=== PATIENT | male | born 1950 | race Caucasian/White ===

== ENCOUNTER 2017-08-02 07:03 | Inpatient (IN) | payer MEDICARE, MEDICAID ==
[2017-08-02 08:21] LABS: Hematocrit 35 % (42-52); Mean Corpuscular HGB Conc 32 g/dl (31-36); Mean Corpuscular Hemoglobin 25 pg (27-31); Mean Corpuscular Volume 78 fL (80-94); Mean Platelet Volume 7 um3 (7.4-10.4); Red Blood Count 4.44 10^6/ul (4.0-5.4); Red Cell Distribution Width 17 % (10.5-15); White Blood Count 4.9 10^3/ul (3.5-10.8)
[2017-08-02 08:22] LABS: Urine Bacteria Absent (Absent); Urine Bilirubin Negative (Negative); Urine Glucose Negative (Negative); Urine Nitrite Negative (Negative)
[2017-08-02 08:28] LABS: ALT 8 U/L (7-52); AST 15 U/L (13-39); Alkaline Phosphatase 83 U/L (34-104); Anion Gap 7 mmol/L (2-11); BUN/Creatinine Ratio 9.7 (8-20); Blood Urea Nitrogen 11 mg/dL (6-24); CO2 Carbon Dioxide 27 mmol/L (22-32); Calcium 9.8 mg/dL (8.6-10.3); Chloride 106 mmol/L (101-111); EGFR African American 83.8 (>60); EGFR Non-African American 65.1 (>60); Globulin 3.4 g/dL (2-4); Glucose 112 mg/dL (70-100); Potassium 3.8 mmol/L (3.5-5.0); Sodium 140 mmol/L (133-145); Total Protein 7.4 g/dL (6.4-8.9)
[2017-08-02 08:33] LABS: Benzodiazepine Urine Screen Presumptive Positive (None Detect)
[2017-08-02] MEDS ORDERED: Loperamide CAP* 2 MG AFTER EACH LOOSE STOOL MDD 16 MG PO PRN (09:00)
[2017-08-02] MEDS ORDERED: Loperamide CAP* 4 MG INITIAL PRN DOSE PO ONE (09:00)
[2017-08-02 09:43] LABS: Acetaminophen < 15 mcg/mL; Alcohol < 10 mg/dL (<10)
[2017-08-02 09:57] LABS: TSH (Thyroid Stimulating Horm) 1.09 mcIU/mL (0.34-5.60)
[2017-08-02] MEDS ORDERED: LORazepam TAB(*) 1 MG PO ONE (11:11)
[2017-08-02] MEDS ORDERED: Nicotine Inhaler* 10 MG AMP INH PRN (11:55)
[2017-08-02] MEDS ORDERED: Acetaminophen TAB* 325 MG PO PRN (11:55)
[2017-08-02] MEDS ORDERED: Nicotine GUM* 2 MG PO PRN (11:55)
[2017-08-02] MEDS: Albuterol HFA INHALER* 8 gm MDI INH PRN ×2 (15:18→21:33)
--- NOTE | 2017-08-02 16:41 | ED ---
Raymundo Jennings Gabriel, scribed for Alejandro Canas MD on 08/02/17 at 0737 . Psychiatric Complaint - HPI Summary HPI Summary: This patient is a 67 year old M presenting to [facility] with a chief complaint of SI since 2 hours prior. Pt states that he was sitting in his car with a tube hooked up to the exhaust that ran into the car. He says he sat inside with the car running until the smell was unbearable. Pt reports attempting to kill himself with IV drugs but when he could no longer afford this he attempted to do so with his car. Additionally he states he recently stopped taking his Suboxone in hopes that it would kill him. He does see a professor of counseling and takes medication but says it has not helped him. He states that he is constantly reminded of what has happened to him in the past and cant suppress it. - History Of Current Complaint Chief Complaint: EDMentalHealth Time Seen by Provider: 08/02/17 07:35 Hx Obtained From: Patient Onset/Duration: Still Present Timing: Constant Has Suicidal: Reports: Thoughts, With A Plan, Demonstrates Gesture - Allergies/Home Medications Allergies/Adverse Reactions: Allergies Allergy/AdvReac Type Severity Reaction Status Date / Time Prochlorperazine Allergy Anxiety Verified 08/17/16 14:03 [From Compazine] Home Medications: Home Medications DULoxetine DR CAP* [Cymbalta CAP*] 60 mg PO DAILY 08/02/17 [History Confirmed ] clonazePAM TAB(*) [KlonoPIN TAB(*)] 1 mg PO DAILY MDD 1mg 08/02/17 [History Confirmed 08/02/17] PMH/Surg Hx/FS Hx/Imm Hx Previously Healthy: No Endocrine/Hematology History: Reports: Hx Diabetes Denies: Hx Anticoagulant Therapy, Hx Blood Disorders, Hx Blood Transfusions, Hx Bone Marrow Disease, Hx Systemic Lupus Erythematosus, Hx Sickle Cell Disease , Hx Thyroid Disease, Hx Anemia, Hx Unexplained Bleeding, Other Endocrine/ Hematological Disorders Cardiovascular History: Denies: Hx Congestive Heart Failure, Hx Hypertension Respiratory History: Reports: Hx Asthma, Hx Pneumonia, Hx Seasonal Allergies Denies: Hx Chronic Bronchitis, Hx Chronic Obstructive Pulmonary Disease (COPD ), Hx Cystic Fibrosis, Hx Lung Cancer, Hx Pleural Effusion, Hx Pulmonary Edema, Hx Pulmonary Embolism, Hx Sleep Apnea, Other Respiratory Problems/Disorders GI History: Reports: Hx Diverticulosis, Other GI Disorders - constipation Denies: Hx Cirrhosis, Hx Crohn's Disease, Hx Gall Bladder Disease, Hx Gastroesophageal Reflux Disease, Hx Gastrointestinal Bleed, Hx Hiatal Hernia, Hx Irritable Bowel, Hx Jaundice, Hx Obstructive Bowel, Hx Ileostomy, Hx Pyloric Stenosis, Hx Ulcer History: Denies: Hx Renal Disease Neurological History: Reports: Hx Headaches, Hx Migraine, Other Neuro Impairments/Disorders - Asberger's syndrome Denies: Hx Dementia, Hx Developmental Delay, Hx Nerve Disease, Hx Seizures, Hx Spinal Cord Injury, Hx Transient Ischemic Attacks (TIA) Psychiatric History: Reports: Hx Anxiety, Hx Depression, Hx Substance Abuse Denies: Hx Attention Deficit Hyperactivity Disorder, Hx Eating Disorder, Hx Panic Disorder, Hx Post Traumatic Stress Disorder, Hx Community Mental Health Tx , Hx Schizophrenia, Hx Bipolar Disorder, Hx Suicide Attempt, Hx of Violent Episodes Against Others, Other Psychiatric Issues/Disorders - Surgical History Surgery Procedure, Year, and Place: MULTIPLE NOSE JOBS Hx Anesthesia Reactions: No - Immunization History Date of Tetanus Vaccine: UNKNOWN Infectious Disease History: No Infectious Disease History: Denies: Hx Clostridium Difficile, Hx Hepatitis, Hx Human Immunodeficiency Virus (HIV), Hx of Known/Suspected MRSA, Hx Shingles, Hx Tuberculosis, Hx Known/ Suspected VRE, Hx Known/Suspected VRSA, History Other Infectious Disease, Traveled Outside the [place] in Last 30 Days - Family History Known Family History: Positive: Other - Hx of family depression - Social History Alcohol Use: None Substance Use Type: Reports: Heroin Substance Use Comment - Amount & Last Used: has not used in over 1 year Smoking Status (MU): Former Smoker Review of Systems Negative: Fever Positive: Other - SI All Other Systems Reviewed And Are Negative: Yes Physical Exam - Summary Physical Exam Summary: The patient is well-nourished in no acute distress and in no acute pain. The skin is warm and dry and skin color reflects adequate perfusion. HEENT: ~The head is normocephalic and atraumatic. The pupils are equal and reactive. The conjunctivae are clear and without drainage. ~Nares are patent and without drainage. ~Mouth reveals moist mucous membranes and the throat is without erythema and exudate. ~The external ears are intact. The ear canals are patent and without drainage. The tympanic membranes are intact. Neck is supple with full range of motion and non-tender. There are no carotid bruits. ~There is no neck vein distension. Respiratory: Chest is non-tender. ~Lungs are clear to auscultation and breath sounds are symmetrical and equal. Cardiovascular: Heart is regular rate and rhythm. ~There is no murmur or rub auscultated. ~~There is no peripheral edema and pulses are symmetrical and equal. Abdomen: The abdomen is soft and non-tender. ~There are normal bowel sounds heard in all four quadrants and there is no organomegaly palpated. Musculoskeletal: There is no back pain noted. ~Extremities are non-tender with full range of motion. ~There is good capillary refill. ~There is no peripheral edema or calf tenderness elicited. Neurological: Patient is alert and oriented to person, place and time. ~The patient has symmetrical motor strength in all four extremities. ~Cranial nerves are grossly intact. Deep tendon reflexes are symmetrical and equal in all four extremities. Triage Information Reviewed: Yes Vital Signs On Initial Exam: Initial Vitals Temp Pulse Resp BP Pulse Ox 98.3 F 99 18 126/70 99 08/02/17 07:12 08/02/17 07:12 08/02/17 07:12 08/02/17 07:12 08/02/17 07:12 Vital Signs Reviewed: Yes Diagnostics - Vital Signs Vital Signs Temp Pulse Resp BP Pulse Ox 08/02/17 07:12 98.3 F 99 18 126/70 99 - Laboratory Lab Results: Lab Results 08/02/17 08/02/17 08/02/17 Range/Units 08:00 08:00 08:00 WBC 4.9 (3.5-10.8) 10^3/ul RBC 4.44 (4.0-5.4) 10^6/ul Hgb 11.0 L (14.0-18.0) g/dl Hct 35 L (42-52) % MCV 78 L (80-94) fL MCH 25 L (27-31) pg MCHC 32 (31-36) g/dl RDW 17 H (10.5-15) % Plt Count 177 (150-450) 10^3/ul MPV 7 L (7.4-10.4) um3 Neut % (Auto) 79.9 (38-83) % Lymph % (Auto) 12.2 L (25-47) % [place] % (Auto) 5.6 (1-9) % Eos % (Auto) 1.0 (0-6) % Baso % (Auto) 1.3 (0-2) % Absolute Neuts (auto) 3.9 (1.5-7.7) 10^3/ul Absolute Lymphs (auto) 0.6 L (1.0-4.8) 10^3/ul Absolute Monos (auto) 0.3 (0-0.8) 10^3/ul Absolute Eos (auto) 0.1 (0-0.6) 10^3/ul Absolute Basos (auto) 0.1 (0-0.2) 10^3/ul Absolute Nucleated RBC 0 10^3/ul Nucleated RBC % 0 Carbon Monoxide Screen < 4 (<4.0) % Sodium 140 (133-145) mmol/L Potassium 3.8 (3.5-5.0) mmol/L Chloride 106 (101-111) mmol/L Carbon Dioxide 27 (22-32) mmol/L Anion Gap 7 (2-11) mmol/L BUN 11 (6-24) mg/dL Creatinine 1.13 (0.67-1.17) mg/dL Est GFR ( Amer) 83.8 (>60) Est GFR (Non-Af Amer) 65.1 (>60) BUN/Creatinine Ratio 9.7 (8-20) Glucose 112 H (70-100) mg/dL Calcium 9.8 (8.6-10.3) mg/dL Total Bilirubin 1.00 (0.2-1.0) mg/dL AST 15 (13-39) U/L ALT 8 (7-52) U/L Alkaline Phosphatase 83 (34-104) U/L Total Protein 7.4 (6.4-8.9) g/dL Albumin 4.0 (3.2-5.2) g/dL Globulin 3.4 (2-4) g/dL Albumin/Globulin Ratio 1.2 (1-3) TSH 1.09 (0.34-5.60) mcIU/mL Urine Color Urine Appearance Urine pH (5-9) Ur Specific [place] (1.010-1.030) Urine Protein (Negative) Urine Ketones (Negative) Urine Blood (Negative) Urine Nitrate (Negative) Urine Bilirubin (Negative) Urine Urobilinogen (Negative) Ur Leukocyte Esterase (Negative) Urine WBC (Auto) (Absent) Urine RBC (Auto) (Absent) Ur Squamous Epith Cells (Absent) Urine Bacteria (Absent) Hyaline Casts (Absent) Urine Glucose (Negative) Salicylates 3.30 (<30) mg/dL Urine Opiates Screen (None Detect) Acetaminophen < 15 mcg/mL Ur Barbiturates Screen (None Detect) Ur Phencyclidine Scrn (None Detect) Ur Amphetamines Screen (None Detect) U Benzodiazepines Scrn (None Detect) Urine Cocaine Screen (None Detect) U Cannabinoids Screen (None Detect) Serum Alcohol < 10 (<10) mg/dL 08/02/17 08/02/17 Range/Units 08:00 08:00 WBC (3.5-10.8) 10^3/ul RBC (4.0-5.4) 10^6/ul Hgb (14.0-18.0) g/dl Hct (42-52) % MCV (80-94) fL MCH (27-31) pg MCHC (31-36) g/dl RDW (10.5-15) % Plt Count (150-450) 10^3/ul MPV (7.4-10.4) um3 Neut % (Auto) (38-83) % Lymph % (Auto) (25-47) % [place] % (Auto) (1-9) % Eos % (Auto) (0-6) % Baso % (Auto) (0-2) % Absolute Neuts (auto) (1.5-7.7) 10^3/ul Absolute Lymphs (auto) (1.0-4.8) 10^3/ul Absolute Monos (auto) (0-0.8) 10^3/ul Absolute Eos (auto) (0-0.6) 10^3/ul Absolute Basos (auto) (0-0.2) 10^3/ul Absolute Nucleated RBC 10^3/ul Nucleated RBC % Carbon Monoxide Screen (<4.0) % Sodium (133-145) mmol/L Potassium (3.5-5.0) mmol/L Chloride (101-111) mmol/L Carbon Dioxide (22-32) mmol/L Anion Gap (2-11) mmol/L BUN (6-24) mg/dL Creatinine (0.67-1.17) mg/dL Est GFR ( Amer) (>60) Est GFR (Non-Af Amer) (>60) BUN/Creatinine Ratio (8-20) Glucose (70-100) mg/dL Calcium (8.6-10.3) mg/dL Total Bilirubin (0.2-1.0) mg/dL AST (13-39) U/L ALT (7-52) U/L Alkaline Phosphatase (34-104) U/L Total Protein (6.4-8.9) g/dL Albumin (3.2-5.2) g/dL Globulin (2-4) g/dL Albumin/Globulin Ratio (1-3) TSH (0.34-5.60) mcIU/mL Urine Color Yellow Urine Appearance Clear Urine pH 5.0 (5-9) Ur Specific [place] 1.019 (1.010-1.030) Urine Protein Negative (Negative) Urine Ketones Negative (Negative) Urine Blood 1+ H (Negative) Urine Nitrate Negative (Negative) Urine Bilirubin Negative (Negative) Urine Urobilinogen Negative (Negative) Ur Leukocyte Esterase Negative (Negative) Urine WBC (Auto) Trace(0-5/hpf) (Absent) Urine RBC (Auto) Trace(0-2/hpf) (Absent) Ur Squamous Epith Cells Present H (Absent) Urine Bacteria Absent (Absent) Hyaline Casts Present H (Absent) Urine Glucose Negative (Negative) Salicylates (<30) mg/dL Urine Opiates Screen (None Detect) Acetaminophen mcg/mL Ur Barbiturates Screen None detected (None Detect) Ur Phencyclidine Scrn (None Detect) Ur Amphetamines Screen None detected (None Detect) U Benzodiazepines Scrn Presumptive positive H (None Detect) Urine Cocaine Screen (None Detect) U Cannabinoids Screen None detected (None Detect) Serum Alcohol (<10) mg/dL Result Diagrams: 08/02/17 08:00 08/02/17 08:00 Lab Statement: Any lab studies that have been ordered have been reviewed, and results considered in the medical decision making process. Course/Dx - Course Course Of Treatment: Mr. Macias was medically cleared and had a MHE. He is being admitted in stable condition with a diagnosis of depression with suicidal ideation. - Differential Dx/Clinical Impression Provider Diagnosis: Depression with suicidal ideation Discharge - Discharge Plan Condition: Stable [place] [place] The documentation as recorded by the scribe, Fonseca,Anthony accurately reflects the service I personally performed and the decisions made by me, Alejandro Canas MD.
[2017-08-02] MEDS: Al Hydrox/Mg Hydrox/Simet LIQ* 30 ML UDC PO PRN (19:25)
[2017-08-02] MEDS: Buprenorphine/Naloxone 8-2 MG SL TAB* 1 TAB SL SCH (20:01)
[2017-08-02] MEDS: cloNIDine TAB* 0.1 MG Q4H DAYS 1 TO 4 PO SCH ×2 (22:45→22:52)
[2017-08-02] MEDS: Multivitamins/Minerals TAB* DAILY PO SCH (22:45)
[2017-08-02] MEDS ORDERED: CLONIDINE PO ONE (23:00)
[2017-08-02] MEDS: Q4H PRN PO (23:10)
[2017-08-02] MEDS: ACETAMINOPHEN 650 MG PO (23:10)
[2017-08-02] MEDS: Ibuprofen TAB* 400 MG Q6H PRN PO (23:15)
[2017-08-03] MEDS: Carisoprodol TAB* 350 MG Q6H PRN PO ×2 (01:12→11:19)
[2017-08-03] MEDS: cloNIDine TAB* 0.1 MG Q4H DAYS 1 TO 4 PO SCH ×3 (02:45→10:09)
[2017-08-03] MEDS: Albuterol HFA INHALER* 8 gm MDI INH PRN (03:27)
[2017-08-03] MEDS: Ibuprofen TAB* 400 MG Q6H PRN PO ×2 (04:35→11:19)
[2017-08-03] MEDS: ACETAMINOPHEN 650 MG PO ×3 (04:35→13:23)
[2017-08-03] MEDS: Q4H PRN PO ×3 (04:35→13:23)
[2017-08-03] MEDS ORDERED: Vitamin THERAPEUTIC TAB PO SCH (09:00)
[2017-08-03] MEDS: Buprenorphine/Naloxone 8-2 MG SL TAB* 1 TAB SL SCH ×2 (09:00→20:31)
[2017-08-03] MEDS: DULoxetine DR CAP* 60 MG CAP.DR PO SCH (09:01)
[2017-08-03] MEDS: Multivitamins/Minerals TAB* DAILY PO SCH (09:01)
[2017-08-03] MEDS: clonazePAM TAB(*) 1 MG PO SCH (09:01)
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
[2017-08-03] MEDS: Acetaminophen TAB* 325 MG PO PRN (18:13)
[2017-08-03] MEDS: Mirtazapine TAB* 15 MG PO SCH (20:31)
[2017-08-04] MEDS: Acetaminophen TAB* 325 MG PO PRN ×2 (01:44→20:27)
[2017-08-04] MEDS: Ibuprofen TAB* 600 MG PO PRN ×2 (03:49→16:49)
[2017-08-04] MEDS: clonazePAM TAB(*) 1 MG PO SCH ×2 (10:12→20:29)
[2017-08-04] MEDS: DULoxetine DR CAP* 60 MG CAP.DR PO SCH (10:12)
[2017-08-04] MEDS: Buprenorphine/Naloxone 8-2 MG SL TAB* 1 TAB SL SCH ×2 (10:12→20:28)
--- NOTE | 2017-08-04 16:15 | PN ---
Subjective - Subjective Service Type: 75568 Hosp care 15 min low complexity Subjective: Patient is seen for Dr. Talavera, who is unavailable today. The patient complains of weakness and fatigue and is uncertain if these are related to heroin withdrawal. He c/o poor sleep and notes that he usually takes his clonazepam at night and not in the morning. He denies SI and is tolerating his medications well. Objective - Appearance Appearance: Thin Framed Dysmorphic Features: No Hygiene: Normal Grooming: Fairly Well Kept - Behavior Psychomotor Activities: Abnormal-Decreased Exhibits Abnormal Movement: No - Attitude and Relatedness Attitude and Relatedness: Cooperative Eye Contact: Fair - Speech Quality: Unpressured Latencies: Normal Quantity: Terse - Mood Patient's Decription of Mood: "Okay" - Affect Observed Affect: Constricted Affect Consistent with: Dysphoria - Thought Process Patient's Thought Process: Coherent Thought Content: No Passive Wish, No Suicidal Planning, No Homicidal Ideation, No Paranoid Ideation - Sensorium Experiencing Hallucinations: No, Sensorium is Clear Type of Hallucinations: Visual: No, Auditory: No, Command: No - Level of Consciousness Level of Consciousness: Alert Orientation: Yes Intact, Yes Orientated to Time, Yes Orientated to Place, Yes Orientated to Person - Impulse Control Impulse Control: Poor - Insight and Judgement Insight and Judgement: Impaired - Group Participation Particating in Group Activities: No - Medication Management Medication Management Adherence: Yes Assessment - Assessment Merits Inpatient Hospitalization: For Immediate Safety, For Stabilization Inpatient DSM-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 single white male with a history of depression and opioid dependence who arrived, seeking voluntary admission for SI shortly after relapsing on heroin following several years of sobriety. Plan - Plan Treatment Plan: Name: HERO FRIEDMAN Birthdate: 1950 [id number] Patient on outpatient suboxone, duloxetine, clonazepam therapies. Mirtazapine added for insomnia. Continue inpatient treatment. Continued Medication Management: Continue Outpt Medication Medications: Current Medications Acetaminophen (Tylenol Tab*) 650 mg PO Q4H PRN PRN Reason: HEADACHE/DISCOMFORT Last Admin: 08/04/17 01:44 Dose: 650 mg Al Hydrox/Mg Hydrox/Simethicone (Maalox Plus*) 30 ml PO Q4H PRN PRN Reason: INDIGESTION Last Admin: 08/02/17 19:25 Dose: 30 ml Albuterol (Ventolin Hfa Inhaler*) 2 puff INH Q4H PRN PRN Reason: SOB/WHEEZING Last Admin: 08/03/17 03:27 Dose: 2 puff Buprenorphine/Naloxone (Suboxone 8-2 Mg Sl Tab*) 1 tab.sl SL BID [facility] Last Admin: 08/04/17 10:12 Dose: 1 tab.sl Duloxetine HCl (Cymbalta Cap*) 60 mg PO DAILY [facility] Last Admin: 08/04/17 10:12 Dose: 60 mg Ibuprofen (Motrin Tab*) 600 mg PO Q8H PRN PRN Reason: PAIN Last Admin: 08/04/17 03:49 Dose: 600 mg Mirtazapine (Remeron Tab*) 7.5 mg PO BEDTIME [facility] Last Admin: 08/03/17 20:31 Dose: 7.5 mg Nicotine (Nicotine Inhaler*) 10 mg INH Q2H PRN PRN Reason: CRAVING Nicotine Polacrilex (Nicotine Gum*) 2 mg PO Q2H PRN PRN Reason: CRAVING - Discharge Plan Discharge Plan: Inpatient Hospitalization
[2017-08-04] MEDS: Al Hydrox/Mg Hydrox/Simet LIQ* 30 ML UDC PO PRN (20:27)
[2017-08-04] MEDS: Mirtazapine TAB* 15 MG PO SCH (20:28)
[2017-08-05] MEDS: Al Hydrox/Mg Hydrox/Simet LIQ* 30 ML UDC PO PRN ×3 (04:25→12:59)
[2017-08-05] MEDS: DULoxetine DR CAP* 60 MG CAP.DR PO SCH (08:39)
[2017-08-05] MEDS: Buprenorphine/Naloxone 8-2 MG SL TAB* 1 TAB SL SCH ×2 (08:39→20:34)
[2017-08-05] MEDS ORDERED: Famotidine TAB* 20 MG PO SCH (14:00)
[2017-08-05] MEDS ORDERED: Famotidine TAB* 20 MG PO PRN (15:00)
--- NOTE | 2017-08-05 18:31 | PN ---
Subjective - Subjective Service Type: 88171 Hosp care 15 min low complexity Subjective: Earlier during the day patient complained of chest tightness which improved with PRN inhaler. He also believes that he has C Def. Sleep continues to be poor but in bed most of the time due to lack of energy. Doesn't want anybody to look at his ostomy. Otherwise denies hallucinations, delusions SI or HI. Objective - Appearance Appearance: Healthy Appearing Dysmorphic Features: No Hygiene: Mal-odorous Grooming: Disheveled - Behavior Psychomotor Activities: Normal Exhibits Abnormal Movement: No - Attitude and Relatedness Attitude and Relatedness: Superficially Cooperative Eye Contact: Poor - Speech Quality: Unpressured Latencies: Normal Quantity: Appropriate - Mood Patient's Decription of Mood: "Fine" - Affect Observed Affect: Non-labile Affect Consistent with: Euthymia - Thought Process Patient's Thought Process: Coherent, Goal Directed Thought Content: No Passive Wish, No Suicidal Planning, No Homicidal Ideation, No Paranoid Ideation - Sensorium Experiencing Hallucinations: No, Sensorium is Clear Type of Hallucinations: Visual: No, Auditory: No, Command: No - Level of Consciousness Level of Consciousness: Alert Orientation: Yes Intact, Yes Orientated to Time, Yes Orientated to Place, Yes Orientated to Person - Impulse Control Impulse Control: Intact - Insight and Judgement Insight and Judgement: Poor - Group Participation Particating in Group Activities: No - Medication Management Medication Management Adherence: Yes Assessment - Assessment Merits Inpatient Hospitalization: For Stabilization, Consolidate Improvements, For Discharge Planning Inpatient DSM-IV Dx: 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sl SL BID [facility] Last Admin: 08/05/17 08:39 Dose: 1 tab.sl Clonazepam (Klonopin Tab(*)) 1 mg PO BEDTIME [facility] Last Admin: 08/04/17 20:29 Dose: 1 mg Duloxetine HCl (Cymbalta Cap*) 60 mg PO DAILY [facility] Last Admin: 08/05/17 08:39 Dose: 60 mg Famotidine (Pepcid Tab*) 10 mg PO DAILY PRN PRN Reason: INDIGESTION Last Admin: 08/05/17 14:37 Dose: 10 mg Ibuprofen (Motrin Tab*) 600 mg PO Q8H PRN PRN Reason: PAIN Last Admin: 08/04/17 16:49 Dose: 600 mg Mirtazapine (Remeron Tab*) 7.5 mg PO BEDTIME [facility] Last Admin: 08/04/17 20:28 Dose: 7.5 mg Nicotine (Nicotine Inhaler*) 10 mg INH Q2H PRN PRN Reason: CRAVING Nicotine Polacrilex (Nicotine Gum*) 2 mg PO Q2H PRN PRN Reason: CRAVING - Discharge Plan Discharge Plan: Outpatient Follow Up Outpatient Program: [facility]
[2017-08-05] MEDS: Ibuprofen TAB* 600 MG PO PRN (18:39)
[2017-08-05] MEDS: clonazePAM TAB(*) 1 MG PO SCH (20:35)
[2017-08-05] MEDS: Mirtazapine TAB* 15 MG PO SCH (20:36)
[2017-08-06] MEDS: Acetaminophen TAB* 325 MG PO PRN ×4 (03:55→20:24)
[2017-08-06] MEDS ORDERED: cloNIDine TAB* DOSING for DAY 5 PO SCH (06:00)
[2017-08-06] MEDS: DULoxetine DR CAP* 60 MG CAP.DR PO SCH (08:22)
[2017-08-06] MEDS: Buprenorphine/Naloxone 8-2 MG SL TAB* 1 TAB SL SCH ×2 (08:22→20:26)
[2017-08-06] MEDS: Al Hydrox/Mg Hydrox/Simet LIQ* 30 ML UDC PO PRN (15:54)
[2017-08-06] MEDS: Mirtazapine TAB* 15 MG PO SCH (20:25)
[2017-08-06] MEDS: clonazePAM TAB(*) 1 MG PO SCH (20:25)
[2017-08-07] MEDS ORDERED: cloNIDine TAB* DOSING for DAY 6 PO SCH (06:00)
[2017-08-07] MEDS: Acetaminophen TAB* 325 MG PO PRN (07:50)
[2017-08-07] MEDS: DULoxetine DR CAP* 60 MG CAP.DR PO SCH (07:51)
[2017-08-07] MEDS: Buprenorphine/Naloxone 8-2 MG SL TAB* 1 TAB SL SCH ×2 (07:51→21:15)
[2017-08-07] MEDS: Ibuprofen TAB* 600 MG PO PRN (10:18)
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
[2017-08-07] MEDS: Mirtazapine TAB* 15 MG PO SCH (21:16)
[2017-08-07] MEDS: clonazePAM TAB(*) 1 MG PO SCH (21:17)
[2017-08-08] MEDS: Buprenorphine/Naloxone 8-2 MG SL TAB* 1 TAB SL SCH (07:24)
[2017-08-08] MEDS: Acetaminophen TAB* 325 MG PO PRN (07:24)
[2017-08-08] MEDS: DULoxetine DR CAP* 60 MG CAP.DR PO SCH (07:24)
[2017-08-08 08:22] VITALS: BP 108/63
[2017-08-08] MEDS ORDERED: cloNIDine TAB* DOSING FOR DAY 7 PO SCH (09:00)
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
== END 2017-08-08 14:30 | disposition home or self-care (01) | DRG 882 ==
LOC: ED 07:03 → BSU 14:48
PROVIDERS: ADMIT Psychiatry & Neurology Psychiatry; ATTEND Psychiatry & Neurology Psychiatry
DX: F43.10 Post-traumatic stress disorder, unspecified (principal); F33.2 Major depressive disorder, recurrent severe without psychotic features; R45.851 Suicidal ideations; E11.9 Type 2 diabetes mellitus without complications; F84.5 Asperger's syndrome; J45.909 Unspecified asthma, uncomplicated; K57.90 Diverticulosis of intestine, part unspecified, without perforation or abscess without bleeding; G43.909 Migraine, unspecified, not intractable, without status migrainosus; F41.9 Anxiety disorder, unspecified; Z62.810 Personal history of physical and sexual abuse in childhood; F60.9 Personality disorder, unspecified; K21.9 Gastro-esophageal reflux disease without esophagitis; F11.29 Opioid dependence with unspecified opioid-induced disorder; Z88.8 Allergy status to other drugs, medicaments and biological substances; Z81.8 Family history of other mental and behavioral disorders; Z87.891 Personal history of nicotine dependence; Z93.3 Colostomy status
CPT/HCPCS: 36415; 80053; 80307; 80320; 80329; 81003; 81015; 82375; 84443; 85025; 99222; 99231; A9270-GY; G0480

== ENCOUNTER 2017-10-07 19:27 | Observation (INO) | payer MEDICARE, MEDICAID ==
[2017-10-07 21:20] LABS: ABS Basophils 0.1 10^3/ul (0-0.2); ABS Eosinophils 0.3 10^3/ul (0-0.6); ABS Lymphocytes 1.8 10^3/ul (1.0-4.8); ABS Monocytes 0.7 10^3/ul (0-0.8); ABS Neutrophils 4.4 10^3/ul (1.5-7.7); ABS Nucleated RBC 0 10^3/ul; Eosinophil % 4.2 % (0-6); Hematocrit 34 % (42-52); Hemoglobin 11.2 g/dl (14.0-18.0); Lymphocyte % 24.4 % (25-47); Mean Corpuscular HGB Conc 33 g/dl (31-36); Mean Corpuscular Hemoglobin 27 pg (27-31); Mean Corpuscular Volume 82 fL (80-94); Mean Platelet Volume 7 um3 (7.4-10.4); Nucleated Red Blood Cells % 0; Platelet Count 223 10^3/ul (150-450); Red Blood Count 4.16 10^6/ul (4.0-5.4); Red Cell Distribution Width 17 % (10.5-15); White Blood Count 7.3 10^3/ul (3.5-10.8)
[2017-10-07 21:32] LABS: EGFR Non-African American 67.9 (>60)
--- NOTE | 2017-10-07 21:42 | RAD ---
HISTORY: Fall, syncope COMPARISONS: None TECHNIQUE: Multiple contiguous axial CT scans were obtained of the head without intravenous contrast. FINDINGS: HEMORRHAGE/INFARCT: There is no hemorrhage or acute infarct. MASSES/SHIFT: There is no mass or shift. EXTRA-AXIAL SPACES: There are no extra-axial fluid collections. SULCI AND VENTRICLES: The sulci and ventricles are normal in size and position for the patient's stated age. CEREBRUM: There are no focal parenchymal abnormalities. BRAINSTEM: There are no focal parenchymal abnormalities. CEREBELLUM: There are no focal parenchymal abnormalities. VESSELS: The vessels are grossly normal. PARANASAL SINUSES: There is mucosal thickening of ethmoid air cells. There are small air-fluid levels within the maxillary sinuses bilaterally. There is a small left mastoid effusion. ORBITS: The orbits are unremarkable. BONES AND SOFT TISSUE: No bone or soft tissue abnormalities are noted. OTHER: None IMPRESSION: 1. NO ACUTE INTRACRANIAL PATHOLOGY. 2. MILD SINUS MUCOSAL INFLAMMATORY DISEASE, WITH AIR-FLUID LEVELS IN THE MAXILLARY SINUSES BILATERALLY. IN THE CORRECT CLINICAL SETTING, THIS MAY REPRESENT ACUTE SINUSITIS. THERE IS A SMALL LEFT MASTOID EFFUSION.
--- NOTE | 2017-10-08 00:18 | ED ---
Liv Jennings Emily, scribed for Guerrero Min MD on 10/07/17 at 2121 . Complex/Multi-Sys Presentation - HPI Summary HPI Summary: This patient is a 67 year old [facility] that began 3 days ago. Pt reports falling multiple times during the day and night. Pt reports that he walks in his sleep and he is unsure exactly how many times he has fallen. The patient rates the pain 2/10 in severity. Symptoms aggravated by nothing. Symptoms alleviated by nothing. Patient reports TABARES and bruising. Patient denies HI, SI, and dizziness. Pt reports having similar symptoms 1 year ago. - History Of Current Complaint Chief Complaint: EDGeneral Time Seen by Provider: 10/07/17 20:36 Hx Obtained From: Patient Onset/Duration: Sudden Onset, Lasting Days, Still Present Timing: Constant Severity Currently: Mild Severity Initially: Mild Aggravating Factor(s): Nothing Alleviating Factor(s): Nothing Associated Signs And Symptoms: Positive: Other - Positive TABARES and bruising. Patient denies dizziness - Allergies/Home Medications Allergies/Adverse Reactions: Allergies Allergy/AdvReac Type Severity Reaction Status Date / Time Prochlorperazine AdvReac Anxiety Verified 08/02/17 18:43 [From Compazine] PMH/Surg Hx/FS Hx/Imm Hx Previously Healthy: No Endocrine/Hematology History: Denies: Hx Anticoagulant Therapy, Hx Blood Disorders, Hx Blood Transfusions, Hx Bone Marrow Disease, Hx Diabetes, Hx Systemic Lupus Erythematosus, Hx Sickle Cell Disease, Hx Thyroid Disease, Hx Anemia, Hx Unexplained Bleeding, Other Endocrine/Hematological Disorders Cardiovascular History: Denies: Hx Congestive Heart Failure, Hx Hypertension Respiratory History: Reports: Hx Asthma, Hx Pneumonia, Hx Seasonal Allergies Denies: Hx Chronic Bronchitis, Hx Chronic Obstructive Pulmonary Disease (COPD ), Hx Cystic Fibrosis, Hx Lung Cancer, Hx Pleural Effusion, Hx Pulmonary Edema, Hx Pulmonary Embolism, Hx Sleep Apnea, Other Respiratory Problems/Disorders GI History: Reports: Hx Diverticulosis, Other GI Disorders - constipation, colostomy Denies: Hx Cirrhosis, Hx Crohn's Disease, Hx Gall Bladder Disease, Hx Gastroesophageal Reflux Disease, Hx Gastrointestinal Bleed, Hx Hiatal Hernia, Hx Irritable Bowel, Hx Jaundice, Hx Obstructive Bowel, Hx Ileostomy, Hx Pyloric Stenosis, Hx Ulcer History: Reports: Hx Kidney Infection - Acute kidney infection Denies: Hx Renal Disease Sensory History: Reports: Hx Contacts or Glasses Denies: Hx Hearing Aid Opthamlomology History: Reports: Hx Contacts or Glasses Neurological History: Reports: Hx Headaches, Hx Migraine, Other Neuro Impairments/Disorders - Asberger's syndrome Denies: Hx Dementia, Hx Developmental Delay, Hx Nerve Disease, Hx Seizures, Hx Spinal Cord Injury, Hx Transient Ischemic Attacks (TIA) Psychiatric History: Reports: Hx Anxiety, Hx Depression, Hx Substance Abuse Denies: Hx Attention Deficit Hyperactivity Disorder, Hx Eating Disorder, Hx Panic Disorder, Hx Post Traumatic Stress Disorder, Hx Community Mental Health Tx , Hx Schizophrenia, Hx Bipolar Disorder, Hx Suicide Attempt, Hx of Violent Episodes Against Others, Other Psychiatric Issues/Disorders - Surgical History Surgery Procedure, Year, and Place: MULTIPLE NOSE JOBS, sigmond colostomy 2015, cytoplasty Hx Anesthesia Reactions: No - Immunization History Date of Tetanus Vaccine: UNKNOWN Date of Influenza Vaccine: 05/2017 Immunizations Up to Date: Yes Infectious Disease History: No Infectious Disease History: Reports: Hx Clostridium Difficile, History Other Infectious Disease - chicken pox Denies: Hx Hepatitis, Hx Human Immunodeficiency Virus (HIV), Hx of Known/ Suspected MRSA, Hx Shingles, Hx Tuberculosis, Hx Known/Suspected VRE, Hx Known/ Suspected VRSA, Traveled Outside the [place] in Last 30 Days - Family History Known Family History: Positive: Other - Hx of family depression - Social History Occupation: Employed Full-time Lives: With Family Alcohol Use: None Substance Use Type: Reports: Heroin Substance Use Comment - Amount & Last Used: has not used in over 1 year Smoking Status (MU): Former Smoker Amount Used/How Often: pt has not used tobacco products in the last 30 days Review of Systems Negative: Fever, Chills Negative: Erythema Negative: Sore Throat Negative: Chest Pain Negative: Shortness Of Breath, Cough Negative: Abdominal Pain, Vomiting, Nausea Negative: dysuria, hematuria Negative: Myalgia, Edema Positive: Bruising. Negative: Rash Neurological: Other - Negative dizziness Positive: Headache Positive: Other - Negative SI and HI All Other Systems Reviewed And Are Negative: Yes Physical Exam - Summary Physical Exam Summary: Constitutional: Well-developed, Well-nourished, Alert. (-) Distressed Skin: Warm, Dry HENT: Normocephalic; Atraumatic Eyes: Conjunctiva normal Neck: Musculoskeletal ROM normal neck. (-) JVD, (-) Stridor, (-) Tracheal deviation Cardio: Rhythm regular, rate normal, Heart sounds normal; Intact distal pulses; The pedal pulses are 2+ and symmetric. Radial pulses are 2+ and symmetric. (-) Murmur Pulmonary/Chest wall: Effort normal. (-) Respiratory distress, (-) Wheezes, (-) Rales Abd: Soft, (-) Tenderness, (-) Distension, (-) Guarding, (-) Rebound Musculoskeletal: (-) Edema, (+) Tenderness about L2 Lymph: (-) Cervical adenopathy Neuro: Alert, Oriented x3 Psych: Mood and affect Normal Triage Information Reviewed: Yes Vital Signs On Initial Exam: Initial Vitals Temp Pulse Resp BP Pulse Ox 97.4 F 96 18 113/79 98 10/07/17 19:34 10/07/17 19:34 10/07/17 19:34 10/07/17 19:34 10/07/17 19:34 Vital Signs Reviewed: Yes - [place] Coma Scale Coma Scale Total: 15 Diagnostics - Vital Signs Vital Signs Temp Pulse Resp BP Pulse Ox 10/07/17 19:34 97.4 F 96 18 113/79 98 - Laboratory Lab Results: Lab Results 10/07/17 10/07/17 10/07/17 Range/Units 21:08 21:08 21:08 WBC 7.3 (3.5-10.8) 10^3/ul RBC 4.16 (4.0-5.4) 10^6/ul Hgb 11.2 L (14.0-18.0) g/dl Hct 34 L (42-52) % MCV 82 (80-94) fL MCH 27 (27-31) pg MCHC 33 (31-36) g/dl RDW 17 H (10.5-15) % Plt Count 223 (150-450) 10^3/ul MPV 7 L (7.4-10.4) um3 Neut % (Auto) 60.7 (38-83) % Lymph % (Auto) 24.4 L (25-47) % O[place]Brien % (Auto) 9.6 H (1-9) % Eos % (Auto) 4.2 (0-6) % Baso % (Auto) 1.1 (0-2) % Absolute Neuts (auto) 4.4 (1.5-7.7) 10^3/ul Absolute Lymphs (auto) 1.8 (1.0-4.8) 10^3/ul Absolute Monos (auto) 0.7 (0-0.8) 10^3/ul Absolute Eos (auto) 0.3 (0-0.6) 10^3/ul Absolute Basos (auto) 0.1 (0-0.2) 10^3/ul Absolute Nucleated RBC 0 10^3/ul Nucleated RBC % 0 Sodium 140 (133-145) mmol/L Potassium 3.3 L (3.5-5.0) mmol/L Chloride 103 (101-111) mmol/L Carbon Dioxide 31 (22-32) mmol/L Anion Gap 6 (2-11) mmol/L BUN 23 (6-24) mg/dL Creatinine 1.09 (0.67-1.17) mg/dL Est GFR ( Amer) 87.3 (>60) Est GFR (Non-Af Amer) 67.9 (>60) BUN/Creatinine Ratio 21.1 H (8-20) Glucose 88 (70-100) mg/dL Lactic Acid (0.5-2.0) mmol/L Calcium 9.6 (8.6-10.3) mg/dL Total Bilirubin 1.40 H (0.2-1.0) mg/dL AST 43 H (13-39) U/L ALT 21 (7-52) U/L Alkaline Phosphatase 73 (34-104) U/L Ammonia 32 (16-53) mol/L Troponin I 0.00 (<0.04) ng/mL Total Protein 7.6 (6.4-8.9) g/dL Albumin 4.2 (3.2-5.2) g/dL Globulin 3.4 (2-4) g/dL Albumin/Globulin Ratio 1.2 (1-3) Serum Alcohol < 10 (<10) mg/dL 10/07/17 Range/Units 21:08 WBC (3.5-10.8) 10^3/ul RBC (4.0-5.4) 10^6/ul Hgb (14.0-18.0) g/dl Hct (42-52) % MCV (80-94) fL MCH (27-31) pg MCHC (31-36) g/dl RDW (10.5-15) % Plt Count (150-450) 10^3/ul MPV (7.4-10.4) um3 Neut % (Auto) (38-83) % Lymph % (Auto) (25-47) % O[place]Brien % (Auto) (1-9) % Eos % (Auto) (0-6) % Baso % (Auto) (0-2) % Absolute Neuts (auto) (1.5-7.7) 10^3/ul Absolute Lymphs (auto) (1.0-4.8) 10^3/ul Absolute Monos (auto) (0-0.8) 10^3/ul Absolute Eos (auto) (0-0.6) 10^3/ul Absolute Basos (auto) (0-0.2) 10^3/ul Absolute Nucleated RBC 10^3/ul Nucleated RBC % Sodium (133-145) mmol/L Potassium (3.5-5.0) mmol/L Chloride (101-111) mmol/L Carbon Dioxide (22-32) mmol/L Anion Gap (2-11) mmol/L BUN (6-24) mg/dL Creatinine (0.67-1.17) mg/dL Est GFR ( Amer) (>60) Est GFR (Non-Af Amer) (>60) BUN/Creatinine Ratio (8-20) Glucose (70-100) mg/dL Lactic Acid 1.0 (0.5-2.0) mmol/L Calcium (8.6-10.3) mg/dL Total Bilirubin (0.2-1.0) mg/dL AST (13-39) U/L ALT (7-52) U/L Alkaline Phosphatase (34-104) U/L Ammonia (16-53) mol/L Troponin I (<0.04) ng/mL Total Protein (6.4-8.9) g/dL Albumin (3.2-5.2) g/dL Globulin (2-4) g/dL Albumin/Globulin Ratio (1-3) Serum Alcohol (<10) mg/dL Result Diagrams: 10/07/17 21:08 10/07/17 21:08 Lab Statement: Any lab studies that have been ordered have been reviewed, and results considered in the medical decision making process. - Radiology Lumbar Spine XR Radiology Interpretation Completed By: ED Physician - Lumbar spine XR reveals, per ED physician, no acute disease. Rib XR Radiology Interpretation Completed By: ED Physician - Rib XR reveals, per ED physician, no acute disease. - CT Brain CT CT Interpretation Completed By: Radiologist - Brain CT reveals, per radiologist , 1. No acute intracranial pathology. 2. Mild sinus mucosal inflammatory disease , with air-fluid levels in the maxillary sinuses bilaterally. In the correct clinical setting, this may represent acute sinusitis. There is a small left mastoid effusion. ED physician has reviewed this radiology report. - EKG 2054 Cardiac Rate: NL EKG Rhythm: Sinus Rhythm - [address] Segment: Normal Complex Multi-Symp Course/Dx Assessment/Plan: S/O TO DR. BAZAN PENDING EVAL BY DR. NAVA FOR ADMISSION FOR REPEAT FALL S AND LOSS OF CONSCIOUSNESS - Diagnoses Provider Diagnoses: Frequent falls, Transient loss of consciousness Discharge - Discharge Plan Condition: Stable Disposition: OTHER Discharge Disposition Comment: sign off to Dr. Bazan pending evaluation by Dr. Nava Referrals: Adrian Thomason MD [Primary Care Provider] - The documentation as recorded by the Liv rodrigez Emily accurately reflects the service I personally performed and the decisions made by , Guerrero Min MD.
[2017-10-08 00:19] LABS: Urine Appearance Cloudy; Urine Blood Negative (Negative); Urine Color Amber; Urine Ketones Trace (Negative); Urine Protein 1+(30 mg/dL) (Negative); Urine Specific Gravity 1.036 (1.010-1.030); Urine Urobilinogen Positive (Negative)
[2017-10-08] MEDS ORDERED: Albuterol 2.5 MG/3 ML NEB.SOL* (0.083%) INH PRN (03:25)
[2017-10-08] MEDS ORDERED: CMCS: Melatonin (NF) 3 MG TAB PO PRN (03:25)
[2017-10-08] MEDS ORDERED: Ondansetron INJ* 2 MG/ML VIAL IV PRN (03:25)
[2017-10-08] MEDS ORDERED: traMADol TAB* 50 MG PO PRN (03:25)
[2017-10-08] MEDS ORDERED: Acetaminophen TAB* 325 MG PO PRN (03:25)
[2017-10-08] MEDS ORDERED: NS 0.9% 1000 ML* 1,000 ML IV SCH (03:30)
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
[2017-10-08 05:45] LABS: ABS Basophils 0.1 10^3/ul (0-0.2); ABS Eosinophils 0.3 10^3/ul (0-0.6); ABS Lymphocytes 1.3 10^3/ul (1.0-4.8); ABS Monocytes 0.6 10^3/ul (0-0.8); ABS Neutrophils 2.8 10^3/ul (1.5-7.7); ABS Nucleated RBC 0 10^3/ul; Eosinophil % 6.2 % (0-6); Hematocrit 30 % (42-52); Hemoglobin 9.9 g/dl (14.0-18.0); Lymphocyte % 24.7 % (25-47); Mean Corpuscular HGB Conc 33 g/dl (31-36); Mean Corpuscular Hemoglobin 27 pg (27-31); Mean Corpuscular Volume 81 fL (80-94); Mean Platelet Volume 7 um3 (7.4-10.4); Nucleated Red Blood Cells % 0.1; Platelet Count 192 10^3/ul (150-450); Red Blood Count 3.71 10^6/ul (4.0-5.4); Red Cell Distribution Width 17 % (10.5-15); White Blood Count 5.1 10^3/ul (3.5-10.8)
[2017-10-08 05:59] LABS: EGFR Non-African American 99.9 (>60)
[2017-10-08] MEDS ORDERED: Omeprazole CAP* 20 MG PO SCH (06:00)
[2017-10-08 06:24] LABS: INR 0.99 (0.77-1.02)
--- NOTE | 2017-10-08 07:43 | RAD ---
HISTORY: Right rib pain, fall COMPARISONS: None VIEWS: 4, Frontal and oblique views of the right hemithorax. FINDINGS: There is no displaced rib fracture or pneumothorax. The visualized lungs are clear. IMPRESSION: THERE IS NO DISPLACED RIB FRACTURE OR PNEUMOTHORAX
--- NOTE | 2017-10-08 07:45 | RAD ---
HISTORY: Fall, back pain COMPARISONS: CT dated August 21, 2016 VIEWS: 5 , Frontal, lateral, coned-down lateral sacral, and bilateral oblique views of the lumbar spine. FINDINGS: ALIGNMENT: The alignment is normal. VERTEBRAL BODIES: There is stable mild anterior wedging of T12.. The interpedicular distances are normal. There is mild anterolateral marginal ossified formation. JOINTS: There is diffuse facet osteoarthritis. This is most pronounced along the lower lumbar spine. INTERVERTEBRAL DISCS: There is diffuse loss of intervertebral disc height. SOFT TISSUE: A colostomy is noted OTHER: The pelvis is unremarkable. The lung bases are clear. IMPRESSION: DEGENERATIVE DISC DISEASE AND OSTEOARTHRITIS.
--- NOTE | 2017-10-08 08:32 | RAD ---
HISTORY: Left distal lower extremity pain, trauma COMPARISONS: None VIEWS: 2, Frontal and lateral views of the left foreleg FINDINGS: BONE DENSITY: Normal. BONES: There is no displaced fracture. JOINTS: There is no arthropathy. ALIGNMENT: There is no dislocation. SOFT TISSUES: Unremarkable. OTHER FINDINGS: None. IMPRESSION: NO ACUTE OSSEOUS INJURY. IF SYMPTOMS PERSIST, RECOMMEND REPEAT IMAGING.
[2017-10-08] MEDS ORDERED: Docusate CAP* 100 MG PO SCH (09:00)
[2017-10-08] MEDS ORDERED: Buprenorphine/Naloxone 8-2 MG SL TAB* 1 TAB SL SCH (09:00)
[2017-10-08 11:02] VITALS: BP 126/59
--- NOTE | 2017-10-08 11:47 | DCNOTE ---
Subjective Date of Service: 10/08/17 Interval History: C/O "all over', does not want to specify any particular area. He states he sleep walks and did so a few nights ago. He usually ties himself to the bed before he goes to sleep to prevent sleep walking. He feels safe going home now. Objective Active Medications: Acetaminophen (Tylenol Tab*) 650 mg PO Q6H PRN PRN Reason: FEVER/PAIN Last Admin: 10/08/17 11:10 Dose: 650 mg Albuterol (Ventolin 2.5 Mg/3 Ml Neb.Ivy*) 2.5 mg INH Q2H PRN PRN Reason: SOB/WHEEZING Buprenorphine/Naloxone (Suboxone 8-2 Mg Sl Tab*) 1 tab.sl SL BID [facility] Last Admin: 10/08/17 08:53 Dose: 1 tab.sl Docusate Sodium (Colace Cap*) 200 mg PO BID [facility] Last Admin: 10/08/17 08:53 Dose: 200 mg Heparin Sodium (Porcine) (Heparin Vial(*)) 5,000 units SUBCUT Q8HR [facility] Ondansetron HCl (Zofran Inj*) 4 mg IV Q6H PRN PRN Reason: NAUSEA Tramadol HCl (Ultram*) 50 mg PO Q6H PRN PRN Reason: PAIN Last Admin: 10/08/17 06:20 Dose: 50 mg Vital Signs - 8 hr 10/08/17 10/08/17 10/08/17 04:00 04:30 05:02 Temperature 99.2 F Pulse Rate 75 77 83 Respiratory 16 Rate Blood Pressure 119/68 123/67 118/71 (mmHg) O2 Sat by Pulse 98 95 97 Oximetry 10/08/17 10/08/17 10/08/17 05:55 06:20 07:26 Temperature 98.4 F 98.0 F Pulse Rate 79 76 Respiratory 16 20 16 Rate Blood Pressure 133/58 126/59 (mmHg) O2 Sat by Pulse 98 97 Oximetry 10/08/17 10/08/17 10/08/17 07:32 08:00 08:46 Temperature Pulse Rate 79 Respiratory 18 16 16 Rate Blood Pressure (mmHg) O2 Sat by Pulse 98 Oximetry 10/08/17 10/08/17 08:53 11:21 Temperature Pulse Rate Respiratory 16 16 Rate Blood Pressure (mmHg) O2 Sat by Pulse Oximetry Oxygen Devices in Use Now: None Appearance: Alert, partly up in bed. In good spirits. Looks comfortable. Eyes: No Scleral Icterus Respiratory: Symmetrical Chest Expansion and Respiratory Effort, Clear to Percussion - upper airway high-pitched wheezing Extremities: No Clubbing, Cyanosis, - - L medial leg just above ankle swollen and tender, recent ecchymosis Skin: No Nodules or Sclerosis, - - L medial leg just above ankle swollen and tender, recent ecchymosis Neurological: Alert and Oriented x 3, NL Sensation Result Diagrams: 10/08/17 05:30 10/08/17 05:30 Additional Lab and Data: Lab Results 10/07/17 10/07/17 10/07/17 Range/Units 21:08 21:08 21:08 WBC 7.3 (3.5-10.8) 10^3/ul RBC 4.16 (4.0-5.4) 10^6/ul Hgb 11.2 L (14.0-18.0) g/dl Hct 34 L (42-52) % MCV 82 (80-94) fL MCH 27 (27-31) pg MCHC 33 (31-36) g/dl RDW 17 H (10.5-15) % Plt Count 223 (150-450) 10^3/ul MPV 7 L (7.4-10.4) um3 Neut % (Auto) 60.7 (38-83) % Lymph % (Auto) 24.4 L (25-47) % [place] % (Auto) 9.6 H (1-9) % Eos % (Auto) 4.2 (0-6) % Baso % (Auto) 1.1 (0-2) % Absolute Neuts (auto) 4.4 (1.5-7.7) 10^3/ul Absolute Lymphs (auto) 1.8 (1.0-4.8) 10^3/ul Absolute Monos (auto) 0.7 (0-0.8) 10^3/ul Absolute Eos (auto) 0.3 (0-0.6) 10^3/ul Absolute Basos (auto) 0.1 (0-0.2) 10^3/ul Absolute Nucleated RBC 0 10^3/ul Nucleated RBC % 0 Sodium 140 (133-145) mmol/L Potassium 3.3 L (3.5-5.0) mmol/L Chloride 103 (101-111) mmol/L Carbon Dioxide 31 (22-32) mmol/L Anion Gap 6 (2-11) mmol/L BUN 23 (6-24) mg/dL Creatinine 1.09 (0.67-1.17) mg/dL Est GFR ( Amer) 87.3 (>60) Est GFR (Non-Af Amer) 67.9 (>60) BUN/Creatinine Ratio 21.1 H (8-20) Glucose 88 (70-100) mg/dL Lactic Acid (0.5-2.0) mmol/L Calcium 9.6 (8.6-10.3) mg/dL Total Bilirubin 1.40 H (0.2-1.0) mg/dL AST 43 H (13-39) U/L ALT 21 (7-52) U/L Alkaline Phosphatase 73 (34-104) U/L Ammonia 32 (16-53) mol/L Troponin I 0.00 (<0.04) ng/mL Total Protein 7.6 (6.4-8.9) g/dL Albumin 4.2 (3.2-5.2) g/dL Globulin 3.4 (2-4) g/dL Albumin/Globulin Ratio 1.2 (1-3) Serum Alcohol < 10 (<10) mg/dL 10/07/17 Range/Units 21:08 WBC (3.5-10.8) 10^3/ul RBC (4.0-5.4) 10^6/ul Hgb (14.0-18.0) g/dl Hct (42-52) % MCV (80-94) fL MCH (27-31) pg MCHC (31-36) g/dl RDW (10.5-15) % Plt Count (150-450) 10^3/ul MPV (7.4-10.4) um3 Neut % (Auto) (38-83) % Lymph % (Auto) (25-47) % [place] % (Auto) (1-9) % Eos % (Auto) (0-6) % Baso % (Auto) (0-2) % Absolute Neuts (auto) (1.5-7.7) 10^3/ul Absolute Lymphs (auto) (1.0-4.8) 10^3/ul Absolute Monos (auto) (0-0.8) 10^3/ul Absolute Eos (auto) (0-0.6) 10^3/ul Absolute Basos (auto) (0-0.2) 10^3/ul Absolute Nucleated RBC 10^3/ul Nucleated RBC % Sodium (133-145) mmol/L Potassium (3.5-5.0) mmol/L Chloride (101-111) mmol/L Carbon Dioxide (22-32) mmol/L Anion Gap (2-11) mmol/L BUN (6-24) mg/dL Creatinine (0.67-1.17) mg/dL Est GFR ( Amer) (>60) Est GFR (Non-Af Amer) (>60) BUN/Creatinine Ratio (8-20) Glucose (70-100) mg/dL Lactic Acid 1.0 (0.5-2.0) mmol/L Calcium (8.6-10.3) mg/dL Total Bilirubin (0.2-1.0) mg/dL AST (13-39) U/L ALT (7-52) U/L Alkaline Phosphatase (34-104) U/L Ammonia (16-53) mol/L Troponin I (<0.04) ng/mL Total Protein (6.4-8.9) g/dL Albumin (3.2-5.2) g/dL Globulin (2-4) g/dL Albumin/Globulin Ratio (1-3) Serum Alcohol (<10) mg/dL Assess/Plan/Problems-Billing Assessment: - Patient Problems (1) Frequent falls Current Visit: Yes Status: Acute Code(s): R29.6 - REPEATED FALLS SNOMED Code(s): 404761226 Comment: PT could not detect any gait disorder or instability or balance difficulty. He did well with a walker. His L medial leg bruise is unlikely to be due to a fall. R arm ecchymosis is due to impact with a small area. Patient given walker to take home. (2) Opiate addiction Current Visit: Yes Status: Acute Code(s): F11.20 - OPIOID DEPENDENCE, UNCOMPLICATED SNOMED Code(s): 51175572 Comment: Continue suboxone. Fup Dr. Hou. (3) Asthma Current Visit: Yes Status: Acute Code(s): J45.909 - UNSPECIFIED ASTHMA, UNCOMPLICATED SNOMED Code(s): 086059019 Comment: Patient states he is at his baseline. No tx prescribed. (4) PTSD (post-traumatic stress disorder) Current Visit: No Status: Acute Code(s): F43.10 - POST-TRAUMATIC STRESS DISORDER, UNSPECIFIED SNOMED Code(s): 64514438 Comment: Continue home psychotropic meds. Status and Disposition: Discharge now. Pt will drive himself home. Fup Dr. Hewitt.
--- NOTE | 2017-10-08 12:50 | ECHO ---
Patient: HERO FRIEDMAN [facility] Rec#: [id number] : 1950 Date: 10/08/2017 Age: 67y Height: 167.64 cm / 66.0 in Weight: 64.41 kg / 142.0 lbs Sex: M BSA: 1.73 Room#: 402 Admit Date#: 10/08/2017 Type: Inpatient Referring: Joseph Nava MD Reading: Cindy Rivera MD [employer] Consultant: Georgia DodsonNEW [facility]EX[facility] Transthoracic Echocardiogram Indication: Syncope BP: 133/58 HR: 84 Rhythm: NSR Findings History: IV drug use, asthma Technical Comments: The study is technically limited due to poor acoustic windows. Left Ventricle: The left ventricular chamber size is normal. Mild concentric left ventricular hypertrophy is observed. The estimated ejection fraction is 50-55%. The assessment of diastolic function is non-diagnostic. Left Atrium: The left atrial chamber size is normal. Right Ventricle: The right ventricle wall thickness is mildly increased. The right ventricular cavity size is normal. The right ventricular global systolic function is hyperdynamic. Right Atrium: The right atrial cavity size is normal. There is evidence of an atrial septal aneurysm. Aortic Valve: The aortic valve structure is not well visualized. The aortic valve leaflets are mildly thickened. There is a trace of aortic regurgitation. There is no evidence of aortic stenosis. Mitral Valve: The mitral valve leaflets are mildly thickened. There is a trace of mitral regurgitation. There is no evidence of mitral stenosis. Tricuspid Valve: The tricuspid valve leaflets are normal. There is trace tricuspid regurgitation. Pulmonic Valve: The pulmonic valve structure is not well visualized. Pericardium: There is no significant pericardial effusion. Aorta: The aortic root appears normal. There is mild dilatation of the aortic arch. Pulmonary Artery: The main pulmonary artery is not well visualized. Venous: The inferior vena cava appears normal in size. There is a greater than 50% respiratory change in the inferior vena cava dimension. Summary: There was not any prior study for comparison. Conclusions The left ventricular chamber size is normal. Mild concentric left ventricular hypertrophy is observed. The estimated ejection fraction is 50-55%. The assessment of diastolic function is non-diagnostic. There is a trace of aortic regurgitation. There is a trace of mitral regurgitation. There is trace tricuspid regurgitation. There is mild dilatation of the aortic arch. Measurements Name Value Normal Range RVIDd (AP) 2D 3 cm (0.9 - 2.6) RVDdMajor (2D) 4.2 cm (2.2 - 4.4) RAd ISD 4CH 4.5 cm (3.4 - 4.9) RA (A4C)W 3.8 cm (2.9 - 4.6) IVSd (2D) 1.3 cm (0.6 - 1) LVPWd (2D) 1.1 cm (0.6 - 1) LVIDd (2D) 4.2 cm (3.6 - 5.4) LVIDs (2D) 2.8 cm - LV FS (2D) 32 % (25 - 45) Aortic Annulus 2.3 cm (1.4 - 2.6) Ao root diameter (2D) 3.5 cm (2.1 - 3.5) Ascending Ao 3 cm (2.1 - 3.4) Aortic arch 3.5 cm (1.8 - 3.4) LA dimension (AP) 2D 3.3 cm (2.3 - 3.8) LAd ISD 4CH 4.6 cm (2.9 - 5.3) LA ISD 4CH W 3.6 cm (2.5 - 4.5) Name Value Normal Range MV E-wave Vmax 0.4 m/sec - MV deceleration time 238 msec - MV A-wave Vmax 0.5 m/sec - MV E:A ratio 0.9 ratio - LV septal e' Vmax 0.04 m/sec - LV E:e' septal ratio 11 ratio - Name Value Normal Range LVOT Vmax 0.9 m/sec - LVOT peak gradient 3.2 mmHg - Name Value Normal Range RAP 8 mmHg - IVC diameter 1.3 cm -
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
[2017-10-09] MEDS ORDERED: Heparin VIAL(*) 5000 UNITS/ML VIAL (FIVE THOUSAND) SUBCUT SCH (06:00)
== END 2017-10-08 13:45 | disposition home or self-care (01) ==
LOC: ED 19:27 → MED 10-08 02:25
PROVIDERS: ADMIT Hospitalist; ATTEND Internal Medicine
DX: R26.9 Unspecified abnormalities of gait and mobility (principal); F11.21 Opioid dependence, in remission; G43.909 Migraine, unspecified, not intractable, without status migrainosus; F32.9 Major depressive disorder, single episode, unspecified; J45.909 Unspecified asthma, uncomplicated; I51.7 Cardiomegaly; F43.10 Post-traumatic stress disorder, unspecified; Z88.8 Allergy status to other drugs, medicaments and biological substances; Z79.899 Other long term (current) drug therapy; M79.605 Pain in left leg; M79.89 Other specified soft tissue disorders
CPT/HCPCS: 36415; 70450; 72110; 80053; 80307; 80320; 81003; 81015; 82140; 82565; 83605; 84484; 84520; 85025; 85610; 85730; 93005; 93306; 99285; A9270-GY; G0378; G0480; G8978-GP-CI; G8979-GP-CI

== ENCOUNTER → 2019-01-18 15:21 | Emergency (ER) | payer MEDICARE, MEDICAID ==
[~2019-01-18 15:21] MED LIST: DOXYcycline CAP(*) 100 MG PO ONE
--- NOTE | 2019-01-18 16:55 | ED ---
Skin Complaint - HPI Summary HPI Summary: 68 year old male presents with right arm abscess. He states that couple weeks ago he injected heroin into his right arm. He states that he does not believe it was heroin. States the 2 days later that he developed redness in the area. He states the redness spread initially and then it came to the head and he squeezed it and it popped. He states that he got a lot of pus out of the wound. He states been washing the area with soap and water and apply Neosporin and covering it. He states he came in today because his friend told him that he needs antibiotics. He has no pain. He denies any spreading redness. No fevers or chills. Is not diabetic. Doesn't currently have a primary. Has a history of a colostomy. - History of Current Complaint Chief Complaint: EDRashSkinAbscess Time Seen by Provider: 01/18/19 16:36 Stated Complaint: INFECTION ON RT ARM PER PT Pain Intensity: 1 - Additional Pertinent History Primary Care Physician: [id number] - Allergy/Home Medications Allergies/Adverse Reactions: Allergies Allergy/AdvReac Type Severity Reaction Status Date / Time prochlorperazine Allergy Anxiety Verified 01/18/19 15:27 [From Compazine] PMH/Surg Hx/FS Hx/Imm Hx Endocrine/Hematology History: Denies: Hx Anticoagulant Therapy, Hx Blood Disorders, Hx Blood Transfusions, Hx Bone Marrow Disease, Hx Diabetes, Hx Systemic Lupus Erythematosus, Hx Sickle Cell Disease, Hx Thyroid Disease, Hx Anemia, Hx Unexplained Bleeding, Other Endocrine/Hematological Disorders Cardiovascular History: Denies: Hx Congestive Heart Failure, Hx Hypertension Respiratory History: Reports: Hx Asthma, Hx Pneumonia, Hx Seasonal Allergies Denies: Hx Chronic Bronchitis, Hx Chronic Obstructive Pulmonary Disease (COPD ), Hx Cystic Fibrosis, Hx Lung Cancer, Hx Pleural Effusion, Hx Pulmonary Edema, Hx Pulmonary Embolism, Hx Sleep Apnea, Other Respiratory Problems/Disorders GI History: Reports: Hx Diverticulosis, Other GI Disorders - constipation, colostomy Denies: Hx Cirrhosis, Hx Crohn's Disease, Hx Gall Bladder Disease, Hx Gastroesophageal Reflux Disease, Hx Gastrointestinal Bleed, Hx Hiatal Hernia, Hx Irritable Bowel, Hx Jaundice, Hx Obstructive Bowel, Hx Ileostomy, Hx Pyloric Stenosis, Hx Ulcer History: Reports: Hx Kidney Infection - Acute kidney infection Denies: Hx Renal Disease Sensory History: Reports: Hx Contacts or Glasses Denies: Hx Hearing Aid Opthamlomology History: Reports: Hx Contacts or Glasses Neurological History: Reports: Hx Headaches, Hx Migraine, Other Neuro Impairments/Disorders - Asberger's syndrome Denies: Hx Dementia, Hx Developmental Delay, Hx Nerve Disease, Hx Seizures, Hx Spinal Cord Injury, Hx Transient Ischemic Attacks (TIA) Psychiatric History: Reports: Hx Anxiety, Hx Depression, Hx Substance Abuse Denies: Hx Attention Deficit Hyperactivity Disorder, Hx Eating Disorder, Hx Panic Disorder, Hx Post Traumatic Stress Disorder, Hx Community Mental Health Tx , Hx Schizophrenia, Hx Bipolar Disorder, Hx Suicide Attempt, Hx of Violent Episodes Against Others, Other Psychiatric Issues/Disorders - Surgical History Surgery Procedure, Year, and Place: MULTIPLE NOSE JOBS, [place] colostomy 2015, cytoplasty Hx Anesthesia Reactions: No - Immunization History Date of Tetanus Vaccine: UNKNOWN Date of Influenza Vaccine: 05/2017 Infectious Disease History: No Infectious Disease History: Reports: Hx Clostridium Difficile, History Other Infectious Disease - chicken pox Denies: Hx Hepatitis, Hx Human Immunodeficiency Virus (HIV), Hx of Known/ Suspected MRSA, Hx Shingles, Hx Tuberculosis, Hx Known/Suspected VRE, Hx Known/ Suspected VRSA, Traveled Outside the [place] in Last 30 Days - Family History Known Family History: Positive: Other - Hx of family depression - Social History Alcohol Use: None Substance Use Type: Reports: Heroin Substance Use Comment - Amount & Last Used: has not used in over 1 year Smoking Status (MU): Former Smoker Amount Used/How Often: pt has not used tobacco products in the last 30 days Review of Systems Negative: Fever Negative: Chest Pain Negative: Shortness Of Breath Positive: Other - left arm infection All Other Systems Reviewed And Are Negative: Yes Physical Exam Triage Information Reviewed: Yes Vital Signs On Initial Exam: Initial Vitals Temp Pulse Resp BP Pulse Ox 96.9 F 117 20 157/108 96 01/18/19 15:24 01/18/19 15:24 01/18/19 15:24 01/18/19 15:24 01/18/19 15:24 Vital Signs Reviewed: Yes Appearance: Positive: Well-Appearing Skin: Positive: Warm, Dry, Other - 2cm by 3cm by 1cm ulcer to right arm with minimial surrounding erythema Head/Face: Positive: Normal Head/Face Inspection Eyes: Positive: Normal, Conjunctiva Clear ENT: Positive: Pharynx normal Respiratory/Lung Sounds: Positive: Clear to Auscultation, Breath Sounds Present Cardiovascular: Positive: Normal, RRR Musculoskeletal: Positive: Normal, Strength/ROM Intact - right arm, Other - good pulses Neurological: Positive: Normal Psychiatric: Positive: Normal Diagnostics - Vital Signs Vital Signs Temp Pulse Resp BP Pulse Ox 01/18/19 15:24 96.9 F 117 20 157/108 96 - Laboratory Lab Statement: Any lab studies that have been ordered have been reviewed, and results considered in the medical decision making process. Course/Dx - Course Course Of Treatment: 68 year old male presents with right arm abscess. He states that couple weeks ago he injected heroin into his right arm. He states that he does not believe it was heroin. States the 2 days later that he developed redness in the area. He states the redness spread initially and then it came to the head and he squeezed it and it popped. He states that he got a lot of pus out of the wound. He states been washing the area with soap and water and apply Neosporin and covering it. He states he came in today because his friend told him that he needs antibiotics. He has no pain. He denies any spreading redness. No fevers or chills. Is not diabetic. Doesn't currently have a primary. Has a history of a colostomy. On exam has 3 cm ulcerative type lesion with minimal surrounding erythema. Obtained a wound culture of the wound. Has full range of motion of hand. Will place patient on doxycycline. Gave referral to wound clinic to follow-up. Told to return if develop spreading redness or fever. Patient understands agrees with plan. - Differential Diagnoses - Skin Complaint Differential Diagnoses: Abscess, Cellulitis, Contact Dermatitis - Diagnoses Provider Diagnoses: Abscess of right arm Discharge - Sign-Out/Discharge Documenting (check all that apply): Patient Departure Patient Received Moderate/Deep Sedation with Procedure: No - Discharge Plan Condition: Good Disposition: HOME Prescriptions: DOXYcycline CAP(*) [DOXYcycline 100MG CAP(*)] 100 mg PO BID #19 cap Patient Education Materials: Abscess (ED) Referrals: Chon Smith MD [Medical Doctor] - Additional Instructions: Take antibiotic twice a day for 10 days, first dose given in ED Apply warm compresses to area Take Tylenol for pain every 6 hours Follow up with wound clinic Return to ED if develop fever, area of redness spreads, or any new or worsening symptoms - Billing Disposition and Condition Condition: GOOD Disposition: Home
[2019-01-18 18:04] VITALS: BP 155/102
== END | disposition home or self-care (01) ==
LOC: ED 15:21
DX: L02.413 Cutaneous abscess of right upper limb (principal); J45.909 Unspecified asthma, uncomplicated; K57.90 Diverticulosis of intestine, part unspecified, without perforation or abscess without bleeding; F41.9 Anxiety disorder, unspecified; F32.9 Major depressive disorder, single episode, unspecified; F11.90 Opioid use, unspecified, uncomplicated; Z87.891 Personal history of nicotine dependence; Z88.8 Allergy status to other drugs, medicaments and biological substances
CPT/HCPCS: 87070; 87205; 99282; A9270-GY

== ENCOUNTER → 2019-02-27 17:18 | Emergency (ER) | payer MEDICARE, MEDICAID ==
[~2019-02-27 17:18] MED LIST changes: -DOXYcycline CAP(*) 100 MG PO ONE; +Sulfamethox/Trimethoprim DS 800/160* TAB PO ONE
--- NOTE | 2019-02-27 19:00 | ED ---
Skin Complaint - HPI Summary HPI Summary: Patient complains of redness, swelling, tenderness and skin change at site of IV heroin injection on dorsal surface of mid left forearm x 1 week. Denies purulent drainage, fever, N/V, loss of sensation or function distally, CP, SOB, back pain, cough, sore throat, abdominal pain, change in urine, change in BM.. History of IV drug abuse. - History of Current Complaint Chief Complaint: EDExtremityUpper Time Seen by Provider: 02/27/19 18:02 Stated Complaint: ABSCESS ON LEFT ARM PER PT Hx Obtained From: Patient Onset/Duration: Started Days Ago Skin Exposure Onset/Duration: Days Ago Timing: Constant Onset Severity: Mild Current Severity: Mild Pain Intensity: 3 Pain Scale Used: 0-10 Numeric Skin Location: Discrete Aggravating Symptom(s): Nothing Alleviating Symptom(s): Nothing Associated Signs & Symptoms: Negative - Additional Pertinent History Primary Care Physician: [id number] - Allergy/Home Medications Allergies/Adverse Reactions: Allergies Allergy/AdvReac Type Severity Reaction Status Date / Time prochlorperazine Allergy Anxiety Verified 02/27/19 17:28 [From Compazine] PMH/Surg Hx/FS Hx/Imm Hx Endocrine/Hematology History: Denies: Hx Anticoagulant Therapy, Hx Blood Disorders, Hx Blood Transfusions, Hx Bone Marrow Disease, Hx Diabetes, Hx Systemic Lupus Erythematosus, Hx Sickle Cell Disease, Hx Thyroid Disease, Hx Anemia, Hx Unexplained Bleeding, Other Endocrine/Hematological Disorders Cardiovascular History: Denies: Hx Congestive Heart Failure, Hx Hypertension Respiratory History: Reports: Hx Asthma, Hx Pneumonia, Hx Seasonal Allergies Denies: Hx Chronic Bronchitis, Hx Chronic Obstructive Pulmonary Disease (COPD ), Hx Cystic Fibrosis, Hx Lung Cancer, Hx Pleural Effusion, Hx Pulmonary Edema, Hx Pulmonary Embolism, Hx Sleep Apnea, Other Respiratory Problems/Disorders GI History: Reports: Hx Diverticulosis, Other GI Disorders - constipation, colostomy Denies: Hx Cirrhosis, Hx Crohn's Disease, Hx Gall Bladder Disease, Hx Gastroesophageal Reflux Disease, Hx Gastrointestinal Bleed, Hx Hiatal Hernia, Hx Irritable Bowel, Hx Jaundice, Hx Obstructive Bowel, Hx Ileostomy, Hx Pyloric Stenosis, Hx Ulcer History: Reports: Hx Kidney Infection - Acute kidney infection Denies: Hx Renal Disease Sensory History: Reports: Hx Contacts or Glasses Denies: Hx Hearing Aid Opthamlomology History: Reports: Hx Contacts or Glasses Neurological History: Reports: Hx Headaches, Hx Migraine, Other Neuro Impairments/Disorders - Asberger's syndrome Denies: Hx Dementia, Hx Developmental Delay, Hx Nerve Disease, Hx Seizures, Hx Spinal Cord Injury, Hx Transient Ischemic Attacks (TIA) Psychiatric History: Reports: Hx Anxiety, Hx Depression, Hx Substance Abuse Denies: Hx Attention Deficit Hyperactivity Disorder, Hx Eating Disorder, Hx Panic Disorder, Hx Post Traumatic Stress Disorder, Hx Community Mental Health Tx , Hx Schizophrenia, Hx Bipolar Disorder, Hx Suicide Attempt, Hx of Violent Episodes Against Others, Other Psychiatric Issues/Disorders - Surgical History Surgery Procedure, Year, and Place: MULTIPLE NOSE JOBS, sigmond colostomy 2015, cytoplasty Hx Anesthesia Reactions: No - Immunization History Date of Tetanus Vaccine: UNKNOWN Date of Influenza Vaccine: 05/2017 Immunizations Up to Date: Yes Infectious Disease History: No Infectious Disease History: Reports: Hx Clostridium Difficile, History Other Infectious Disease - chicken pox Denies: Hx Hepatitis, Hx Human Immunodeficiency Virus (HIV), Hx of Known/ Suspected MRSA, Hx Shingles, Hx Tuberculosis, Hx Known/Suspected VRE, Hx Known/ Suspected VRSA, Traveled Outside the [place] in Last 30 Days - Family History Known Family History: Positive: Other - Hx of family depression - Social History Alcohol Use: None Substance Use Type: Reports: Heroin Substance Use Comment - Amount & Last Used: has not used in over 1 year Smoking Status (MU): Former Smoker Amount Used/How Often: pt has not used tobacco products in the last 30 days Review of Systems Constitutional: Negative Eyes: Negative ENT: Negative Cardiovascular: Negative Respiratory: Negative Gastrointestinal: Negative Genitourinary: Negative Musculoskeletal: Negative Skin: Other Neurological: Negative Psychological: Normal All Other Systems Reviewed And Are Negative: Yes Physical Exam - Summary Physical Exam Summary: 5 cm x 5 cm abscess on dorsal surface of mid left forearm. Localized erythema, swelling. PMS intact distally. No evidence of purulent drainage. Triage Information Reviewed: Yes Vital Signs On Initial Exam: Initial Vitals Temp Pulse Resp BP Pulse Ox 97.5 F 109 17 127/77 92 02/27/19 17:25 02/27/19 17:25 02/27/19 17:25 02/27/19 17:25 02/27/19 17:25 Vital Signs Reviewed: Yes Appearance: Positive: Well-Appearing Skin: Positive: Warm Head/Face: Positive: Normal Head/Face Inspection Eyes: Positive: Normal Neck: Positive: Supple Respiratory/Lung Sounds: Positive: Clear to Auscultation Cardiovascular: Positive: Normal Abdomen Description: Positive: Nontender Musculoskeletal: Positive: Normal Neurological: Positive: Normal Psychiatric: Positive: Normal AVPU Assessment: Alert - Jenny Coma Scale Best Eye Response: 4 - Spontaneous Best Motor Response: 6 - Obeys Commands Best Verbal Response: 5 - Oriented Coma Scale Total: 15 Diagnostics - Vital Signs Vital Signs Temp Pulse Resp BP Pulse Ox 02/27/19 17:25 97.5 F 109 17 127/77 92 - Laboratory Lab Statement: Any lab studies that have been ordered have been reviewed, and results considered in the medical decision making process. Course/Dx - Course Course Of Treatment: Patient complains of redness, swelling, tenderness and skin change at site of IV heroin injection on dorsal surface of mid left forearm x 1 week. Denies purulent drainage, fever, N/V, loss of sensation or function distally, CP, SOB, back pain, cough, sore throat, abdominal pain, change in urine, change in BM.. History of IV drug abuse. Physical exam:5 cm x 5 cm abscess on dorsal surface of mid left forearm. Localized erythema, swelling. PMS intact distally. No evidence of purulent drainage. Vital signs within normal limits. I&D performed with no purulent drainage. Likely phlegmon. Patient started on Bactrim here in ED. Rx for same. Wound cultures pending. - Diagnoses Provider Diagnoses: Abscess, IV drug abuse Discharge - Sign-Out/Discharge Documenting (check all that apply): Patient Departure Patient Received Moderate/Deep Sedation with Procedure: No - Discharge Plan Condition: Stable Disposition: HOME Prescriptions: Sulfamethox/Trimethoprim DS* [Bactrim DS 800/160 TAB*] 1 tab PO BID 10 Days #20 tab Patient Education Materials: Abscess (ED), Narcotic Use Disorder (ED) Referrals: No Primary Care Phys,NOPCP [Primary Care Provider] - Additional Instructions: Take antibiotics as directed. Keep wound clean and dry and protected. Return to the ED for any new or worsening symptoms. - Billing Disposition and Condition Condition: STABLE Disposition: Home
[2019-02-27 19:18] VITALS: BP 124/78
--- NOTE | 2019-02-28 00:46 | PN ---
Progress Note - Progress Note Date of Service: 02/28/19 Note: Microbiology called this evening to say wound culture positive for MRSA and staph aureus. Patient was discharged with Rx for Bactrim. No further treatment needed.
--- NOTE | 2019-03-02 09:17 | ED ---
Progress - Progress Note Progress Note: Wound cx sensitivities confirm bactrim DS is effective - no change in tx Course/Dx - Course Course Of Treatment: Patient complains of redness, swelling, tenderness and skin change at site of IV heroin injection on dorsal surface of mid left forearm x 1 week. Denies purulent drainage, fever, N/V, loss of sensation or function distally, CP, SOB, back pain, cough, sore throat, abdominal pain, change in urine, change in BM.. History of IV drug abuse. Physical exam:5 cm x 5 cm abscess on dorsal surface of mid left forearm. Localized erythema, swelling. PMS intact distally. No evidence of purulent drainage. Vital signs within normal limits. I&D performed with no purulent drainage. Likely phlegmon. Patient started on Bactrim here in ED. Rx for same. Wound cultures pending. - Diagnoses Provider Diagnoses: Abscess, IV drug abuse Discharge - Sign-Out/Discharge Documenting (check all that apply): Post-Discharge Follow Up Patient Received Moderate/Deep Sedation with Procedure: No - Discharge Plan Condition: Stable Disposition: HOME Patient Education Materials: Abscess (ED), Narcotic Use Disorder (ED) Referrals: No Primary Care Phys,NOPCP [Primary Care Provider] - Additional Instructions: Take antibiotics as directed. Keep wound clean and dry and protected. Return to the ED for any new or worsening symptoms. - Billing Disposition and Condition Condition: STABLE Disposition: Home
== END | disposition home or self-care (01) ==
LOC: ED 17:18
DX: L02.414 Cutaneous abscess of left upper limb (principal); F11.10 Opioid abuse, uncomplicated; Z87.891 Personal history of nicotine dependence
CPT/HCPCS: 87070; 87077; 87184; 87186; 87205; 87640; 87641; 99283; A9270-GY

== ENCOUNTER 2019-03-01 14:20 | Emergency (ER) | payer MEDICARE, MEDICAID ==
--- NOTE | 2019-03-01 15:10 | ED ---
Skin Complaint - HPI Summary HPI Summary: Patient was seen here yesterday for I&D of abscess, states he's been taking his doxycycline but is causing nausea. Wants different antibiotic. Denies any other new symptoms - History of Current Complaint Chief Complaint: EDPrescriptionNeeded Time Seen by Provider: 03/01/19 14:56 Stated Complaint: NEEDS NEW ANTIBIOTIC PER PT Hx Obtained From: Patient Onset/Duration: Started Hours Ago Skin Exposure Onset/Duration: Hours Ago Timing: Constant Current Severity: None Pain Intensity: 0 Pain Scale Used: 0-10 Numeric Aggravating Symptom(s): Nothing Alleviating Symptom(s): Nothing Associated Signs & Symptoms: Negative - Additional Pertinent History Primary Care Physician: [id number] - Allergy/Home Medications Allergies/Adverse Reactions: Allergies Allergy/AdvReac Type Severity Reaction Status Date / Time prochlorperazine Allergy Anxiety Verified 03/01/19 14:29 [From Compazine] PMH/Surg Hx/FS Hx/Imm Hx Endocrine/Hematology History: Denies: Hx Anticoagulant Therapy, Hx Blood Disorders, Hx Blood Transfusions, Hx Bone Marrow Disease, Hx Diabetes, Hx Systemic Lupus Erythematosus, Hx Sickle Cell Disease, Hx Thyroid Disease, Hx Anemia, Hx Unexplained Bleeding, Other Endocrine/Hematological Disorders Cardiovascular History: Denies: Hx Congestive Heart Failure, Hx Hypertension Respiratory History: Reports: Hx Asthma, Hx Pneumonia, Hx Seasonal Allergies Denies: Hx Chronic Bronchitis, Hx Chronic Obstructive Pulmonary Disease (COPD ), Hx Cystic Fibrosis, Hx Lung Cancer, Hx Pleural Effusion, Hx Pulmonary Edema, Hx Pulmonary Embolism, Hx Sleep Apnea, Other Respiratory Problems/Disorders GI History: Reports: Hx Diverticulosis, Other GI Disorders - constipation, colostomy Denies: Hx Cirrhosis, Hx Crohn's Disease, Hx Gall Bladder Disease, Hx Gastroesophageal Reflux Disease, Hx Gastrointestinal Bleed, Hx Hiatal Hernia, Hx Irritable Bowel, Hx Jaundice, Hx Obstructive Bowel, Hx Ileostomy, Hx Pyloric Stenosis, Hx Ulcer History: Reports: Hx Kidney Infection - Acute kidney infection Denies: Hx Renal Disease Sensory History: Reports: Hx Contacts or Glasses Denies: Hx Hearing Aid Opthamlomology History: Reports: Hx Contacts or Glasses Neurological History: Reports: Hx Headaches, Hx Migraine, Other Neuro Impairments/Disorders - Asberger's syndrome Denies: Hx Dementia, Hx Developmental Delay, Hx Nerve Disease, Hx Seizures, Hx Spinal Cord Injury, Hx Transient Ischemic Attacks (TIA) Psychiatric History: Reports: Hx Anxiety, Hx Depression, Hx Substance Abuse Denies: Hx Attention Deficit Hyperactivity Disorder, Hx Eating Disorder, Hx Panic Disorder, Hx Post Traumatic Stress Disorder, Hx Community Mental Health Tx , Hx Schizophrenia, Hx Bipolar Disorder, Hx Suicide Attempt, Hx of Violent Episodes Against Others, Other Psychiatric Issues/Disorders - Surgical History Surgery Procedure, Year, and Place: MULTIPLE NOSE JOBS, sigmond colostomy 2015, cytoplasty Hx Anesthesia Reactions: No - Immunization History Date of Tetanus Vaccine: UNKNOWN Date of Influenza Vaccine: 05/2017 Infectious Disease History: No Infectious Disease History: Reports: Hx Clostridium Difficile, History Other Infectious Disease - chicken pox Denies: Hx Hepatitis, Hx Human Immunodeficiency Virus (HIV), Hx of Known/ Suspected MRSA, Hx Shingles, Hx Tuberculosis, Hx Known/Suspected VRE, Hx Known/ Suspected VRSA, Traveled Outside the [place] in Last 30 Days - Family History Known Family History: Positive: Other - Hx of family depression - Social History Alcohol Use: None Substance Use Type: Reports: Heroin Substance Use Comment - Amount & Last Used: has not used in over 1 year Smoking Status (MU): Former Smoker Amount Used/How Often: pt has not used tobacco products in the last 30 days Review of Systems Constitutional: Negative Eyes: Negative ENT: Negative Cardiovascular: Negative Respiratory: Negative Gastrointestinal: Negative Genitourinary: Negative Musculoskeletal: Negative Skin: Negative Neurological: Negative Psychological: Normal All Other Systems Reviewed And Are Negative: Yes Physical Exam - Summary Physical Exam Summary: Abscess that was I&D yesterday looks clean and dry today. Non-erythematous. Triage Information Reviewed: Yes Vital Signs On Initial Exam: Initial Vitals Temp Pulse Resp BP Pulse Ox 98.3 F 102 18 137/82 93 03/01/19 14:27 03/01/19 14:27 03/01/19 14:27 03/01/19 14:27 03/01/19 14:27 Vital Signs Reviewed: Yes Appearance: Positive: Well-Appearing Skin: Positive: Warm Head/Face: Positive: Normal Head/Face Inspection Eyes: Positive: Normal Neck: Positive: Supple Respiratory/Lung Sounds: Positive: Clear to Auscultation Cardiovascular: Positive: Normal Abdomen Description: Positive: Nontender Musculoskeletal: Positive: Normal Neurological: Positive: Normal Psychiatric: Positive: Normal AVPU Assessment: Alert - Jenny Coma Scale Best Eye Response: 4 - Spontaneous Best Motor Response: 6 - Obeys Commands Best Verbal Response: 5 - Oriented Coma Scale Total: 15 Diagnostics - Vital Signs Vital Signs Temp Pulse Resp BP Pulse Ox 03/01/19 14:27 98.3 F 102 18 137/82 93 - Laboratory Lab Statement: Any lab studies that have been ordered have been reviewed, and results considered in the medical decision making process. Course/Dx - Course Course Of Treatment: Patient was seen here yesterday for I&D of abscess, states he's been taking Bactrim but is causing nausea. Wants different antibiotic. Denies any other new symptoms. Physical exam:Abscess that was I&D yesterday looks clean and dry today. Non-erythematous. Vital signs within normal limits. Stopped Bactrim. New Rx for doxycycline. - Diagnoses Provider Diagnoses: Medication therapy changed Discharge - Sign-Out/Discharge Documenting (check all that apply): Patient Departure Patient Received Moderate/Deep Sedation with Procedure: No - Discharge Plan Condition: Stable Disposition: HOME Prescriptions: DOXYcycline CAP(*) [DOXYcycline 100MG CAP(*)] 100 mg PO BID 10 Days #20 cap Patient Education Materials: Abscess (ED) Referrals: No Primary Care Phys,NOPCP [Primary Care Provider] - Additional Instructions: Discontinue taking Bactrim. Take doxycycline instead. Follow-up with primary care. Return to the ED for any new or worsening symptoms. - Billing Disposition and Condition Condition: STABLE Disposition: Home
[2019-03-01 15:58] VITALS: BP 132/80
== END 2019-03-01 15:57 | disposition home or self-care (01) ==
LOC: ED 14:20
DX: R11.0 Nausea (principal); T36.95XA Adverse effect of unspecified systemic antibiotic, initial encounter; Z87.891 Personal history of nicotine dependence
CPT/HCPCS: 99282

== ENCOUNTER 2019-03-08 02:23 | Emergency (ER) | payer MEDICARE, MEDICAID ==
--- NOTE | 2019-03-08 02:52 | ED ---
Psychiatric Complaint - HPI Summary HPI Summary: This pt is a 69 y/o male [place] [facility] [place]/o SI and intentional overdose Klonopin today. Pt states he has SI thoughts and plan to go [place] and [place] himself. He notes he took a total of 8 mg of Klonopin between 20:00 yesterday and 02:00 today (1 hour [employer]). Pt states he vomited after taking them and he saw pills in his vomit. Pt reports he drove to the ED today. His medications include Excedrin, Klonopin. Pt has been admitted [place] [facility] [place] the past for mental health, last admission was on 2016. He does see a psychiatrist "from time to time." - History Of Current Complaint Chief Complaint: EDSuicidal Time Seen by Provider: 03/08/19 02:35 Hx Obtained From: Patient Onset/Duration: Lasting Hours Timing: Hours Severity Currently: Moderate Character: Depressed Aggravating Factor(s): Nothing Alleviating Factor(s): Nothing Related History: Positive For: Prior Psychiatric Issues Has Suicidal: Reports: Thoughts, With A Plan, Demonstrates Gesture Ingestion History: Type/Name Of Drug - Klonopin, Amount Ingested - 8 mg, Approximate Time Of Ingestion - between 20:00 yesterday and 0200 today (1 hour [employer]) - Allergies/Home Medications Allergies/Adverse Reactions: Allergies Allergy/AdvReac Type Severity Reaction Status Date / Time prochlorperazine Allergy Anxiety Verified 03/08/19 02:28 [From Compazine] PMH/Surg Hx/FS Hx/Imm Hx Endocrine/Hematology History: Denies: Hx Anticoagulant Therapy, Hx Blood Disorders, Hx Blood Transfusions, Hx Bone Marrow Disease, Hx Diabetes, Hx Systemic Lupus Erythematosus, Hx Sickle Cell Disease, Hx Thyroid Disease, Hx Anemia, Hx Unexplained Bleeding, Other Endocrine/Hematological Disorders Cardiovascular History: Denies: Hx Congestive Heart Failure, Hx Hypertension Respiratory History: Reports: Hx Asthma, Hx Pneumonia, Hx Seasonal Allergies Denies: Hx Chronic Bronchitis, Hx Chronic Obstructive Pulmonary Disease (COPD ), Hx Cystic Fibrosis, Hx Lung Cancer, Hx Pleural Effusion, Hx Pulmonary Edema, Hx Pulmonary Embolism, Hx Sleep Apnea, Other Respiratory Problems/Disorders GI History: Reports: Hx Diverticulosis, Other GI Disorders - constipation, colostomy Denies: Hx Cirrhosis, Hx Crohn's Disease, Hx Gall Bladder Disease, Hx Gastroesophageal Reflux Disease, Hx Gastrointestinal Bleed, Hx Hiatal Hernia, Hx Irritable Bowel, Hx Jaundice, Hx Obstructive Bowel, Hx Ileostomy, Hx Pyloric Stenosis, Hx Ulcer History: Reports: Hx Kidney Infection - Acute kidney infection Denies: Hx Renal Disease Sensory History: Reports: Hx Contacts or Glasses Denies: Hx Hearing Aid Opthamlomology History: Reports: Hx Contacts or Glasses Neurological History: Reports: Hx Headaches, Hx Migraine, Other Neuro Impairments/Disorders - Asberger's syndrome Denies: Hx Dementia, Hx Developmental Delay, Hx Nerve Disease, Hx Seizures, Hx Spinal Cord Injury, Hx Transient Ischemic Attacks (TIA) Psychiatric History: Reports: Hx Anxiety, Hx Depression, Hx Substance Abuse Denies: Hx Attention Deficit Hyperactivity Disorder, Hx Eating Disorder, Hx Panic Disorder, Hx Post Traumatic Stress Disorder, Hx Community Mental Health Tx , Hx Schizophrenia, Hx Bipolar Disorder, Hx Suicide Attempt, Hx of Violent Episodes Against Others, Other Psychiatric Issues/Disorders - Surgical History Surgery Procedure, Year, and Place: MULTIPLE NOSE JOBS, sigmond colostomy 2015, cytoplasty Hx Anesthesia Reactions: No - Immunization History Date of Tetanus Vaccine: UNKNOWN Date of Influenza Vaccine: 05/2017 Infectious Disease History: No Infectious Disease History: Reports: Hx Clostridium Difficile, History Other Infectious Disease - chicken pox Denies: Hx Hepatitis, Hx Human Immunodeficiency Virus (HIV), Hx of Known/ Suspected MRSA, Hx Shingles, Hx Tuberculosis, Hx Known/Suspected VRE, Hx Known/ Suspected VRSA, Traveled Outside the [place] in Last 30 Days - Family History Known Family History: Positive: Other - Hx of family depression - Social History Alcohol Use: None Substance Use Type: Reports: Heroin Substance Use Comment - Amount & Last Used: has not used in over 1 year Smoking Status (MU): Former Smoker Amount Used/How Often: pt has not used tobacco products in the last 30 days Review of Systems Negative: Fever, Chills Cardiovascular: Negative Respiratory: Negative Positive: Vomiting Psychological: Other - POS: SI thoughts and plan Positive: Depressed All Other Systems Reviewed And Are Negative: Yes Physical Exam - Summary Physical Exam Summary: VITAL SIGNS: Reviewed. GENERAL: Patient is a well-developed and nourished male who is lying comfortable in the stretcher. Patient is not in any acute respiratory distress. HEAD AND FACE: No signs of trauma. No ecchymosis, hematomas or skull depressions. No sinus tenderness. EYES: PERRLA, EOMI x 2, No injected conjunctiva, no nystagmus. EARS: Hearing grossly intact. Ear canals and tympanic membranes are within normal limits. MOUTH: Oropharynx within normal limits. NECK: Supple, trachea is midline, no adenopathy, no JVD, no carotid bruit, no c- spine tenderness, neck with full ROM. CHEST: Symmetric, no tenderness at palpation LUNGS: Clear to auscultation bilaterally. No wheezing or crackles. CVS: Regular rate and rhythm, S1 and S2 present, no murmurs or gallops appreciated. ABDOMEN: Soft, non-tender. No signs of distention. No rebound no guarding, and no masses palpated. Bowel sounds are normal. EXTREMITIES: FROM in all major joints, no edema, no cyanosis or clubbing. NEURO: Alert and oriented x 3. No acute neurological deficits. Speech is normal and follows commands. SKIN: Dry and warm. Left arm dressing for what looks like an abscess that was I& D a few days ago. Triage Information Reviewed: Yes Vital Signs On Initial Exam: Initial Vitals Temp Pulse Resp BP Pulse Ox 98.1 F 86 10 124/82 94 03/08/19 02:26 03/08/19 02:26 03/08/19 02:26 03/08/19 02:26 03/08/19 02:26 Vital Signs Reviewed: Yes Diagnostics - Vital Signs Vital Signs Temp Pulse Resp BP Pulse Ox 03/08/19 02:26 98.1 F 86 10 124/82 94 - Laboratory Result Diagrams: 03/08/19 02:56 03/08/19 02:56 Lab Statement: Any lab studies that have been ordered have been reviewed, and results considered in the medical decision making process. - EKG 03:13 Cardiac Rate: NL - at 75 bpm EKG Rhythm: Sinus Rhythm Summary of EKG Findings: Low voltage. Normal axis. Normal interval. No ischemic changes. Course/Dx - Course Assessment/Plan: Pt is a 69 y/o male who presents to the ED for SI and intentional overdose of Klonopin today. Pt states he has SI thoughts and plan to go [place] and [place] himself. He notes he took a total of 8 mg of Klonopin between 20:00 yesterday and 02:00 today (1 hour [employer]). Pt states he vomited after taking them and he saw pills in his vomit. Pt reports he drove to the ED. Toxicology positive for opiates and benzodiazepines. Poison control was contacted by the nurse. They recommend observing the patient for 6 hours after evaluation. Patient will need a mental health evaluation when medically cleared. Pt will be sober around 0830- 0900. Pt will be signed out to Dr. Rea, pending disposition, awaiting medical clearance and subsequent MHE. - Differential Dx/Clinical Impression Provider Diagnosis: Depression Discharge - Sign-Out/Discharge Documenting (check all that apply): Sign-Out Patient Signing out patient TO: Khang Rea - pending dispo, awaiting medical clearance and subsequent MHE Patient Received Moderate/Deep Sedation with Procedure: No - Discharge Plan Condition: Stable Referrals: No Primary Care Phys,NOPCP [Primary Care Provider] - - Attestation Statements Document Initiated by Scribe: Yes Documenting Scribe: Madison Levine Provider For Whom Scribe is Documenting (Include Credential): Maximino Bazan MD Scribe Attestation: IMadison, scribed for Maximino Bazan MD on 03/08/19 at 0627. Status of Scribe Document: Ready
[2019-03-08 03:04] LABS: ABS Basophils 0.1 10^3/ul (0-0.2); ABS Eosinophils 0.1 10^3/ul (0-0.6); ABS Lymphocytes 1.1 10^3/ul (1.0-4.8); ABS Monocytes 0.5 10^3/ul (0-0.8); ABS Neutrophils 4.5 10^3/ul (1.5-7.7); Eosinophil % 1.5 %; Hematocrit 36 % (42-52); Hemoglobin 11.9 g/dL (14.0-18.0); Lymphocyte % 17.2 %; Mean Corpuscular HGB Conc 33 g/dL (31-36); Mean Corpuscular Hemoglobin 28 pg (27-31); Mean Corpuscular Volume 85 fL (80-94); Mean Platelet Volume 6.6 fL (7.4-10.4); Platelet Count 252 10^3/uL (150-450); Red Cell Distribution Width 14 % (10-15); White Blood Count 6.3 10^3/uL (3.5-10.8)
[2019-03-08 03:26] LABS: ALT 14 U/L (7-52); AST 19 U/L (13-39); Albumin 3.7 g/dL (3.2-5.2); Albumin/Globulin Ratio 1.1 (1-3); Alkaline Phosphatase 75 U/L (34-104); Anion Gap 8 mmol/L (2-11); Blood Urea Nitrogen 21 mg/dL (6-24); CO2 Carbon Dioxide 26 mmol/L (22-32); Calcium 9.5 mg/dL (8.6-10.3); Chloride 103 mmol/L (101-111); EGFR African American 61.2 (>60); EGFR Non-African American 50.5 (>60); Globulin 3.3 g/dL (2-4); Glucose 111 mg/dL (70-100); Potassium 4.3 mmol/L (3.5-5.0); Sodium 137 mmol/L (135-145)
[2019-03-08 03:42] LABS: Acetaminophen < 15 mcg/mL; Alcohol < 10 mg/dL (<10); Salicylate < 2.50 mg/dL (<30)
[2019-03-08 03:58] LABS: TSH (Thyroid Stimulating Horm) 0.72 mcIU/mL (0.34-5.60)
[2019-03-08 04:21] LABS: Urine Appearance Clear; Urine Bilirubin Negative (Negative); Urine Blood Negative (Negative); Urine Color Yellow; Urine Glucose Negative (Negative); Urine Ketones Negative (Negative); Urine Nitrite Negative (Negative); Urine Protein Negative (Negative); Urine Specific Gravity 1.012 (1.010-1.030); Urine Urobilinogen Negative (Negative)
[2019-03-08 05:01] LABS: Urine Benzodiazepine Screen Presumptive Positive (None Detect); Urine Opiates Screen Presumptive Positive (None Detect)
--- NOTE | 2019-03-08 07:30 | ED ---
Progress - Progress Note Progress Note: The patient was a sign-out from Dr. Maximino Bazan MD, to Dr. Khang Rea MD, at change of shift at 0700 on 03/08/2019, pending medical clearance, MHE, and disposition. The patient is medically clear at 0804. At 0918, Anthony Ortega from [facility] services reports that Dr. Cannon, psychiatry, clears the patient for discharge with dx of mood disorder NOS and follow up with [facility] Medical staff. Patient is agreeable with this plan. Re-Evaluation - Re-Evaluation First Eval Re-Evaluation Time: 08:04 Comment: Patient is medically clear. Course/Dx - Course Course Of Treatment: The patient was a sign-out from Dr. Maximino Bazan MD, to Dr. Khang Rea MD, at change of shift at 0700 on 03/08/2019, pending medical clearance, MHE, and disposition. The patient is medically clear at 0804. At 0918 , Anthony Ortega from mental health services reports that Dr. Cannon, psychiatry, clears the patient for discharge with dx of mood disorder NOS and follow up with [facility] Medical staff. Patient is agreeable with this plan. - Diagnoses Provider Diagnoses: Unspecified episodic mood disorder - Provider Notifications Discussed Care Of Patient With: Anthony Oretga - mental health motor generator set operator Time Discussed With Above Provider: 09:18 Instructed by Provider To: Other - Anthony Ortega reports that Dr. Cannon, psychiatry, clears the patient for discharge with dx of mood disorder, NOS and follow up with [facility] Medical staff. Discharge - Sign-Out/Discharge Documenting (check all that apply): Patient Departure - Patient will be discharged home., Receiving Sign-Out Receiving patient FROM: Maximino Bazan - Patient is a sign-out at change of shift from Dr. Bazan pending medical clearance, MHE, and disposition. Patient Received Moderate/Deep Sedation with Procedure: No - Discharge Plan Condition: Stable Disposition: HOME Patient Education Materials: Mood Disorders (ED) Referrals: [facility],. [Z.BUSINESS, APPLICATION, OTHER] - 3 Days Additional Instructions: Follow up with [facility] Medical services in 2-3 days. RETURN TO THE EMERGENCY DEPARTMENT FOR ANY NEW OR WORSENING SYMPTOMS. - Billing Disposition and Condition Condition: STABLE Disposition: Home - Attestation Statements Document Initiated by Scribe: Yes Documenting Scribe: Hillary Bergman Provider For Whom Proibe is Documenting (Include Credential): Dr. Khang Rea MD Scribe Attestation: I, Hillary Bergman, scribed for Dr. Khang Rea MD on 03/09/19 at 0748. Scribe Documentation Reviewed: Yes Provider Attestation: The documentation as recorded by the Hillary rodrigez accurately reflects the service I personally performed and the decisions made by me, Dr. Khang Rea MD Status of Scribe Document: Viewed
[2019-03-08] MEDS ORDERED: DULoxetine DR CAP* 60 MG CAP.DR PO ONE (07:59)
[2019-03-08] MEDS ORDERED: Albuterol HFA INHALER* 8 gm MDI INH ONE (07:59)
[2019-03-08] MEDS ORDERED: DOXYcycline CAP(*) 100 MG PO ONE (07:59)
[2019-03-08] MEDS ORDERED: Buprenorp/Nalox 8-2 MG SL TAB PO ONE (07:59)
--- NOTE | 2019-03-08 08:04 | PN ---
ED Flex Patient Progress Note Date of Service: 03/08/19 Subjective: This is a 69 year-old M who is pending admission to [facility] / transfer to another psychiatric facility / discharge to home / or being observed secondary to suicidal ideation. Pt. examined in room 15 at 0800. He is resting comfortably. Offers no complaints. Inquires when he will see MH. Scabbed wound to left forearm. Objective: Vitals: Most recent vital signs documented below. General NAD, Alert and oriented x3. Laboratory: Current laboratory results documented below. Assessment: Depression. Plan: Pending MHE. Morning medication ordered. Vital Signs Temp Pulse Resp BP Pulse Ox 98.1 F 68 14 118/68 90 03/08/19 02:26 03/08/19 07:09 03/08/19 07:09 03/08/19 07:09 03/08/19 07:09 Lab Results - Entire Visit 03/08/19 03/08/19 03/08/19 04:13 04:13 02:56 WBC RBC Hgb Hct MCV MCH MCHC RDW Plt Count MPV Neut % (Auto) Lymph % (Auto) [place] % (Auto) Eos % (Auto) Baso % (Auto) Absolute Neuts (auto) Absolute Lymphs (auto) Absolute Monos (auto) Absolute Eos (auto) Absolute Basos (auto) Absolute Nucleated RBC Nucleated RBC % Sodium 137 Potassium 4.3 Chloride 103 Carbon Dioxide 26 Anion Gap 8 BUN 21 Creatinine 1.40 H Est GFR ( Amer) 61.2 Est GFR (Non-Af Amer) 50.5 BUN/Creatinine Ratio 15.0 Glucose 111 H Calcium 9.5 Total Bilirubin 0.50 AST 19 ALT 14 Alkaline Phosphatase 75 Total Protein 7.0 Albumin 3.7 Globulin 3.3 Albumin/Globulin Ratio 1.1 TSH 0.72 Urine Color Yellow Urine Appearance Clear Urine pH 6.0 Ur Specific [place] 1.012 Urine Protein Negative Urine Ketones Negative Urine Blood Negative Urine Nitrate Negative Urine Bilirubin Negative Urine Urobilinogen Negative Ur Leukocyte Esterase Negative Urine Glucose Negative Urine Ascorbic Acid * A Salicylates < 2.50 Urine Opiates Screen Presumptive positive A Acetaminophen < 15 Ur Barbiturates Screen None detected Ur Phencyclidine Scrn None detected Ur Amphetamines Screen None detected U Benzodiazepines Scrn Presumptive positive A Urine Cocaine Screen None detected U Cannabinoids Screen None detected Serum Alcohol < 10 03/08/19 02:56 WBC 6.3 RBC 4.20 Hgb 11.9 L Hct 36 L MCV 85 MCH 28 MCHC 33 RDW 14 Plt Count 252 MPV 6.6 L Neut % (Auto) 71.7 Lymph % (Auto) 17.2 [place] % (Auto) 8.3 Eos % (Auto) 1.5 Baso % (Auto) 1.3 Absolute Neuts (auto) 4.5 Absolute Lymphs (auto) 1.1 Absolute Monos (auto) 0.5 Absolute Eos (auto) 0.1 Absolute Basos (auto) 0.1 Absolute Nucleated RBC 0.0 Nucleated RBC % 0.0 Sodium Potassium Chloride Carbon Dioxide Anion Gap BUN Creatinine Est GFR ( Amer) Est GFR (Non-Af Amer) BUN/Creatinine Ratio Glucose Calcium Total Bilirubin AST ALT Alkaline Phosphatase Total Protein Albumin Globulin Albumin/Globulin Ratio TSH Urine Color Urine Appearance Urine pH Ur Specific [place] Urine Protein Urine Ketones Urine Blood Urine Nitrate Urine Bilirubin Urine Urobilinogen Ur Leukocyte Esterase Urine Glucose Urine Ascorbic Acid Salicylates Urine Opiates Screen Acetaminophen Ur Barbiturates Screen Ur Phencyclidine Scrn Ur Amphetamines Screen U Benzodiazepines Scrn Urine Cocaine Screen U Cannabinoids Screen Serum Alcohol
[2019-03-08 09:25] VITALS: BP 107/66
== END 2019-03-08 09:25 | disposition home or self-care (01) ==
LOC: ED 02:23
DX: F32.9 Major depressive disorder, single episode, unspecified (principal); F39 Unspecified mood [affective] disorder; Z87.891 Personal history of nicotine dependence
CPT/HCPCS: 36415; 80053; 80307; 80320; 80329; 81003; 84443; 85025; 93005; 99285; A9270-GY; G0480

== ENCOUNTER 2019-04-27 02:26 | Emergency (ER) | payer MEDICARE, MEDICAID ==
[2019-04-27] MEDS ORDERED: diPHENhydraMINE IV* 50 MG/ML 1 ml VIAL (BENADRYL) SLOW PUSH ONE (02:56)
[2019-04-27] MEDS ORDERED: Metoclopramide IV* 5 MG/ML 2 ML VIAL IV SLOW PU ONE (02:56)
[2019-04-27] MEDS ORDERED: NS 0.9% 1000 ML** 1,000 ML IV ONE (02:56)
[2019-04-27] MEDS ORDERED: Ketorolac INJ* 30 MG/ML 1 ML VIAL IV PUSH ONE (02:57)
--- NOTE | 2019-04-27 02:57 | ED ---
Headache - HPI Summary HPI Summary: This patient is a 69 year old male presenting to [facility] with a chief complaint of migraines. The patient reports light sensitivity. He states he had migraines since he was 20 years old. The patient states he took excedrin, 1 mg Klonopin, his regular dose of Cymbalta, and 8 mg of Suboxone. The patient has an ostomy bag. - History Of Current Complaint Stated Complaint: HEADACHE PER EMS Hx Obtained From: Patient Onset/Duration: Started days ago Associated Signs And Symptoms: Visual Changes - Allergies/Home Medications Allergies/Adverse Reactions: Allergies Allergy/AdvReac Type Severity Reaction Status Date / Time prochlorperazine Allergy Anxiety Verified 03/08/19 02:28 [From Compazine] PMH/Surg Hx/FS Hx/Imm Hx Endocrine/Hematology History: Denies: Hx Anticoagulant Therapy, Hx Blood Disorders, Hx Blood Transfusions, Hx Bone Marrow Disease, Hx Diabetes, Hx Systemic Lupus Erythematosus, Hx Sickle Cell Disease, Hx Thyroid Disease, Hx Anemia, Hx Unexplained Bleeding, Other Endocrine/Hematological Disorders Cardiovascular History: Denies: Hx Congestive Heart Failure, Hx Hypertension Respiratory History: Reports: Hx Asthma, Hx Pneumonia, Hx Seasonal Allergies Denies: Hx Chronic Bronchitis, Hx Chronic Obstructive Pulmonary Disease (COPD ), Hx Cystic Fibrosis, Hx Lung Cancer, Hx Pleural Effusion, Hx Pulmonary Edema, Hx Pulmonary Embolism, Hx Sleep Apnea, Other Respiratory Problems/Disorders GI History: Reports: Hx Diverticulosis, Other GI Disorders - constipation, colostomy Denies: Hx Cirrhosis, Hx Crohn's Disease, Hx Gall Bladder Disease, Hx Gastroesophageal Reflux Disease, Hx Gastrointestinal Bleed, Hx Hiatal Hernia, Hx Irritable Bowel, Hx Jaundice, Hx Obstructive Bowel, Hx Ileostomy, Hx Pyloric Stenosis, Hx Ulcer History: Reports: Hx Kidney Infection - Acute kidney infection Denies: Hx Renal Disease Sensory History: Reports: Hx Contacts or Glasses Denies: Hx Hearing Aid Opthamlomology History: Reports: Hx Contacts or Glasses Neurological History: Reports: Hx Headaches, Hx Migraine, Other Neuro Impairments/Disorders - Asberger's syndrome Denies: Hx Dementia, Hx Developmental Delay, Hx Nerve Disease, Hx Seizures, Hx Spinal Cord Injury, Hx Transient Ischemic Attacks (TIA) Psychiatric History: Reports: Hx Anxiety, Hx Depression, Hx Substance Abuse Denies: Hx Attention Deficit Hyperactivity Disorder, Hx Eating Disorder, Hx Panic Disorder, Hx Post Traumatic Stress Disorder, Hx Community Mental Health Tx , Hx Schizophrenia, Hx Bipolar Disorder, Hx Suicide Attempt, Hx of Violent Episodes Against Others, Other Psychiatric Issues/Disorders - Surgical History Surgery Procedure, Year, and Place: MULTIPLE NOSE JOBS, sigmond colostomy 2016, cytoplasty Hx Anesthesia Reactions: No - Immunization History Date of Tetanus Vaccine: UNKNOWN Date of Influenza Vaccine: 05/2017 Immunizations Up to Date: Yes Infectious Disease History: No Infectious Disease History: Reports: Hx Clostridium Difficile, History Other Infectious Disease - chicken pox Denies: Hx Hepatitis, Hx Human Immunodeficiency Virus (HIV), Hx of Known/ Suspected MRSA, Hx Shingles, Hx Tuberculosis, Hx Known/Suspected VRE, Hx Known/ Suspected VRSA, Traveled Outside the [place] in Last 30 Days - Family History Known Family History: Positive: Other - Hx of family depression - Social History Alcohol Use: None Substance Use Type: Reports: Heroin Substance Use Comment - Amount & Last Used: has not used in over 1 year Smoking Status (MU): Former Smoker Amount Used/How Often: pt has not used tobacco products in the last 30 days Review of Systems Positive: Photophobia Positive: Headache All Other Systems Reviewed And Are Negative: Yes Physical Exam - Summary Physical Exam Summary: VITAL SIGNS: Reviewed. GENERAL: Patient is a well-developed and nourished MALE who is lying comfortable in the stretcher. Patient is not in any acute respiratory distress. HEAD AND FACE: No signs of trauma. No ecchymosis, hematomas or skull depressions. No sinus tenderness. EYES: PERRLA, EOMI x 2, No injected conjunctiva, no nystagmus. EARS: Hearing grossly intact. Ear canals and tympanic membranes are within normal limits. MOUTH: Oropharynx within normal limits. NECK: Supple, trachea is midline, no adenopathy, no JVD, no carotid bruit, no c- spine tenderness, neck with full ROM. CHEST: Symmetric, no tenderness at palpation LUNGS: Clear to auscultation bilaterally. No wheezing or crackles. CVS: Regular rate and rhythm, S1 and S2 present, no murmurs or gallops appreciated. ABDOMEN: Soft, non-tender. No signs of distention. No rebound no guarding, and no masses palpated. Bowel sounds are normal. EXTREMITIES: FROM in all major joints, no edema, no cyanosis or clubbing. NEURO: Alert and oriented x 3. No acute neurological deficits. Speech is normal and follows commands. SKIN: Dry and warm Triage Information Reviewed: Yes Vital Signs On Initial Exam: Initial Vitals Temp Pulse Resp BP Pulse Ox 98.9 F 84 20 164/87 98 04/27/19 02:35 04/27/19 02:35 04/27/19 02:35 04/27/19 02:35 04/27/19 02:35 Vital Signs Reviewed: Yes Diagnostics - Vital Signs Vital Signs Temp Pulse Resp BP Pulse Ox 04/27/19 02:35 98.9 F 84 20 164/87 98 - Laboratory Lab Statement: Any lab studies that have been ordered have been reviewed, and results considered in the medical decision making process. Headache Course/Dx - Course Course Of Treatment: This patient is a 69 year old male presenting to [facility] with a chief complaint of migraines. The patient reports light sensitivity. The patient was administered medication to treat his migraine. The patient is feeling better. A plan for discharge was discussed with the patient and he was agreeable with this plan. - Diagnoses Provider Diagnoses: Migraines Discharge - Sign-Out/Discharge Documenting (check all that apply): Patient Departure - Discharge Patient Received Moderate/Deep Sedation with Procedure: No - Discharge Plan Condition: Stable Disposition: HOME Patient Education Materials: Migraine Headache (ED) Referrals: No Primary Care Phys,NOPCP [Primary Care Provider] - Additional Instructions: Return to ED with any new or worsening symptoms. - Attestation Statements Document Initiated by Scribe: Yes Documenting Scribe: Stanislav Godoy Provider For Whom Scribe is Documenting (Include Credential): Maximino Bazan MD Scribe Attestation: Stanislav Jennings scribed for Maximino Bazan MD on 04/27/19 at 0621. Status of Scribe Document: Ready
[2019-04-27] MEDS ORDERED: Pramipexole TAB* 0.125 MG PO ONE (05:00)
[2019-04-27 06:34] VITALS: BP 148/87
== END 2019-04-27 06:33 | disposition home or self-care (01) ==
LOC: ED 02:26
DX: G43.909 Migraine, unspecified, not intractable, without status migrainosus (principal); J45.909 Unspecified asthma, uncomplicated; F41.9 Anxiety disorder, unspecified; F32.9 Major depressive disorder, single episode, unspecified; Z87.891 Personal history of nicotine dependence; Z79.899 Other long term (current) drug therapy; Z88.8 Allergy status to other drugs, medicaments and biological substances
CPT/HCPCS: 96361; 96374; 96375; 99282; 99283; A9270-GY; J1200; J1885; J2765

== ENCOUNTER 2019-04-27 21:44 | Emergency (ER) | payer MEDICARE, MEDICAID ==
--- NOTE | 2019-04-27 22:07 | ED ---
Headache - HPI Summary HPI Summary: This patient is a 69 year old male presenting to [facility] with a chief complaint of migraines. The patient was here yesterday with the same complaint. He states it almost resolved completely upon discharge in the morning, and then he slept for one hour and his migraine was back when he woke up. He states n/v X 1 and light sensitivity. Location of migraine is across the forehead, same as last night. - History Of Current Complaint Chief Complaint: EDHeadache Stated Complaint: HEADACHE PER EMS Time Seen by Provider: 04/27/19 21:52 Hx Obtained From: Patient Onset/Duration: Started hours ago Character: Migraine Location of Headache: Frontal - Allergies/Home Medications Allergies/Adverse Reactions: Allergies Allergy/AdvReac Type Severity Reaction Status Date / Time prochlorperazine Allergy Anxiety Verified 04/28/19 07:55 [From Compazine] Home Medications: Home Medications ZOLMitriptan [Zomig] 2.5 mg PO TID PRN 04/27/19 [History Confirmed 04/27/19] PMH/Surg Hx/FS Hx/Imm Hx Endocrine/Hematology History: Denies: Hx Anticoagulant Therapy, Hx Blood Disorders, Hx Blood Transfusions, Hx Bone Marrow Disease, Hx Diabetes, Hx Systemic Lupus Erythematosus, Hx Sickle Cell Disease, Hx Thyroid Disease, Hx Anemia, Hx Unexplained Bleeding, Other Endocrine/Hematological Disorders Cardiovascular History: Denies: Hx Congestive Heart Failure, Hx Hypertension Respiratory History: Reports: Hx Asthma, Hx Pneumonia, Hx Seasonal Allergies Denies: Hx Chronic Bronchitis, Hx Chronic Obstructive Pulmonary Disease (COPD ), Hx Cystic Fibrosis, Hx Lung Cancer, Hx Pleural Effusion, Hx Pulmonary Edema, Hx Pulmonary Embolism, Hx Sleep Apnea, Other Respiratory Problems/Disorders GI History: Reports: Hx Diverticulosis, Other GI Disorders - constipation, colostomy Denies: Hx Cirrhosis, Hx Crohn's Disease, Hx Gall Bladder Disease, Hx Gastroesophageal Reflux Disease, Hx Gastrointestinal Bleed, Hx Hiatal Hernia, Hx Irritable Bowel, Hx Jaundice, Hx Obstructive Bowel, Hx Ileostomy, Hx Pyloric Stenosis, Hx Ulcer History: Reports: Hx Kidney Infection - Acute kidney infection Denies: Hx Renal Disease Sensory History: Reports: Hx Contacts or Glasses Denies: Hx Hearing Aid Opthamlomology History: Reports: Hx Contacts or Glasses Neurological History: Reports: Hx Headaches, Hx Migraine, Other Neuro Impairments/Disorders - Asberger's syndrome Denies: Hx Dementia, Hx Developmental Delay, Hx Nerve Disease, Hx Seizures, Hx Spinal Cord Injury, Hx Transient Ischemic Attacks (TIA) Psychiatric History: Reports: Hx Anxiety, Hx Depression, Hx Substance Abuse Denies: Hx Attention Deficit Hyperactivity Disorder, Hx Eating Disorder, Hx Panic Disorder, Hx Post Traumatic Stress Disorder, Hx Community Mental Health Tx , Hx Schizophrenia, Hx Bipolar Disorder, Hx Suicide Attempt, Hx of Violent Episodes Against Others, Other Psychiatric Issues/Disorders - Surgical History Surgery Procedure, Year, and Place: MULTIPLE NOSE JOBS, sigmond colostomy 2016, cytoplasty Hx Anesthesia Reactions: No - Immunization History Date of Tetanus Vaccine: UNKNOWN Date of Influenza Vaccine: 05/2017 Infectious Disease History: No Infectious Disease History: Reports: Hx Clostridium Difficile, History Other Infectious Disease - chicken pox Denies: Hx Hepatitis, Hx Human Immunodeficiency Virus (HIV), Hx of Known/ Suspected MRSA, Hx Shingles, Hx Tuberculosis, Hx Known/Suspected VRE, Hx Known/ Suspected VRSA, Traveled Outside the [place] in Last 30 Days - Family History Known Family History: Positive: Other - Hx of family depression - Social History Alcohol Use: None Substance Use Type: Reports: Other Substance Use Comment - 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 GENERAL: Patient is a well-developed and nourished MALE who is lying comfortable in the stretcher. Patient is not in any acute respiratory distress. HEAD AND FACE: No signs of trauma. No ecchymosis, hematomas or skull depressions. No sinus tenderness. EYES: PERRLA, EOMI x 2, No injected conjunctiva, no nystagmus. EARS: Hearing grossly intact. Ear canals and tympanic membranes are within normal limits. MOUTH: Oropharynx within normal limits. NECK: Supple, trachea is midline, no adenopathy, no JVD, no carotid bruit, no c- spine tenderness, neck with full ROM CHEST: Symmetric, no tenderness at palpation LUNGS: Clear to auscultation bilaterally. No wheezing or crackles. CVS: Regular rate and rhythm, S1 and S2 present, no murmurs or gallops appreciated. ABDOMEN: Soft, non-tender. No signs of distention. No rebound no guarding, and no masses palpated. Bowel sounds are normal. EXTREMITIES: FROM in all major joints, no edema, no cyanosis or clubbing. NEURO: Alert and oriented x 3. No acute neurological deficits. Speech is normal and follows commands. SKIN: Dry and warm Triage Information Reviewed: Yes Vital Signs On Initial Exam: Initial Vitals Temp Pulse Resp BP Pulse Ox 98.8 F 79 18 152/90 96 04/27/19 21:48 04/27/19 21:48 04/27/19 21:48 04/27/19 21:48 04/27/19 21:48 Vital Signs Reviewed: Yes Diagnostics - Vital Signs Vital Signs Temp Pulse Resp BP Pulse Ox 04/27/19 21:48 98.8 F 79 18 152/90 96 - Laboratory Lab Statement: Any lab studies that have been ordered have been reviewed, and results considered in the medical decision making process. Headache Course/Dx - Course Course Of Treatment: This patient is a 69 year old male presenting to [facility] with a chief complaint of migraines. The patient was given medications to treat the symptoms and for restless legs and the patient states he feels better. A plan for discharge was discussed with the patietn and he was agreeable with this plan. - Diagnoses Provider Diagnoses: Migraine, Restless legs Discharge - Sign-Out/Discharge Documenting (check all that apply): Patient Departure - Discharge Patient Received Moderate/Deep Sedation with Procedure: No - Discharge Plan Condition: Stable Disposition: HOME Prescriptions: Pramipexole TAB* [Mirapex TAB*] 0.125 mg PO BEDTIME #30 tab Patient Education Materials: Migraine Headache (ED), Restless Legs Syndrome (ED ) Referrals: No Primary Care Phys,NOPCP [Primary Care Provider] - Additional Instructions: Return to ED with any new or worsening symptoms. - Billing Disposition and Condition Condition: STABLE Disposition: Home - Attestation Statements Document Initiated by Scribe: Yes Documenting Scribe: Stanislav Godoy Provider For Whom Scribe is Documenting (Include Credential): Maximino Bazan MD Scribe Attestation: Stanislav Jennings, marizolibed for Maximino Bazan MD on 04/29/19 at 0356. Scribe Documentation Reviewed: Yes Provider Attestation: The documentation as recorded by the marizolibe, Stanislav Godoy accurately reflects the service I personally performed and the decisions made by me, Maximino Bazan MD Status of Van Document: Viewed
[2019-04-27] MEDS ORDERED: Metoclopramide IV* 5 MG/ML 2 ML VIAL IV SLOW PU ONE (22:10)
[2019-04-27] MEDS ORDERED: NS 0.9% 1000 ML** 1,000 ML IV ONE (22:10)
[2019-04-27] MEDS ORDERED: Ketorolac INJ* 30 MG/ML 1 ML VIAL IV PUSH ONE (22:10)
[2019-04-27] MEDS ORDERED: diPHENhydraMINE IV* 50 MG/ML 1 ml VIAL (BENADRYL) SLOW PUSH ONE (22:10)
[2019-04-27] MEDS ORDERED: Pramipexole TAB* 0.125 MG PO ONE (23:24)
[2019-04-28 00:36] VITALS: BP 155/90
== END 2019-04-28 00:35 | disposition home or self-care (01) ==
LOC: ED 21:44
DX: G43.909 Migraine, unspecified, not intractable, without status migrainosus (principal); G25.81 Restless legs syndrome; R11.2 Nausea with vomiting, unspecified; F84.5 Asperger's syndrome; Z93.3 Colostomy status; Z88.8 Allergy status to other drugs, medicaments and biological substances; Z87.891 Personal history of nicotine dependence
CPT/HCPCS: 96361; 96374; 96375; 99282; A9270-GY; J1200; J1885; J2765

== ENCOUNTER 2019-04-28 07:50 | Emergency (ER) | payer MEDICARE, MEDICAID ==
[2019-04-28] MEDS ORDERED: Ondansetron INJ* 2 MG/ML VIAL IV ONE (08:31)
[2019-04-28] MEDS ORDERED: NS 0.9% 1000 ML** 1,000 ML IV ONE (08:31)
--- NOTE | 2019-04-28 08:32 | ED ---
Headache - HPI Summary HPI Summary: Patient is a 69-year-old male who presents emergency department for ongoing headache times several days. Patient states is a history of migraines but headache today is worse than usual. Patient states headache is usually confined to one area but today is diffuse mostly located to the top of his head. Pt. notes photophobia without vision change. Assoiciated sx of N/V. Pt. states his emesis looks like bile and sometimes red. Pt. denies fever, chills, neck pain, CP, SOB. Pt. seen in the ER twice yesterday for h/a. Pt. states he was feeling better but h/a returned and is worse. No current modifying factors. - History Of Current Complaint Chief Complaint: EDGIBleed Stated Complaint: BLOOD IN VOMIT AND HEADACHE PER PT Time Seen by Provider: 04/28/19 08:09 Hx Obtained From: Patient - Allergies/Home Medications Allergies/Adverse Reactions: Allergies Allergy/AdvReac Type Severity Reaction Status Date / Time prochlorperazine Allergy Anxiety Verified 04/28/19 07:55 [From Compazine] PMH/Surg Hx/FS Hx/Imm Hx Previously Healthy: Yes Endocrine/Hematology History: Denies: Hx Anticoagulant Therapy, Hx Blood Disorders, Hx Blood Transfusions, Hx Bone Marrow Disease, Hx Diabetes, Hx Systemic Lupus Erythematosus, Hx Sickle Cell Disease, Hx Thyroid Disease, Hx Anemia, Hx Unexplained Bleeding, Other Endocrine/Hematological Disorders Cardiovascular History: Denies: Hx Congestive Heart Failure, Hx Hypertension Respiratory History: Reports: Hx Asthma, Hx Pneumonia, Hx Seasonal Allergies Denies: Hx Chronic Bronchitis, Hx Chronic Obstructive Pulmonary Disease (COPD ), Hx Cystic Fibrosis, Hx Lung Cancer, Hx Pleural Effusion, Hx Pulmonary Edema, Hx Pulmonary Embolism, Hx Sleep Apnea, Other Respiratory Problems/Disorders GI History: Reports: Hx Diverticulosis, Other GI Disorders - constipation, colostomy Denies: Hx Cirrhosis, Hx Crohn's Disease, Hx Gall Bladder Disease, Hx Gastroesophageal Reflux Disease, Hx Gastrointestinal Bleed, Hx Hiatal Hernia, Hx Irritable Bowel, Hx Jaundice, Hx Obstructive Bowel, Hx Ileostomy, Hx Pyloric Stenosis, Hx Ulcer History: Reports: Hx Kidney Infection - Acute kidney infection Denies: Hx Renal Disease Sensory History: Reports: Hx Contacts or Glasses Denies: Hx Hearing Aid Opthamlomology History: Reports: Hx Contacts or Glasses Neurological History: Reports: Hx Headaches, Hx Migraine, Other Neuro Impairments/Disorders - Asberger's syndrome Denies: Hx Dementia, Hx Developmental Delay, Hx Nerve Disease, Hx Seizures, Hx Spinal Cord Injury, Hx Transient Ischemic Attacks (TIA) Psychiatric History: Reports: Hx Anxiety, Hx Depression, Hx Substance Abuse Denies: Hx Attention Deficit Hyperactivity Disorder, Hx Eating Disorder, Hx Panic Disorder, Hx Post Traumatic Stress Disorder, Hx Community Mental Health Tx , Hx Schizophrenia, Hx Bipolar Disorder, Hx Suicide Attempt, Hx of Violent Episodes Against Others, Other Psychiatric Issues/Disorders - Surgical History Surgery Procedure, Year, and Place: MULTIPLE NOSE JOBS, sigmond colostomy 2016, cytoplasty Hx Anesthesia Reactions: No - Immunization History Date of Tetanus Vaccine: UNKNOWN Date of Influenza Vaccine: 05/2017 Infectious Disease History: No Infectious Disease History: Reports: Hx Clostridium Difficile, History Other Infectious Disease - chicken pox Denies: Hx Hepatitis, Hx Human Immunodeficiency Virus (HIV), Hx of Known/ Suspected MRSA, Hx Shingles, Hx Tuberculosis, Hx Known/Suspected VRE, Hx Known/ Suspected VRSA, Traveled Outside the [place] in Last 30 Days - Family History Known Family History: Positive: Other - Hx of family depression, Non- Contributory - Social History Occupation: Unemployed Lives: With Family Alcohol Use: None Substance Use Type: Reports: None Substance Use Comment - 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 Negative: Blurred Vision, Diplopia, Drainage, Erythema ENT: Negative Cardiovascular: Negative Respiratory: Negative Positive: Vomiting, Nausea. Negative: Abdominal Pain, Diarrhea Genitourinary: Negative Musculoskeletal: Negative Skin: Negative Positive: Headache. Negative: Weakness, Paresthesia, Numbness, Syncope, Slurred Speech All Other Systems Reviewed And Are Negative: Yes Physical Exam Triage Information Reviewed: Yes Vital Signs On Initial Exam: Initial Vitals Temp Pulse Resp BP Pulse Ox 98.6 F 77 16 160/102 98 04/28/19 07:52 04/28/19 07:52 04/28/19 07:52 04/28/19 07:52 04/28/19 07:52 Vital Signs Reviewed: Yes Appearance: Positive: Well-Appearing - Patient lying in a dark room with eyes closed. Skin: Positive: Warm, Dry Head/Face: Positive: Normal Head/Face Inspection Eyes: Positive: Normal, EOMI, DOMINIQUE Neck: Positive: Supple, Nontender. Negative: Nuchal Rigidity Respiratory/Lung Sounds: Positive: Clear to Auscultation, Breath Sounds Present Cardiovascular: Positive: Normal, RRR Musculoskeletal: Positive: Normal, Strength/ROM Intact Neurological: Positive: Normal, Alert, Oriented to Person Place, Time, CN Intact II-III, Normal Gait, Speech Normal. Negative: Slurred Speech Psychiatric: Positive: Affect/Mood Appropriate Diagnostics - Vital Signs Vital Signs Temp Pulse Resp BP Pulse Ox 04/28/19 07:52 98.6 F 77 16 160/102 98 - Laboratory Result Diagrams: 04/28/19 09:21 04/28/19 09:20 Lab Statement: Any lab studies that have been ordered have been reviewed, and results considered in the medical decision making process. Headache Course/Dx - Course Course Of Treatment: Patient presenting with change or worsening headache. He has no neurological deficits. Vital signs stable. Afebrile. Given worsening change in headache we'll obtain CT brain to rule out bleed. Basic labs ordered. Patient started IV fluids and Zofran. CT scan brain is negative for acute findings, reading per radiology. Patient was given GI cocktail of Benadryl, Toradol and Decadron. Labs show mild chronic anemia. Normal CRP. Normal white blood cell count. Sedimentation rate is mildly elevated at 32. Patient states pain is located top of his head and has no temporal artery tenderness or hardening. Patient denies any visual disturbances. Do not suspect giant cell arteritis. On reexamination patient is feeling much better. We'll discharge him home to follow up with his family doctor and neurology. We' ll return the ER if symptoms change or worsen. Patient understands and agrees with plan. - Diagnoses Differential Diagnosis/HQI/PQRI: Meningitis, Migraine, Subarachnoid Hemorrhage, Temporal Arteritis, Tension Headache, Viral Syndrome Provider Diagnoses: Cephalgia Discharge - Sign-Out/Discharge Documenting (check all that apply): Patient Departure Patient Received Moderate/Deep Sedation with Procedure: No - Discharge Plan Condition: Improved Disposition: HOME Patient Education Materials: Acute Headache (ED) Referrals: [facility] [Outside] Additional Instructions: Call the [facility] Monday to schedule an appointment as soon as possible Continue home medications as directed Increase fluids and rest Return to ER if symptoms change or worsen - Billing Disposition and Condition Condition: IMPROVED Disposition: Home
[2019-04-28 09:25] LABS: ABS Lymphocytes 0.7 10^3/ul (1.0-4.8); ABS Monocytes 0.4 10^3/ul (0-0.8); ABS Neutrophils 6.4 10^3/ul (1.5-7.7); Eosinophil % 0.1 %; Hematocrit 39 % (42-52); Hemoglobin 12.9 g/dL (14.0-18.0); Lymphocyte % 8.8 %; Mean Corpuscular HGB Conc 33 g/dL (31-36); Mean Corpuscular Hemoglobin 28 pg (27-31); Mean Corpuscular Volume 86 fL (80-94); Mean Platelet Volume 7.1 fL (7.4-10.4); Platelet Count 233 10^3/uL (150-450); Red Blood Count 4.56 10^6 /uL (4.18-5.48); Red Cell Distribution Width 15 % (10-15); White Blood Count 7.5 10^3/uL (3.5-10.8)
[2019-04-28 09:42] LABS: Albumin/Globulin Ratio 1.2 (1-3); BUN/Creatinine Ratio 17.2 (8-20); C Reactive Protein 3.33 mg/L (<8.01); Calcium 9.3 mg/dL (8.6-10.3); EGFR African American 98.1 (>60); Globulin 3.3 g/dL (2-4); Potassium 3.8 mmol/L (3.5-5.0); Total Bilirubin 1.1 mg/dL (0.2-1.0); Total Protein 7.3 g/dL (6.4-8.9)
[2019-04-28] MEDS ORDERED: Ketorolac INJ* 30 MG/ML 1 ML VIAL IV PUSH ONE (10:24)
[2019-04-28] MEDS ORDERED: diPHENhydraMINE PO* 50 MG PO ONE (10:24)
[2019-04-28] MEDS ORDERED: Dexamethasone IV* 4 MG/ML 5 ML VIAL (20 MG) IVPB ONE (10:25)
[2019-04-28 10:31] LABS: Urine Appearance Clear; Urine Bilirubin Negative (Negative); Urine Blood Negative (Negative); Urine Color Yellow; Urine Glucose Negative (Negative); Urine Ketones Trace (Negative); Urine Nitrite Negative (Negative); Urine Protein Negative (Negative); Urine Specific Gravity 1.011 (1.010-1.030); Urine Urobilinogen Negative (Negative)
[2019-04-28 10:34] LABS: Erythrocyte Sed Rate 32 mm/Hr (0-19)
[2019-04-28 10:43] VITALS: BP 161/74
== END 2019-04-28 11:45 | disposition home or self-care (01) ==
LOC: ED 07:50
DX: R51 Headache (principal); H53.149 Visual discomfort, unspecified; R11.2 Nausea with vomiting, unspecified; J45.909 Unspecified asthma, uncomplicated; Z88.8 Allergy status to other drugs, medicaments and biological substances; Z93.3 Colostomy status; Z87.891 Personal history of nicotine dependence
CPT/HCPCS: 36415; 70450; 80053; 81003; 85025; 85652; 86140; 96361; 96374; 96375; 99284; A9270-GY; J1100; J1885; J2405

== ENCOUNTER 2019-08-11 19:46 | Emergency (ER) | payer MEDICARE, MEDICAID ==
--- NOTE | 2019-08-11 19:54 | ED ---
Headache - HPI Summary HPI Summary: The patient is a 69 y/o M presenting to [facility] with a chief complaint of a migraine headache onset three days ago with gradual worsening. He reports that he initially woke up with the headache that continues to worsen, but he has been unable to alleviate it. He endorses photophobia, nausea and vomiting with inability to keep fluids and solids down for the last two days, as well as fatigue secondary to the symptoms. Currently, the aching pain is rated 6/10 in severity. He was previously been here for similar episodes with noted relief of the pain with fluids, Zofran, Toradol, Decadron, and Benadryl in his last visit on 05/12/19. He is unable to recall if Prednisone has helped in the past. PMHx: migraines, asthma, anxiety, depression, colostomy, opioid dependence. Former smoker, no EtOH, no current substance use but on Methadone. Medications reviewed. Allergies noted. - History Of Current Complaint Chief Complaint: EDHeadache Stated Complaint: HEADACHE, VOMITING Time Seen by Provider: 08/11/19 19:52 Hx Obtained From: Patient Onset/Duration: Sudden Onset, Started days ago - three, Still Present Initially Headache Was: Mild Currently Pain Is: Current Pain Scale(0-10)= - 6 Timing: Days Character: Migraine Location of Headache: Diffuse Aggravating Factor: Nothing Allevating Factors: Nothing Associated Signs And Symptoms: Nausea, Vomiting, Other (Noted In Comments) - photophobia, fatigue - Allergies/Home Medications Allergies/Adverse Reactions: Allergies Allergy/AdvReac Type Severity Reaction Status Date / Time prochlorperazine Allergy Anxiety Verified 08/11/19 19:48 [From Compazine] PMH/Surg Hx/FS Hx/Imm Hx Endocrine/Hematology History: Denies: Hx Anticoagulant Therapy, Hx Blood Disorders, Hx Blood Transfusions, Hx Bone Marrow Disease, Hx Diabetes, Hx Systemic Lupus Erythematosus, Hx Sickle Cell Disease, Hx Thyroid Disease, Hx Anemia, Hx Unexplained Bleeding, Other Endocrine/Hematological Disorders Cardiovascular History: Denies: Hx Congestive Heart Failure, Hx Hypertension Respiratory History: Reports: Hx Asthma, Hx Pneumonia, Hx Seasonal Allergies Denies: Hx Chronic Bronchitis, Hx Chronic Obstructive Pulmonary Disease (COPD ), Hx Cystic Fibrosis, Hx Lung Cancer, Hx Pleural Effusion, Hx Pulmonary Edema, Hx Pulmonary Embolism, Hx Sleep Apnea, Other Respiratory Problems/Disorders GI History: Reports: Hx Diverticulosis, Other GI Disorders - constipation, colostomy Denies: Hx Cirrhosis, Hx Crohn's Disease, Hx Gall Bladder Disease, Hx Gastroesophageal Reflux Disease, Hx Gastrointestinal Bleed, Hx Hiatal Hernia, Hx Irritable Bowel, Hx Jaundice, Hx Obstructive Bowel, Hx Ileostomy, Hx Pyloric Stenosis, Hx Ulcer History: Reports: Hx Kidney Infection - Acute kidney infection Denies: Hx Renal Disease Sensory History: Reports: Hx Contacts or Glasses Denies: Hx Hearing Aid Opthamlomology History: Reports: Hx Contacts or Glasses Neurological History: Reports: Hx Headaches, Hx Migraine, Other Neuro Impairments/Disorders - Asberger's syndrome Denies: Hx Dementia, Hx Developmental Delay, Hx Nerve Disease, Hx Seizures, Hx Spinal Cord Injury, Hx Transient Ischemic Attacks (TIA) Psychiatric History: Reports: Hx Anxiety, Hx Depression, Hx Substance Abuse Denies: Hx Attention Deficit Hyperactivity Disorder, Hx Eating Disorder, Hx Panic Disorder, Hx Post Traumatic Stress Disorder, Hx Community Mental Health Tx , Hx Schizophrenia, Hx Bipolar Disorder, Hx Suicide Attempt, Hx of Violent Episodes Against Others, Other Psychiatric Issues/Disorders - Surgical History Surgical History: Yes Surgery Procedure, Year, and Place: MULTIPLE NOSE JOBS, sigmond colostomy 2016, cytoplasty Hx Anesthesia Reactions: No - Immunization History Date of Tetanus Vaccine: UNKNOWN Date of Influenza Vaccine: 05/2017 Infectious Disease History: No Infectious Disease History: Reports: Hx Clostridium Difficile, History Other Infectious Disease - chicken pox Denies: Hx Hepatitis, Hx Human Immunodeficiency Virus (HIV), Hx of Known/ Suspected MRSA, Hx Shingles, Hx Tuberculosis, Hx Known/Suspected VRE, Hx Known/ Suspected VRSA, Traveled Outside the [place] in Last 30 Days - Family History Known Family History: Positive: Other - Hx of family depression - Social History Alcohol Use: None Hx Substance Use: Yes Substance Use Type: Reports: None Substance Use Comment - Amount & Last Used: on methadone Hx Tobacco Use: Yes Smoking Status (MU): Former Smoker Amount Used/How Often: pt has not used tobacco products in the last 30 days Review of Systems Positive: Fatigue Positive: Photophobia Positive: Vomiting, Nausea Positive: Headache All Other Systems Reviewed And Are Negative: Yes Physical Exam - Summary Physical Exam Summary: Appearance: Well-appearing, Well-nourished, lying in bed comfortable Skin: Warm, dry, no obvious rash Eyes: sclera anicteric, no conjunctival pallor ENT: mucous membranes moist Neck: deferred Respiratory: No signs of respiratory distress Cardiovascular: Appears well perfused, pulses are nml Abdomen: deferred Musculoskeletal: Moving all 4 extremities without obvious discomfort Neurological: Awake and alert, mentation is normal, speech is fluent and appropriate Psychiatric: affect is normal, does not appear anxious or depressed Triage Information Reviewed: Yes Vital Signs On Initial Exam: Initial Vitals Temp Pulse Resp BP Pulse Ox 99.6 F 102 16 186/97 99 08/11/19 19:46 08/11/19 19:46 08/11/19 19:46 08/11/19 19:46 08/11/19 19:46 Vital Signs Reviewed: Yes Procedures - Sedation Patient Received Moderate/Deep Sedation with Procedure: No Diagnostics - Vital Signs Vital Signs Temp Pulse Resp BP Pulse Ox 08/11/19 19:46 99.6 F 102 16 186/97 99 - Laboratory Lab Statement: Any lab studies that have been ordered have been reviewed, and results considered in the medical decision making process. Re-Evaluation - Re-Evaluation First Eval Re-Evaluation Time: 22:05 Change: Unchanged Comment: Patient is still experiencing a headache now after medications. Second Eval Re-Evaluation Time: 23:40 Change: Improved Comment: Patient's headache has resolved, but he is now shaky and anxious following Third Eval Re-Evaluation Time: 00:40 Change: Improved Comment: His headache is resolved and nausea is mild, but he states he is still anxious. We will try Ativan. Fourth Eval Re-Evaluation Time: 01:55 Change: Improved Comment: Patient is feeling symptom free and is ready to be discharged home. Headache Course/Dx - Course Course Of Treatment: Patient is a 69 y/o M who has a history of migraine headaches with chief complaint of another episode onset three days ago that has continued to worsen with associated symptoms of nausea, vomiting, fatigue, and photophobia. Physical exam is negative for acute abnormalities. In the ED course , the patient was administered fluids, Reglan, Toradol, and Benadryl for the pain. The pain is still present, so we will order Decadron and D.H.E 45. The headache has resolved, but he states that he is now shaky and anxious, so we will order Hydroxyzine. He is still anxious so we will order Ativan. His symptoms have improved, and he feels comfortable being discharged home. We discussed plan for discharge with rx for Decadron. He understands and agrees with this plan. Dx of migraine headache. - Diagnoses Provider Diagnoses: Migraine headache Discharge ED - Sign-Out/Discharge Documenting (check all that apply): Patient Departure - Patient will be discharged home. - Discharge Plan Condition: Good Disposition: HOME Prescriptions: Dexamethasone TAB* [Decadron TAB*] 6 mg PO DAILY #5 tab Patient Education Materials: Migraine Headache (ED) Referrals: [facility] [Outside] Additional Instructions: I would recommend talking to your regular provider about medication to prevent migraines. - Billing Disposition and Condition Condition: GOOD Disposition: Home - Attestation Statements Document Initiated by Van: Yes Documenting Scribe: Hillary Bergman Provider For Whom Van is Documenting (Include Credential): Dr. Alejandro Betancourt MD Scribe Attestation: Hillary Jennings scribed for Dr. Alejandro Betancourt MD on 08/12/19 at 0555. Scribe Documentation Reviewed: Yes Provider Attestation: The documentation as recorded by the Hillary rodrigez accurately reflects the service I personally performed and the decisions made by me, Dr. Alejandro Betancourt MD Status of Scribjered Document: Viewed
[2019-08-11] MEDS ORDERED: diPHENhydraMINE IV* 50 MG/ML 1 ml VIAL (BENADRYL) IV ONE (19:56)
[2019-08-11] MEDS ORDERED: Ketorolac INJ* 30 MG/ML 1 ML VIAL IV PUSH ONE (19:56)
[2019-08-11] MEDS ORDERED: Metoclopramide IV* 5 MG/ML 2 ML VIAL IV SLOW PU ONE (19:57)
[2019-08-11] MEDS: NS 0.9% 1000 ML** 2,000 ML IV ONE (20:08)
[2019-08-11] MEDS ORDERED: Dihydroergotamine (D.H.E.)* 1 MG/ML 1 ML AMP IV SLOW PU ONE (22:08)
[2019-08-11] MEDS ORDERED: Dexamethasone IV* 4 MG/ML 1 ML (4 MG) IV SLOW PU ONE (22:08)
[2019-08-11] MEDS ORDERED: Ondansetron INJ* 2 MG/ML VIAL IV ONE (22:23)
[2019-08-11] MEDS ORDERED: hydrOXYzine HCL TAB* 50 MG PO ONE (23:38)
[2019-08-12] MEDS ORDERED: LORazepam TAB(*) 1 MG PO ONE ×2 (00:41→01:31)
[2019-08-12 02:05] VITALS: BP 178/94
== END 2019-08-12 02:59 | disposition home or self-care (01) ==
LOC: ED 19:46
DX: G43.909 Migraine, unspecified, not intractable, without status migrainosus (principal); J45.909 Unspecified asthma, uncomplicated; F41.9 Anxiety disorder, unspecified; F32.9 Major depressive disorder, single episode, unspecified; F11.20 Opioid dependence, uncomplicated; Z87.891 Personal history of nicotine dependence; Z88.8 Allergy status to other drugs, medicaments and biological substances
CPT/HCPCS: 96361; 96374; 96375; 99283; A9270-GY; J1100; J1110; J1200; J1885; J2405; J2765

== ENCOUNTER 2019-11-09 09:34 | Inpatient (IN) | payer MEDICARE, MEDICAID ==
--- NOTE | 2019-11-09 09:57 | ED ---
HPI Cardiac - HPI Summary HPI Summary: This patient is a 69-year-old male who presents to the ED with the chief complaint of feelings of palpitations and shortness of breath over the past several days. States sxs started Monday (6 days ago). He states he was here one month ago and diagnosed with pneumonia. Pt does feel lightheaded at times when he becomes SOB. SOB only present with exertion, none at rest. States he has difficulty just ambulating around the house. Denies any worsening symptoms during a specific time of day or if lying flat or sitting upright. He does have a history of asthma, however states he typically does not use his albuterol inhalers and typically does not get this fatigued. He has been using his albuterol at home with some relief. Denies syncope, visual changes, TABARES, neuro changes. Troponin was noted to be at 0.05 on previous visit, no other changes. EF 60-65% with mild mitral regurg. Denies any obvious bruising, bleeding, but endorses some darkened stool in colostomy over the past few days. States while here 1mo ago, EKG, ECHO, Stress test and CTA was performed. CTA resulted as nodular infiltrate which could not r/o neoplastic process. Recommended 1mo f/u CT. Hx of opioid use, diverticulitis with colostomy, depression, anxiety, asthma and migraines. Former smoker, no alcohol use. Methodone recently decreased from 90mg daily to 70mg daily. (patient feels he can decrease further and maintain minimal cravings) PCP is Dr. Domingo Has not seen cardiology/pulmonology as an outpatient. Per Dr. Olivia, patient is being assessed for a possible reversal. - History of Current Complaint Chief Complaint: EDShortnessOfBreath Stated Complaint: SHORT OF BREATH,PALPATIONS Time Seen by Provider: 11/09/19 09:46 Hx Obtained From: Patient Onset/Duration: Started Days Ago Timing: Constant Initial Severity: Moderate Current Severity: Moderate Pain Intensity: 3 Pain Scale Used: 0-10 Numeric Aggravating Factor(s): Exertion Associated Signs and Symptoms: Positive: Shortness of Breath. Negative: Vision Changes, Anxiety, Recent Stress, Tingling, Weakness, Cough, Productive Cough, Nonproductive Cough - Additional Pertinent History Primary Care Physician: [id number] - Allergy/Home Medications Allergies/Adverse Reactions: Allergies Allergy/AdvReac Type Severity Reaction Status Date / Time metoclopramide [From Reglan] Allergy Anxiety Verified 11/09/19 09:43 prochlorperazine Allergy Anxiety Verified 11/09/19 09:43 [From Compazine] Home Medications: Home Medications DULoxetine DR BRIGGS* [Cymbalta CAP*] 60 mg PO BEDTIME 08/02/17 [History Confirmed 11/09/19] Albuterol HFA INHALER* [Ventolin HFA Inhaler*] 2 puff INH Q4H PRN mdi 08/08/17 [Rx Confirmed 11/09/19] [id number]-Towcjclh Es (Nf) [Excedrin Extra Strength 250-250-65 mg (NF)] 1 - 2 tab PO SEE INSTRUCTIONS PRN 10/09/19 [History Confirmed 11/09/19] Fluticasone-Salmeterol 250-50* [Advair Diskus 250-50*] 1 puff INH DAILY [History Confirmed 11/09/19] Acetaminophen TAB* [Tylenol TAB*] 650 mg PO Q4H PRN tab 10/10/19 [Rx Confirmed 11/09/19] Methadone TAB* [Dolophine TAB*] 70 mg PO DAILY 11/09/19 [History Confirmed 11/09] PMH/Surg Hx/FS Hx/Imm Hx Previously Healthy: Yes Endocrine/Hematology History: Denies: Hx Anticoagulant Therapy, Hx Blood Disorders, Hx Blood Transfusions, Hx Bone Marrow Disease, Hx Diabetes, Hx Systemic Lupus Erythematosus, Hx Sickle Cell Disease, Hx Thyroid Disease, Hx Anemia, Hx Unexplained Bleeding, Other Endocrine/Hematological Disorders Cardiovascular History: Reports: Other Cardiovascular Problems/Disorders - PVCs Denies: Hx Angina, Hx Congestive Heart Failure, Hx Hypercholesterolemia, Hx Hypertension, Hx Myocardial Infarction Respiratory History: Reports: Hx Asthma, Hx Pneumonia, Hx Seasonal Allergies Denies: Hx Chronic Bronchitis, Hx Chronic Obstructive Pulmonary Disease (COPD ), Hx Cystic Fibrosis, Hx Lung Cancer, Hx Pleural Effusion, Hx Pulmonary Edema, Hx Pulmonary Embolism, Hx Sleep Apnea, Other Respiratory Problems/Disorders GI History: Reports: Hx Diverticulosis, Other GI Disorders - constipation, colostomy Denies: Hx Cirrhosis, Hx Crohn's Disease, Hx Gall Bladder Disease, Hx Gastroesophageal Reflux Disease, Hx Gastrointestinal Bleed, Hx Hiatal Hernia, Hx Irritable Bowel, Hx Jaundice, Hx Obstructive Bowel, Hx Ileostomy, Hx Pyloric Stenosis, Hx Ulcer History: Reports: Hx Kidney Infection - Acute kidney infection Denies: Hx Chronic Renal Failure, Hx Renal Disease Sensory History: Reports: Hx Contacts or Glasses Denies: Hx Hearing Aid Opthamlomology History: Reports: Hx Contacts or Glasses Neurological History: Reports: Hx Headaches, Hx Migraine, Other Neuro Impairments/Disorders - Asberger's syndrome Denies: Hx Dementia, Hx Developmental Delay, Hx Nerve Disease, Hx Seizures, Hx Spinal Cord Injury, Hx Transient Ischemic Attacks (TIA) Psychiatric History: Reports: Hx Anxiety, Hx Depression, Hx Substance Abuse Denies: Hx Attention Deficit Hyperactivity Disorder, Hx Eating Disorder, Hx Panic Disorder, Hx Post Traumatic Stress Disorder, Hx Community Mental Health Tx , Hx Schizophrenia, Hx Bipolar Disorder, Hx Suicide Attempt, Hx of Violent Episodes Against Others, Other Psychiatric Issues/Disorders - Surgical History Surgery Procedure, Year, and Place: MULTIPLE NOSE JOBS, sigmond colostomy 2015, cytoplasty Hx Anesthesia Reactions: No - Immunization History Date of Tetanus Vaccine: UNKNOWN Date of Influenza Vaccine: 05/2017 Hx Pertussis Vaccination: No Immunizations Up to Date: Yes Infectious Disease History: No Infectious Disease History: Reports: Hx Clostridium Difficile, History Other Infectious Disease - chicken pox Denies: Hx Hepatitis, Hx Human Immunodeficiency Virus (HIV), Hx of Known/ Suspected MRSA, Hx Shingles, Hx Tuberculosis, Hx Known/Suspected VRE, Hx Known/ Suspected VRSA, Traveled Outside the [place] in Last 30 Days - Family History Known Family History: Positive: Other - Hx of family depression, Non- Contributory Negative: Cardiac Disease - Social History Occupation: Unemployed Lives: With Family Alcohol Use: None Hx Substance Use: Yes Substance Use Type: Reports: None Substance Use Comment - Amount & Last Used: on methadone Hx Tobacco Use: Yes Smoking Status (MU): Former Smoker Amount Used/How Often: pt has not used tobacco products in the last 30 days Review of Systems Negative: Fever, Chills, Fatigue, Skin Diaphoresis Negative: Palpitations, Chest Pain Negative: Shortness Of Breath, Cough Genitourinary: Negative Positive: no symptoms reported, see HPI Negative: Arthralgia, Myalgia Skin: Negative Neurological/Mental Status: Negative All Other Systems Reviewed And Are Negative: Yes Physical Exam Triage Information Reviewed: Yes Vital Signs On Initial Exam: Initial Vitals Temp Pulse Resp BP Pulse Ox 97.5 F 107 15 111/67 100 11/09/19 09:35 11/09/19 09:35 11/09/19 09:35 11/09/19 09:35 11/09/19 09:35 Vital Signs Reviewed: Yes Appearance: Positive: Well-Appearing, Well-Nourished Skin: Positive: Pale Head/Face: Positive: Normal Head/Face Inspection Eyes: Positive: EOMI, DOMINIQUE, Conjunctiva Clear Neck: Positive: Supple, Nontender, No Lymphadenopathy Respiratory/Lung Sounds: Positive: Clear to Auscultation, Breath Sounds Present Cardiovascular: Positive: RRR, Pulses are Symmetrical in both Upper and Lower Extremities Musculoskeletal: Positive: Normal, Strength/ROM Intact Neurological: Positive: Speech Normal Psychiatric: Positive: Normal, Affect/Mood Appropriate AVPU Assessment: Alert Procedures - Sedation Patient Received Moderate/Deep Sedation with Procedure: No Diagnostics - Vital Signs Vital Signs Temp Pulse Resp BP Pulse Ox 11/09/19 09:35 97.5 F 107 15 111/67 100 - Laboratory Result Diagrams: 11/09/19 10:17 11/09/19 10:17 Lab Statement: Any lab studies that have been ordered have been reviewed, and results considered in the medical decision making process. Disposition - Course Course Of Treatment: This patient is evaluated for shortness of breath on exertion, dizziness and lightheadedness. On physical examination, patient appears pale. There is some darkened stool in his colostomy. No obvious signs of easy bruising or bleeding throughout. Lungs are CTA, RRR. Labs obtained which show an H&H of 8.8 and 26. This is decreased from 1 mo ago from Hbg of 13. He was given 1 L fluids and 40 mg Protonix. Discussed with Dr. Nora Gibson who will see pt and consult. Pt will be admitted hospitalist service. - Differential Dx - Cardiopulmonary Differential Diagnoses - Cardiopulmonary: Other - GI bleed, SOB, dizziness - Diagnoses Provider Diagnoses: Shortness of breath, Low hemoglobin - Physician Notifications Discussed Care Of Patient With: Saloni Smith - Discussed with Dr. Gallagher Instructed by Provider To: Admit As Inpatient - GI will see and consult Discharge ED - Sign-Out/Discharge Documenting (check all that apply): Patient Departure - Discharge Plan Condition: Fair Disposition: ADMITTED TO [facility] - Billing Disposition and Condition Condition: FAIR Disposition: Admitted to [facility] - Attestation Statements Provider Attestation: I was available for consult. This patient was seen by the LJ. The patient was not presented to, seen by, or examined by me. Harpreet Vergara MD
--- OUTSIDE RECORDS SUMMARY | 2019-11-09 09:57 | XMS REPORT | Continuity of Care Document ---
:1950 External Reference #:[id number] Author Name Torres Olivia MD, FACS (transmitted by agent of provider Abilio Burch) Address [address] [place] [address] Care Team Providers Name Role Phone Saul Bain MD - Neuromuscular Care Team Information Quality Project Manager Medicine Saul Bain MD - Neuromuscular Care Team Information Quality Project Manager Medicine Shazia Domingo DO - Hospitalist Care Team Information Quality Project Manager Problems Active Problems Provider Date Asthma without status asthmaticus Adrian Thomason M.D.,FACP Onset: 2008 Depressive disorder Adrian Thomason M.D.,FACP Onset: 04/22/2009 Impaired fasting glycaemia Adrian Thomason M.D.,FACP Onset: 02/03/2011 Mild recurrent major depression Babak Hewitt M.D. Onset: 03/09/2016 Opioid dependence Adrian Thomason M.D.,FACP Onset: 03/13/2017 Note: opiate use d/o Colostomy present Adrian Thomason M.D.,FACP Onset: 02/15/2018 Migraine with typical aura Adrian Thomason M.D.,FACP Onset: 02/15/2018 Central pontine myelinolysis Adrian Thomason M.D.,FACP Onset: 02/15/2018 Note: on MRI 2008 Social History Type Date Description Comments Sex Unknown Tobacco Use Start: Unknown Never Smoked Cigarettes ETOH Use 03/23/2018 Denies alcohol use Tobacco Use Start: Unknown Patient has never smoked Recreational Drug Use Former Drug User last used heroin 03/2019 Smoking Status Reviewed: 10/31/19 Patient has never smoked Exercise Type/Frequency Exercises regularly Allergies, Adverse Reactions, Alerts Active Allergies Reaction Severity Comments Date Antiemetics overwhelming anxiety 04/22/2009 Medications Active Medications SIG Qnty Indications Ordering Date Provider Ventrickey HFA Use 2 Inhalations 18units J45.909 Bryanna Huynh, 03/09/2016 By Mouth Four N.P. 108(90Base) mcg/Act Times A Day as Aerosol Needed Advair Diskus Use One Inhalation 60units J45.909 Babak 04/22/2009 Twice A Day Kathrin Hewitt 250-50mcg/Dose Aerosol Cymbalta 1 daily in the 30caps Unknown 60mg Caps DR evening Part Excedrin Migraine 1-2 three times Unknown daily prn headache [id number] Tablets Acetaminophen ER 1 Every 4 hours Unknown 650mg prn Mild pain Tablets ER Methadone HCL 75 mg per day for 135tabs Unknown 10mg therapeutic Tablets Immunizations CPT Code Status Date Vaccine Reaction Lot # [id number] Given 10/22/2019 Pneumonia Vaccine [id number] 12629 Given 06/22/2018 Fluzone High Dose 39794 Given 07/19/2017 Pneumococcal Conjugate no immediate reaction, [id number] Vaccine 13 Valent For pt tolerated well Intramuscular Use 65435 Given 06/01/2017 Influenza Virus Vaccine, no immediate reaction [id number] Quadrivalent, Split, pt tolerated well Preservative Free Q2037 Given 07/16/2016 Fluvirin Im 3Yrs And Older 49240 Given 07/19/2010 Influenza Virus 3Yrs & Over 29825 Given 04/12/2010 Pneumonia Vaccine [id number] 16404 Given 07/21/2009 Influenza Virus Vaccine, [id number] Pandemic Formulation 93822 Given 07/21/2009 Administration Swine Flu Shot 81674 Given 06/26/2009 Influenza Virus 3Yrs & Over [id number] Vital Signs Date Vital Result Comment 10/31/2019 9:38am Height 65 inches 5'5" Weight 124.00 lb Heart Rate 96 /min BP Systolic Sitting 142 mmHg BP Diastolic Sitting 80 mmHg Respiratory Rate 16 /min Body Temperature 97.4 F BMI (Body Mass Index) 20.6 kg/m2 10/22/2019 10:03am Height 64 inches 5'4" Weight 124.00 lb Heart Rate 87 /min BP Systolic Sitting 149 mmHg BP Diastolic Sitting 82 mmHg Body Temperature 97.6 F O2 % BldC Oximetry 96 % BMI (Body Mass Index) 21.3 kg/m2 Results Description No Information Available Procedures Date Code Description Status 10/10/2019 39605 Treadmill Interp/Report Only Completed 10/10/2019 16724 Stress Test Supervsn W/Out I/R Completed 10/10/2019 16051 EKG, Interpretation Only Completed 10/09/2019 87676 ECHO Transthorasic Realtime 2D W Doppler & Color Flow Completed Hosp 10/09/2019 14274 EKG, Interpretation Only Completed 06/15/2004 34826350 Colonoscopy Completed Medical Devices Description No Information Available Encounters Type Date Location Provider Dx Diagnosis Office Visit 10/31/2019 Surgical Torres Olivia, K57.32 Dvtrcli of lg int 9:30a [facility], FACS w/o perforation or abscess w/o bleeding K94.00 Colostomy complication, unspecified K43.5 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 Internal Shazia Domingo, Z93.3 Colostomy status Medicine - Suite DO R J18.9 Pneumonia, unspecified organism Z23 Encounter for immunization F11.20 Opioid dependence, uncomplicated Office Visit 10/10/2019 [facility] Adrian Schmidt J18.9 Pneumonia, 11:10a Assoc,jessica Thomason M.D.,FACP unspecified Hospitalists organism Office Visit 10/09/2019 [facility] Kemi R00.2 Palpitations 11:10a Assoc,jessica No NP Hospitalists E83.42 Hypomagnesemia R06.02 Shortness of breath R79.89 Other specified abnormal findings of blood chemistry Assessments Date Code Description Provider 10/31/2019 K57.32 Diverticulitis of large intestine Torres Olivia MD, FACS without perforation or abscess without bleeding 10/31/2019 K94.00 Colostomy complication, unspecified Torres Olivia MD, FACS 10/31/2019 K43.5 Parastomal hernia without obstruction Torres Olivia MD, FACS or gangrene 10/22/2019 Z93.3 Colostomy status Shazia Domingo, DO 10/22/2019 J18.9 Pneumonia, unspecified organism Shazia Domingo, DO 10/22/2019 Z23 Encounter for immunization Shazia Domingo, DO 10/22/2019 F11.20 Opioid dependence, uncomplicated Shazia Domingo, DO 10/10/2019 R94.31 Abnormal electrocardiogram [ECG] [EKG] Cindy Rivera M.D. 10/10/2019 J18.9 Pneumonia, unspecified organism Adrian Thomason M.D., FACP 10/10/2019 R00.2 Palpitations Whitney Tay MD, [facility], [facility] 10/09/2019 R94.31 Abnormal electrocardiogram [ECG] [EKG] Charles Calhoun M.D. 10/09/2019 R00.2 Palpitations Kemichantal No, COLOR WORKER 10/09/2019 R94.31 Abnormal electrocardiogram [ECG] [EKG] Lisa Cassidy M.D. 10/09/2019 E83.42 Hypomagnesemia Kemi No, COLOR WORKER 10/09/2019 R06.02 Shortness of breath Kemi Cocoa, COLOR WORKER 10/09/2019 R79.89 Other specified abnormal findings of Kemi Cocoa, COLOR WORKER blood chemistry Plan of Treatment 10/31/2019 - Torres Olivia MD, FACSK57.32 Diverticulitis of large intestine without perforation or abscess without bleedingReferral[facility] UzqngeitxqdphnhuC82.00 Colostomy complication, unspecifiedReferral: Lynn Walters, MOO, Linen Checker/RNK43.5 Parastomal hernia without obstruction or gangreneFollow up:Operating room Functional Status Description No Information Available Mental Status Description No Information Available Referrals Refer to Reason for Referral Status Appt Date [facility] pre op evaluation for colostomy Created reversal 4 years after Rubio[facility] for perforated diverticulitis. Last colonoscopy 10 years ago. Please scope rectum as well as colon [address] [place] [address] [phone] Lynn Walters RN Parastomal ulceration Created [address] [place] [address] [phone] Torres Olivia MD Sent 10/31/[address] [facility] [id number] [phone]
--- OUTSIDE RECORDS SUMMARY | 2019-11-09 09:57 | XMS REPORT | Continuity of Care Document ---
:1950 External Reference #:[id number] Author Name Cindy Rivera M.D. (transmitted by agent of provider Carlita Matthew) Address [address] [place] [id number] Care Team Providers Name Role Phone Saul Bain MD - Neuromuscular Care Team Information Roll Or Tape Edge Machine Operator Medicine Rachel Villegas M.D. 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 Problems Active Problems Provider Date Asthma without [...] Patient has never smoked Recreational Drug Use Regularly uses Heroin Smoking Status Reviewed: 03/23/18 Patient has never smoked Allergies, Adverse Reactions, Alerts Active Allergies Reaction Severity Comments Date Antiemetics overwhelming anxiety 04/22/2009 Medications Active Medications SIG Qnty Indications Ordering Date Provider Topiramate 2 tabs twice a day 120tabs Adrian Schmidt 02/22/2018 50mg Kathrin Thomason,FACP Tablets Rizatriptan take 1 tablet by 9tabs Adrian Schmidt 02/15/2018 Benzoate mouth twice a day Kathrin Thomason,FACP 10mg as needed for Tablets headache, maximum 2 days a week Magnesium Oxide -MG 1 by mouth every 90caps Adrian Schmidt 02/15/2018 Supplement day Kathrin Thomason,FACP 400mg Capsules Riboflavin 4 every day 120caps Adrian Schmidt 02/15/2018 100mg Kathrin Thomason,FACP Capsules Ventolin HFA Use 2 Inhalations 18units J45.909 Bryanna Huynh, 03/09/2016 By Mouth Four Times N.P. 108(90Base) mcg/Act A Day as Needed Aerosol Excedrin Extra Adrian Schmidt 04/22/2009 Strength Kathrin Thomason,FACP Tablets Advair Diskus Use One Inhalation 60units J45.909 Babak 04/22/2009 Twice A Day Kathrin Hewitt 250-50mcg/Dose Aerosol Cymbalta 1 daily 30caps Unknown 60mg Caps DR Sonia Clonazepam 1/2 tab prn (pt Unknown 1mg gets 15 tabs a Tablets month) Suboxone 1 strip sl twice Unknown 8-2mg Film day Immunizations CPT Code Status Date Vaccine Reaction Lot # [id number] Given 06/22/2018 Fluzone High Dose 01184 Given 07/19/2017 Pneumococcal Conjugate no immediate reaction, [id number] Vaccine 13 Valent For pt tolerated well Intramuscular Use 40552 Given 06/01/2017 Influenza Virus Vaccine, no immediate reaction [id number] Quadrivalent, Split, pt tolerated well Preservative Free Q2037 Given 07/16/2016 Fluvirin Im 3Yrs And Older 91790 Given 07/19/2010 Influenza Virus 3Yrs & Over 76683 Given 04/12/2010 Pneumonia Vaccine [id number] 17995 Given 07/21/2009 Influenza Virus Vaccine, [id number] Pandemic Formulation 31964 Given 07/21/2009 Administration Swine Flu Shot 23288 Given 06/26/2009 Influenza Virus 3Yrs & Over [id number] Vital Signs Date Vital Result Comment 03/23/2018 2:32pm Height 64 inches 5'4" Weight 150.12 lb Heart Rate 92 /min BP Systolic Sitting 128 mmHg BP Diastolic Sitting 78 mmHg Body Temperature 98.1 F O2 % BldC Oximetry 96 % BMI (Body Mass Index) 25.8 kg/m2 02/15/2018 8:17am Height 64 inches 5'4" Weight 148.00 lb Heart Rate 82 /min BP Systolic Sitting 138 mmHg BP Diastolic Sitting 70 mmHg Body Temperature 98.6 F O2 % BldC Oximetry 98 % BMI (Body Mass Index) 25.4 kg/m2 Results Description No Information Available Procedures Date Code Description Status 06/15/2004 71109786 Colonoscopy Completed Medical Devices Description No Information Available Encounters Description No Information Available Assessments Description No Information Available Plan of Treatment Future Appointment(s):10/22/2019 10:20 am - Shazia Domingo DO at [facility] Internal Medicine - [address]/23/2018 - Adrian Thomason M.D.,FACPG43.119 Migraine with aura, intractable, without status migrainosusComments:Please continue taking your Topamax for another week to give the medication more time to improve your migraines. Please give the office a call in a week and tell us how you are doing.If your symptoms persist with the Topomax, you may begin to wean yourself off of Topomax from 3 pills a day to 2 pills a day, similar to the schedule you used to increase your Topomax medication. When you reach 2 pills aday, give the office a call and I will prescribe you Depakote and you will begin to increase this medication as you are weaning yourself off of Topomax. Discontinuing Topomax too fast can cause seizures, so please follow the weaning of Topomax as directed. If Depakote and Topomax does not improve yourmigraines symptoms, we will try injection treatments called Aimovig to aid in migraines.F11.21 Opioid dependence, in remissionComments:Continue to take suboxone as directed. Continue to follow up with counseling.K94.09 Other complications of colostomyComments:Continue to follow up with surgeon, Dr. Velasquez, to manage your colostomy bag. Functional Status Description No Information Available Mental Status Description No Information Available Referrals Description No Information Available
--- OUTSIDE RECORDS SUMMARY | 2019-11-09 09:57 | XMS REPORT | Continuity of Care Document ---
:1950 External Reference #:[id number] Author Name Shazia Domingo DO (transmitted by agent of provider Diana Altman) Address [address] [place] [address] Care Team Providers Name Role Phone Saul Bain MD - Neuromuscular Care Team Information Global Program Manager [phone] Medicine Rachel Villegas M.D. - Family Medicine Care Team Information Global Program Manager [phone] Problems Active Problems Provider Date Asthma without [...] Use Regularly uses Heroin Smoking Status Reviewed: 10/22/19 Patient has never smoked Allergies, Adverse Reactions, Alerts Active Allergies Reaction Severity Comments Date Antiemetics overwhelming anxiety 04/22/2009 Medications Active Medications SIG Qnty Indications Ordering Date Provider Ventolin HFA Use 2 Inhalations 18units J45.909 Bryanna Huynh, 03/09/2016 By Mouth Four N.P. 108(90Base) mcg/Act Times A Day as Aerosol Needed Advair Diskus Use One Inhalation 60units J45.909 Babak 04/22/2009 Twice A Day Kathrin Hewitt 250-50mcg/Dose Aerosol Cymbalta 1 daily in the 30caps Unknown 60mg Caps DR evening Part Excedrin Migraine 1-2 three times Unknown daily prn headache [id number] Tablets Acetaminophen ER 1 Every 4 hours Unknown 650mg prn Mild pain Tablets ER Methadone HCL 75 mg per day for 135tabs Unknown 10mg therapeutic Tablets Immunizations CPT Code Status Date Vaccine Reaction Lot # [id number] Given 10/22/2019 Pneumonia Vaccine [id number] 13756 Given 06/22/2018 Fluzone High Dose 49800 Given 07/19/2017 Pneumococcal Conjugate no immediate reaction, [id number] Vaccine 13 Valent For pt tolerated well Intramuscular Use 95651 Given 06/01/2017 Influenza Virus Vaccine, no immediate reaction [id number] Quadrivalent, Split, pt tolerated well Preservative Free Q2037 Given 07/16/2016 Fluvirin Im 3Yrs And Older 13897 Given 07/19/2010 Influenza Virus 3Yrs & Over 42097 Given 04/12/2010 Pneumonia Vaccine [id number] 45978 Given 07/21/2009 Influenza Virus Vaccine, [id number] Pandemic Formulation 62768 Given 07/21/2009 Administration Swine Flu Shot 62262 Given 06/26/2009 Influenza Virus 3Yrs & Over [id number] Vital Signs Date Vital Result Comment 10/22/2019 10:03am Height 64 inches 5'4" Weight 124.00 lb Heart Rate 87 /min BP Systolic Sitting 149 mmHg BP Diastolic Sitting 82 mmHg Body Temperature 97.6 F O2 % BldC Oximetry 96 % BMI (Body Mass Index) 21.3 kg/m2 03/23/2018 2:32pm Height 64 inches 5'4" Weight 150.12 lb Heart Rate 92 /min BP Systolic Sitting 128 mmHg BP Diastolic Sitting 78 mmHg Body Temperature 98.1 F O2 % BldC Oximetry 96 % BMI (Body Mass Index) 25.8 kg/m2 Results Description No Information Available Procedures Date Code Description Status 10/10/2019 29760 Treadmill Interp/Report Only Completed 10/10/2019 83219 Stress Test Supervsn W/Out I/R Completed 10/10/2019 63140 EKG, Interpretation Only Completed 10/09/2019 85326 ECHO Transthorasic Realtime 2D W Doppler & Color Flow Completed Hosp 10/09/2019 47285 EKG, Interpretation Only Completed 06/15/2004 36630623 Colonoscopy Completed Medical Devices Description No Information Available Encounters Type Date Location Provider Dx Diagnosis Office Visit 10/22/2019 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 Internal Shazia Domingo, Z93.3 Colostomy status 10:20a Medicine - [address] DO J18.9 Pneumonia, unspecified organism Z23 Encounter for immunization F11.20 Opioid dependence, uncomplicated Assessments Date Code Description Provider 10/22/2019 Z93.3 Colostomy status Shazia Domingo, DO 10/22/2019 J18.9 Pneumonia, unspecified organism Shazia Domingo, DO 10/22/2019 Z23 Encounter for immunization Shazia Domingo, DO 10/22/2019 F11.20 Opioid dependence, uncomplicated Shazia Domingo, DO 10/10/2019 R00.2 Palpitations Whitney Tay MD, [facility] 10/09/2019 R00.2 Palpitations Kemi No NP 10/09/2019 R94.31 Abnormal electrocardiogram [ECG] [EKG] Lisa Cassidy M.D. 10/09/2019 E83.42 Hypomagnesemia Kemi No, DEANGELO 10/09/2019 R06.02 Shortness of breath Kemi No, DEANGELO 10/09/2019 R79.89 Other specified abnormal findings of Kemi No NP blood chemistry Plan of Treatment 10/22/2019 - Shazia Domingo DOZ93.3 Colostomy statusReferral:Torres Olivia MD, Surgery,JpbuvfjO15.9 Pneumonia, unspecified [id number] Encounter for [id number] Opioid dependence, uncomplicated Functional Status Description No Information Available Mental Status Description No Information Available Referrals Refer to Reason for Referral Status Appt Date Torres Olviia MD Created [address] [facility] [address] [facility] [address] [phone]
[2019-11-09 10:22] LABS: ABS Lymphocytes 0.5 10^3/ul (1.0-4.8); ABS Monocytes 0.4 10^3/ul (0-0.8); ABS Neutrophils 2.5 10^3/ul (1.5-7.7); Eosinophil % 1.2 %; Hematocrit 26 % (42-52); Hemoglobin 8.8 g/dL (14.0-18.0); Lymphocyte % 14.5 %; Mean Corpuscular HGB Conc 34 g/dL (31-36); Mean Corpuscular Hemoglobin 31 pg (27-31); Mean Corpuscular Volume 89 fL (80-94); Mean Platelet Volume 7.1 fL (7.4-10.4); Platelet Count 211 10^3/uL (150-450); Red Blood Count 2.88 10^6 /uL (4.18-5.48); Red Cell Distribution Width 15 % (10-15); White Blood Count 3.6 10^3/uL (3.5-10.8)
[2019-11-09 10:40] LABS: BUN/Creatinine Ratio 22.6 (8-20); Calcium 9.2 mg/dL (8.6-10.3); EGFR African American 98.1 (>60); Magnesium 1.9 mg/dL (1.9-2.7); Potassium 4.2 mmol/L (3.5-5.0)
[2019-11-09 10:42] LABS: Troponin I 0.01 ng/mL (<0.03)
[2019-11-09] MEDS ORDERED: NS 0.9% 1000 ML** 1,000 ML IV ONE (10:42)
[2019-11-09 11:08] LABS: Activated Partial Thrombo Time 37.2 seconds (26.0-38.0); INR 0.99 (0.82-1.09)
[2019-11-09] MEDS ORDERED: Pantoprazole IV* 40 MG IV ONE ×2 (11:15→12:14)
[2019-11-09 11:31] LABS: TSH (Thyroid Stimulating Horm) 1.58 mcIU/mL (0.34-5.60)
[2019-11-09] MEDS ORDERED: Albuterol HFA INHALER* 8 gm MDI INH PRN (12:14)
--- NOTE | 2019-11-09 14:14 | HP ---
HISTORY AND PHYSICAL: DATE OF ADMISSION: 11/09/19 PRIMARY CARE PHYSICIAN: Dr. Shazia Domingo at [facility] CONSULTING PROVIDER: Dr. Ludy Gallagher GI. ATTENDING PHYSICIAN: Dr. Saloni Smith * (dictated by Thelma Sanford NP) CHIEF COMPLAINT: 1. Shortness of breath. 2. Palpitations. HISTORY OF PRESENT ILLNESS: Mr. Macias is a 69-year-old male with a past medical history significant for asthma, migraines, anxiety, depression, diverticulosis, constipation, C. diff and substance abuse; who presented to the emergency department today with complaints of shortness of breath and palpitations. The patient reports that he has been feeling shortness of breath and palpitations over the past several days. He reports symptoms started on Monday, approximately 6 days ago. He reports he has had some difficulty ambulating due to this shortness of breath. He reports aggravating symptoms include any activity including ambulation. He reports alleviating symptoms include sitting and resting or lying and resting. He reports he has also been experiencing an occasional dry cough and sore throat for about 2 to 3 days, but he does not believe these are related. 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 He reports that he has noted his ostomy output to have darkened in color. He denies any obvious bruising. He denies any obvious bleeding. He denies increase in ostomy output. The patient does report an increase in ibuprofen intake, although he reports he has only taken it today and yesterday. He reports he took 400 mg today and 600 mg yesterday. He also does report taking aspirin regularly in the form of Excedrin 1 to 2 per day. He reports that he has been telling these symptoms to the providers [facility] who had been taking his vital signs and they were concerned today given his shortness of breath and referred him to the emergency department. While in the emergency department, the patient had initial blood work which revealed a normocytic anemia with the hemoglobin and hematocrit of 8.8 and 26 respectively. This is a significant drop from his H and H on 10/09/19 which was 13.5 and 40. The patient was evaluated by the ED provider and she was concerned about darkened stool in ostomy, anemia, and symptoms. Hospitalists were asked to evaluate for admission. PAST MEDICAL HISTORY: 1. Asthma. 2. Migraines. 3. Anxiety. 4. Depression. 5. Diverticulosis. 6. History of constipation. 7. History of C. diff. 8. History of polysubstance abuse. PAST SURGICAL HISTORY: 1. Sigmoid colectomy with diverting colostomy in 2016. 2. Cystoscopy. 3. Nasal surgery x3. HOME MEDICATIONS: 1. Methadone 70 mg p.o. daily 2. Advair 250/50 one inhalation daily. 3. Cymbalta 60 mg p.o. at bedtime. 4. Albuterol 2 puff inhalations q.4 hours p.r.n. 5. Tylenol 650 mg p.o. q.4 hours p.r.n. 6. Excedrin extra strength 1 to 2 tabs p.o. p.r.n. ALLERGIES: REGLAN and COMPAZINE. FAMILY HISTORY: The patient reports dad had Parkinson's and from complications. The patient reports mother is alive and well. The patient denies coronary artery disease, diabetes, or cancer family history. SOCIAL HISTORY: The patient is a former smoker. He smoked as a teenager. The patient has a history of polysubstance abuse. He reports his last heroin use was in March 2019. 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 The patient is single. The patient's surrogate decision maker if he is unable to make his own decisions will be his friend, Pavel Cooney. The patient is a full code. REVIEW OF SYSTEMS: A 14-point review of systems was performed and all pertinent positive and negative findings are in the HPI. All others are negative. PHYSICAL EXAMINATION GENERAL: Mr. Macias is a 69-year-old male who is lying in bed. Appears to be in no acute distress. Appears stated age. VITAL SIGNS: Temp 97.5, HR 95, RR 16, O2 saturation is 95% on room air, BP 153/ 76. HEENT: EOMs intact. Sclerae without icterus. Oral mucosa is moist without lesions. Posterior pharynx is clear. Tonsils without erythema or exudate. NECK: No lymphadenopathy. No pain on palpation. RESPIRATORY: Symmetrical chest expansion. No accessory muscle use. Lungs are clear to auscultation. No rhonchi, wheezes, or rubs. CARDIAC: Regular rate and rhythm. S1, S2 present. No murmurs, rubs, or gallops. ABDOMEN: Soft, nontender. Bowel sounds are normoactive. The patient has ostomy to left lower quadrant. Ostomy is prolapsed and the patient reports this has been baseline for about 1 year. EXTREMITIES: Skin is warm and smooth bilaterally. No edema. Pedal pulses 2+ bilaterally. MUSCULOSKELETAL: No pain or deformities. NEUROLOGIC: The patient is awake, alert, and oriented x4. Motor strength is 5/ 5 in upper and lower extremities. SKIN: Grossly intact without lesions. DIAGNOSTIC STUDIES/LAB DATA: WBC 3.6, hemoglobin 8.8, hematocrit 26, platelets 211. Sodium 143, potassium 4.2, chloride 105, carbon dioxide 30, BUN 21, creatinine 0.93. Chest x-ray: No active cardiopulmonary disease. EKG: Sinus rhythm. No ST changes. Sinus tammie consistent with prior EKGs. ASSESSMENT AND PLAN: Mr. Macias is a 69-year-old male with a past medical history significant for asthma, migraines, anxiety, depression, diverticulosis, constipation, C. diff, polysubstance abuse; who presented to the emergency department today with shortness of breath and was found to be anemic with a possible gastrointestinal bleed. The patient will be admitted on OBV. 1. Anemia: The patient's H and H is 8.8 and 26 respectively. There is concern for gastrointestinal bleed given dark stool in ostomy. Given this Gastroenterology was consulted by the ER physician and by this jingle writer. Plan will be q.8 hour H and H. the patient will receive Protonix bolus and a subsequent drip. The patient will be placed on clear liquid diet with n.p.o. after midnight. The patient will be provided with IV fluids. The patient will be evaluated by Gastroenterology tomorrow morning. If the patient drops below 7 , we will transfuse. 2. Shortness of breath: I suspect the patient's shortness of breath is secondary to his anemia. Given he had a cardiac workup in September with an ejection fraction of 60% to 65% and no other acute findings. The patient's troponin here has also been negative. The patient's EKG is unremarkable. The patient's chest x-ray is unremarkable. It should be mentioned that the patient was diagnosed with pneumonia on his visit here in September and was treated and reports he was in his normal state of health until recently. Once again, I suspect this shortness of breath is likely secondary to his anemia. 3. Sore throat/cough: The patient reports sore throat and cough for about 2 to 3 days. He report it as a dry cough. I suspect this is unrelated to his anemia and shortness of breath. I will obtain a throat culture. The patient's vital signs are stable. 4. Asthma: We will continue the patient's medications. He is currently not having any symptoms that will be concerning for an asthma attack. His lung sounds are clear. I believe that his shortness of breath is more likely secondary to anemia and less likely secondary to asthma. 5. Migraines: The patient has a history of migraines. We will order Tylenol. I am going to hold his Excedrin and not provide him with any NSAIDs given his anemia and possible gastrointestinal bleed. 6. Anxiety and depression: We will continue the patient's home medication of Cymbalta. 7. Diverticulosis: The patient has a history of diverticulosis and has had a colostomy secondary to diverticulosis. We will continue ostomy care. The patient has been seen by Dr. Olivia with discussion of possible reversal of his ostomy. 8. History of constipation: The patient reports adequate output. We will provide supportive care. 9. History of Clostridium difficile: The patient is not experiencing any abdominal pain, increase in ostomy output, fever. I have a low suspicion for Clostridium difficile, therefore, we will not test at this time. 10. History of polysubstance abuse: We will continue the patient's methadone. It should be mentioned that the patient did decrease his methadone from 90 to 70 mg p.o. daily after his last admission in September. 11. FEN: The patient will be placed on a clear liquid diet. The patient will be placed n.p.o. after midnight. 12. Code status: The patient is a full code. 13. DVT prophylaxis: The patient is a moderate risk. Given the patient's anemia and possible gastrointestinal bleed, I will place him on SCDs and hold any chemical prophylaxis. TIME SPENT: Approximately 65 minutes was spent on this admission, greater than half the time was spent with the patient obtaining my history, performing physical exam, and reviewing my plan of care. The case has been reviewed with my attending Dr. Smith; he is in agreement with my plan of care. THELMA SANFORD, DEANGELO [id number]/[facility] #: [id number] JACKLYN
[2019-11-09] MEDS: NS 0.9% 1000 ML** 1,000 ML IV SCH (14:35)
[2019-11-09] MEDS: Pantoprazole* 80 mg IN NS 80 MG/250 ML BAG IV SCH (15:06)
[2019-11-09 15:13] LABS: Hematocrit 22 % (42-52); Hemoglobin 7.4 g/dL (14.0-18.0)
[2019-11-09] MEDS: DULoxetine DR CAP* 60 MG CAP.DR PO SCH (20:52)
[2019-11-09] MEDS: Acetaminophen TAB* 325 MG PO PRN (20:56)
[2019-11-09 22:02] LABS: Hematocrit 24 % (42-52); Hemoglobin 8.1 g/dL (14.0-18.0)
[2019-11-10 00:51] LABS: Hematocrit 25 % (42-52); Hemoglobin 8.5 g/dL (14.0-18.0)
[2019-11-10] MEDS: Acetaminophen TAB* 325 MG PO PRN ×2 (02:32→15:00)
[2019-11-10] MEDS: Pantoprazole* 80 mg IN NS 80 MG/250 ML BAG IV SCH ×2 (02:33→09:29)
[2019-11-10] MEDS: NS 0.9% 1000 ML** 1,000 ML IV SCH (04:50)
[2019-11-10 06:40] LABS: Activated Partial Thrombo Time 21.4 seconds (26.0-38.0); INR 1.01 (0.82-1.09)
[2019-11-10 06:49] LABS: Albumin 3.4 g/dL (3.2-5.2); Albumin/Globulin Ratio 1.5 (1-3); BUN/Creatinine Ratio 12.7 (8-20); Calcium 8.1 mg/dL (8.6-10.3); EGFR African American 118.4 (>60); EGFR Non-African American 97.8 (>60); Globulin 2.2 g/dL (2-4); Potassium 4.2 mmol/L (3.5-5.0); Total Bilirubin 0.7 mg/dL (0.2-1.0); Total Protein 5.6 g/dL (6.4-8.9)
[2019-11-10 07:10] LABS: ABS Lymphocytes 0.7 10^3/ul (1.0-4.8); ABS Monocytes 0.5 10^3/ul (0-0.8); ABS Neutrophils 3.1 10^3/ul (1.5-7.7); Eosinophil % 0.3 %; Hematocrit 26 % (42-52); Hemoglobin 8.7 g/dL (14.0-18.0); Lymphocyte % 16.1 %; Mean Corpuscular HGB Conc 34 g/dL (31-36); Mean Corpuscular Hemoglobin 30 pg (27-31); Mean Corpuscular Volume 89 fL (80-94); Red Cell Distribution Width 14 % (10-15); White Blood Count 4.4 10^3/uL (3.5-10.8)
[2019-11-10] MEDS: Fluticasone-Salmeterol 250-50* DISKUS INH SCH (07:58)
[2019-11-10 08:10] LABS: Platelet Count Platelets clumped. 10^3/uL (150-450)
[2019-11-10] MEDS: Methadone TAB* 10 MG PO SCH (09:27)
--- NOTE | 2019-11-10 11:46 | PN ---
Subjective Date of Service: 11/10/19 Interval History: Patient is feeling uncomfortable today. His sore throat continues and c/o body aches. This has been present for 3 days. Denies fever/chills, difficulty breathing at rest, chest pain, abd pain, nausea. Patient has not been out of bed yet so is unsure if he is having SOB with exertion. Objective Active Medications: Acetaminophen (Tylenol Tab*) 650 mg PO Q4H PRN PRN Reason: MILD PAIN or TEMP > 100.4 Last Admin: 11/10/19 02:32 Dose: 650 mg Albuterol (Ventolin Hfa Inhaler*) 2 puff INH Q4H PRN PRN Reason: SOB/WHEEZING Duloxetine HCl (Cymbalta Cap*) 60 mg PO BEDTIME [facility] Last Admin: 11/09/19 20:52 Dose: 60 mg Sodium Chloride (Ns 0.9% 1000 Ml) 1,000 mls @ 100 mls/hr IV PER RATE [facility] Last Admin: 11/10/19 04:50 Dose: 100 mls/hr Pantoprazole Sodium (Protonix Iv Bag*) 80 mg in 250 mls @ 25 mls/hr IV Q10H [facility] Last Admin: 11/10/19 09:29 Dose: 25 mls/hr Methadone HCl (Dolophine Tab*) 70 mg PO DAILY [facility] Last Admin: 11/10/19 09:27 Dose: 70 mg Fluticasone/Salmeterol (Advair Diskus 250-50*) 1 puff INH DAILY [facility] Last Admin: 11/10/19 07:58 Dose: Not Given Vital Signs - 8 hr 11/10/19 11/10/19 11/10/19 07:23 07:50 09:27 Temperature 98.2 F Pulse Rate 84 Respiratory 18 18 18 Rate Blood Pressure 127/64 (mmHg) O2 Sat by Pulse 90 Oximetry Oxygen Devices in Use Now: None Appearance: Thin, elderly white male, laying in bed, appearing uncomfortable but in NAD Eyes: No Scleral Icterus, - - PERRL Ears/Nose/Mouth/Throat: Mucous Membranes Moist Neck: Trachea Midline Respiratory: Symmetrical Chest Expansion and Respiratory Effort, Clear to Auscultation Cardiovascular: NL Sounds; No Murmurs; No JVD, RRR Abdominal: - - abd soft, nontender, nondistended; colostomy bag with very hard, black stool Extremities: No Edema, No Clubbing, Cyanosis Skin: No Rash or Ulcers Neurological: Alert and Oriented x 3 Result Diagrams: 11/10/19 14:43 11/10/19 06:05 Microbiology and Other Data: Microbiology 11/09/19 11:04 Stool Occult Blood (JONH) - Final Stool Assess/Plan/Problems-Billing Assessment: 69 yo white male with PMHx asthma, anxiety/depression, migraines, and colostomy s/p sigmoid colectomy presents with SOB, palpitations, and melena. - Patient Problems (1) Acute blood loss anemia Current Visit: Yes Status: Resolved Code(s): D62 - ACUTE POSTHEMORRHAGIC ANEMIA SNOMED Code(s): 033776764 Comment: -presenting with symptomatic anemia, hgb dropped to 7.4 from baseline hgb 14 ( recorded last month) -likely 2/2 GIB, further information below -received 1U PRBC 11/09/19 -H&H stable today (2) GI bleed Current Visit: Yes Status: Acute Code(s): K92.2 - GASTROINTESTINAL HEMORRHAGE, UNSPECIFIED SNOMED Code(s): 98443977 Comment: -presented with melenic output from colostomy and SOB with exertion, found to have anemia -suspected GI bleed given EGD findings of duodenal ulcers, but not active bleeding per Dr. Nora Gibson -she did note some duodenal inflammation that is blocking a motile food bolus, but was unable to scope past this so an actively bleeding ulcer cannot be ruled out -will continue BID IV ppx and H&H checks, continue to monitor -still with melena today -clear liquid diet today and soft diet tomorrow due to large, undigested food bolus on EGD (3) Influenza B Current Visit: Yes Status: Acute Code(s): J10.1 - FLU DUE TO OTH IDENT INFLUENZA VIRUS W OTH RESP MANIFEST SNOMED Code(s): 08747493 Comment: -tested positive today -c/o sore throat and body aches -afebrile -starting tamiflu 75mg BID (4) Anxiety Current Visit: Yes Status: Acute Code(s): F41.9 - ANXIETY DISORDER, UNSPECIFIED SNOMED Code(s): 56742192 Comment: -continue duloxetine (5) Asthma Current Visit: No Status: Acute Code(s): J45.909 - UNSPECIFIED ASTHMA, UNCOMPLICATED SNOMED Code(s): 541429478 Comment: -prn albuterol (6) History of heroin use Current Visit: Yes Status: Acute Code(s): Z87.898 - PERSONAL HISTORY OF OTHER SPECIFIED CONDITIONS SNOMED Code(s): 948568405 Comment: -continue methadone (7) Chronic migraine Current Visit: No Status: Acute Code(s): G43.709 - CHRONIC MIGRAINE W/O AURA , NOT INTRACTABLE, W/O STAT MIGR SNOMED Code(s): 754464965 Comment: -uses frequent NSAIDs for chronic migraines, discussed need to d/c NSAID use (8) DVT prophylaxis Current Visit: No Status: Acute Code(s): LAU2770 - SNOMED Code(s): 233217965 Comment: -SCDs -chemoprophylaxis contraindicated in the setting of GIB (9) Full code status Current Visit: No Status: Acute Code(s): Z78.9 - OTHER SPECIFIED HEALTH STATUS SNOMED Code(s): 853452610 Status and Disposition: inpatient for further mgmt
[2019-11-10] MEDS ORDERED: fentaNYL* 50 MCG/ML 2 ML VIAL (100 MCG VIAL) ONE (11:49)
[2019-11-10] MEDS ORDERED: Midazolam* 1 MG/ML 10 ML VIAL (10 MG) ONE (11:50)
[2019-11-10] MEDS ORDERED: diPHENhydraMINE IV* 50 MG/ML 1 ml VIAL (BENADRYL) ONE (12:19)
--- NOTE | 2019-11-10 14:09 | PRO ---
CC: ISAIAH Martinez; Dr. Shazia Domingo * DATE OF PROCEDURE: 11/10/19 - ROOM #411 PROCEDURE: EGD with biopsy. REFERRING PROVIDER: ISAIAH Martinez PRIMARY CARE PROVIDER: Dr. Shazia Domingo. INDICATION: The patient presents with acute anemia compared to labs last month. Possible darker stool in ostomy. Uses Excedrin daily. Received a unit of blood yesterday for blood count that was drifting down. Remains quite symptomatic still with shortness of breath with minimal exertion. MEDICATIONS GIVEN: 1. Midazolam 5 mg IV. 2. Fentanyl 50 mcg IV. 3. Benadryl 25 mg IV. DESCRIPTION OF PROCEDURE: Full disclosure of risks was reviewed with the patient as detailed on the consent form. The patient was placed in the left lateral decubitus position and monitored with continuous pulse oximetry, capnography, interval blood pressure monitoring, and direct observation. A bite -block was placed between the patient's teeth. An adult gastroscope was then inserted into the patient's mouth and advanced down the esophagus, into the stomach, and into the mid duodenum. Findings and interventions are described below. FINDINGS: Esophagus was a normal tubular structure without rings or strictures. GE junction was mildly irregular and occurred at 43 cm. No esophagitis. Scope was easily advanced into the stomach. Stomach was examined in the forward and retroflex views. There was no fresh or old blood. Gastric mucosa was normal in appearance. No erythema, erosions, or ulcers. Scope was then advanced into the duodenal bulb. In the bulb, there was a small ulcer as well as a medium to large ulcer. These were both clean-based. There was also a large piece of food debris in the duodenal bulb. The scope was slowly tried to advance into the duodenal sweep. There seemed to be luminal narrowing and edematous mucosa. There was a large clean-based ulcer seen in the visualized portions of the duodenal sweep. Given the difficulty in advancing forward due to edema as well as the presence of the ulcer, I elected not to try to push through the mid duodenum. Scope was then withdrawn back into the stomach. Biopsy was obtained from the antrum for CLOtest. Scope was then withdrawn from the patient. The patient tolerated the procedure well and was recovered in the GI recovery area. IMPRESSION: 1. Upper endoscopy to the mid duodenum. 2. Three ulcers seen in the D1/D2. 3. Significant edema and luminal narrowing in the duodenal sweep likely related to ulceration. I did not feel comfortable advancing the scope through this narrowed area particularly given the presence of a large ulcer along the inferior wall of D2. There was some food debris in this area suggesting that perhaps there might be some partial obstructive symptoms related to this edema and ulceration. Interestingly, the patient denies any clinical symptoms. FOLLOWUP: 1. Await pathology to rule out CLOtest. I favor NSAIDs as opposed to H. pylori as a cause of the duodenal ulcerations. 2. Continue IV PPI b.i.d. 3. Clear diet for now. If hemodynamically stable and without upper GI symptoms , then the patient could potentially be advanced to a soft diet tomorrow. 4. Continue to monitor CBC every 8 to 12 hours. 5. Avoid NSAIDs. 6. We would recommend a repeat EGD in 2 months to reassess for healing given the incomplete examination of the mid and distal duodenum. We will arrange his followup. Thank you very much for the consult. [id number]/[facility] #: [id number] JACKLYN
--- NOTE | 2019-11-10 14:34 | CONS ---
CC: ISAIAH Martinez; Dr. Shazia Domingo * GASTROENTEROLOGY CONSULT REPORT: DATE OF CONSULT: 11/10/19 REQUESTING PROVIDER: ISAIAH Martinez PRIMARY CARE PROVIDER: Dr. Shazia Domingo. REASON FOR CONSULT: Anemia. HISTORY OF PRESENT ILLNESS: Mr. Macias is a 69-year-old gentleman with multiple medical conditions including anxiety/depression; migraines; asthma; diverticulitis, status post sigmoid resection with colostomy; and polysubstance abuse, on methadone, who is admitted with significant dyspnea on exertion and palpitations. The patient's symptoms began on Monday. He noticed shortness of breath particularly with minimal exertion. Also noticed palpitations. Has been having mild sore throat and dry nonproductive cough. Also complaining of myalgias. His output in the ostomy bag has been unchanged in consistency and amount, although he feels that it has been a bit darker recently. Described seeing almost black stool material. No dark or bright red blood seen in the bag. He denies any reflux symptoms, nausea, vomiting, dysphagia, abdominal pain. No history of ulcers. Reports using Excedrin daily for migraines and headaches. Referred to the ED for evaluation. In the ED, the patient was hemodynamically stable. Labs notable for a hemoglobin of 8.8, which is down from 13.5 on 10/09/19. Repeat blood count dropped to 7.4 and 22. Given the drop and significant dyspnea presumably related to the anemia, the patient was given 1 unit of blood. Subsequent blood counts have been stable to improving. Hemoglobin 8.1, then 8.5, then 8.7. GI consulted. PAST MEDICAL HISTORY: 1. Asthma. 2. Migraines. 3. Anxiety/depression. 4. Diverticulitis, requiring colonic resection. 5. History of C. diff several years ago. 6. History of polysubstance abuse, on methadone. PAST SURGICAL HISTORY: 1. Sigmoid colectomy with diverting colostomy in 2016. He has recently been talking with Dr. Olivia about takedown of the ostomy. 2. Cystoscopy. 3. Nasal surgery x3. HOME MEDICATIONS: 1. Methadone 70 mg daily. 2. Advair 250/50 one daily. 3. Cymbalta 60 mg at bedtime. 4. Albuterol as needed. 5. Tylenol as needed. 6. Excedrin 1 to 2 tabs p.r.n. although he uses this daily. ALLERGIES: REGLAN and COMPAZINE. FAMILY HISTORY: No known GI or liver disease. SOCIAL HISTORY: Former smoker. Quit remotely. History of polysubstance abuse with a relapse of IV heroin in March 2019. No significant alcohol use recently. REVIEW OF SYSTEMS: A 12-point review of systems negative except as mentioned above. Of note, the patient asked for a flu test as he describes feeling flu- like symptoms. PHYSICAL EXAM: Vital Signs: Afebrile, although temp 99.7 in the endo unit. Heart rate in the 80s, blood pressure 127/64, 93% to 94% on room air. General: Pale gentleman. No acute distress. HEENT: Mucous membranes moist. Cardiovascular: Regular rate and rhythm. Lungs are clear, although mild rhonchorous sounds in lower lung bases. No wheezing. Abdomen: Soft, nontender, nondistended. Ostomy in the left lower quadrant. Bag is opaque with a small amount of liquid stool. Bag was not taken down to evaluate the stool color or the stoma. Extremities: No edema. Skin: Pale without rashes on examined areas of the skin. Neuro: A and O x3. No gross neuro deficits. DIAGNOSTIC STUDIES/LAB DATA: Labs reviewed. Hemoglobin 8.8 on admission down from 13.5 a month ago. He dropped to 7.4 and 22 yesterday and was given a unit of blood. Most recent hemoglobin went from 8.5 to 8.7. MCV is 89. INR is normal. BUN and creatinine 21 and 0.93 respectively on admission. Stool occult positive. Imaging: Chest x-ray on admission was negative for acute findings. IMPRESSION AND RECOMMENDATIONS: Mr. Macias is a 69-year-old gentleman with asthma; migraines, on daily NSAID; diverticulitis, status post sigmoid colonic resection with colostomy; and polysubstance abuse, on methadone, who is admitted with acute presumably blood loss anemia and significant dyspnea felt to be related to the anemia. The patient is hemodynamically stable. H and Hs certainly down quite a bit from last month arguing for an acute bleed. It does not appear that the patient is having ongoing active bleeding, so I suspect he has either had a large bleed that had stopped spontaneously or slow continuous bleed. His NSAID use places him at risk for peptic ulcer disease. We will plan for upper endoscopy to evaluate for bleeding source. Agree with continued IV PPI. N.p.o. for procedure. NSAIDs are being held. Thank you very much for this consult. [id number]/[facility] #: [id number] JACKLYN
[2019-11-10 14:41] LABS: Influenza B Molecular POSITIVE (Negative)
[2019-11-10 14:52] LABS: Hematocrit 26 % (42-52); Hemoglobin 8.7 g/dL (14.0-18.0); Mean Platelet Volume 6.9 fL (7.4-10.4); Platelet Count 194 10^3/uL (150-450)
[2019-11-10] MEDS: Cetirizine* 10 MG TAB PO SCH (14:59)
[2019-11-10] MEDS: Oseltamivir CAP* 75 MG CAP PO SCH (15:00)
[2019-11-10] MEDS: DULoxetine DR CAP* 60 MG CAP.DR PO SCH (20:30)
[2019-11-10] MEDS: Pantoprazole IV* 40 MG IV SCH (20:30)
[2019-11-10 22:12] LABS: Hematocrit 24 % (42-52); Hemoglobin 8.1 g/dL (14.0-18.0)
[2019-11-11 04:16] LABS: ABS Lymphocytes 0.6 10^3/ul (1.0-4.8); ABS Monocytes 0.5 10^3/ul (0-0.8); ABS Neutrophils 3.2 10^3/ul (1.5-7.7); Eosinophil % 0.1 %; Hematocrit 25 % (42-52); Hemoglobin 8.3 g/dL (14.0-18.0); Lymphocyte % 14.4 %; Mean Corpuscular HGB Conc 34 g/dL (31-36); Mean Corpuscular Hemoglobin 30 pg (27-31); Mean Corpuscular Volume 88 fL (80-94); Mean Platelet Volume 6.9 fL (7.4-10.4); Platelet Count 178 10^3/uL (150-450); Red Blood Count 2.82 10^6 /uL (4.18-5.48); Red Cell Distribution Width 15 % (10-15); White Blood Count 4.4 10^3/uL (3.5-10.8)
[2019-11-11] MEDS: Acetaminophen TAB* 325 MG PO PRN ×3 (04:29→21:29)
[2019-11-11] MEDS: Benzocaine/Menthol LOZ* 1 LOZENGE MT PRN (04:42)
[2019-11-11] MEDS: Fluticasone-Salmeterol 250-50* DISKUS INH SCH (07:17)
--- NOTE | 2019-11-11 08:21 | PN ---
Progress Note - Progress Note Date of Service: 11/11/19 Note: pt seen and examined; feels weak; tolerating clears no other sx or complaints VS: 97.9, 130/60, 86, 15 nad, alert +bs, soft, nt HGB 8.3<-----8.1, 8.7 large DU with edema, no obstruction sx on clears, will advance to full liquids, continue with PPI GI to follow outpt GI: Dr. Elliott Yee MD
[2019-11-11] MEDS: Cetirizine* 10 MG TAB PO SCH (08:37)
[2019-11-11] MEDS: Pantoprazole IV* 40 MG IV SCH ×2 (08:37→21:28)
[2019-11-11] MEDS: Oseltamivir CAP* 75 MG CAP PO SCH ×2 (08:38→21:30)
[2019-11-11] MEDS: Methadone TAB* 10 MG PO SCH (08:59)
--- NOTE | 2019-11-11 13:00 | PN ---
Subjective Date of Service: 11/11/19 Interval History: Reports feeling poorly. still hoarse.sob improving. Family History: Unchanged from Admission Social History: Unchanged from Admission Past Medical History: Unchanged from Admission Objective Active Medications: Acetaminophen (Tylenol Tab*) 650 mg PO Q4H PRN PRN Reason: MILD PAIN or TEMP > 100.4 Last Admin: 11/11/19 04:29 Dose: 650 mg Albuterol (Ventolin Hfa Inhaler*) 2 puff INH Q4H PRN PRN Reason: SOB/WHEEZING Cetirizine HCl (Zyrtec*) 10 mg PO DAILY [facility] Last Admin: 11/11/19 08:37 Dose: 10 mg Duloxetine HCl (Cymbalta Cap*) 60 mg PO BEDTIME [facility] Last Admin: 11/10/19 20:30 Dose: 60 mg Methadone HCl (Dolophine Tab*) 70 mg PO DAILY [facility] Last Admin: 11/11/19 08:59 Dose: 70 mg Oseltamivir Phosphate (Tamiflu Cap*) 75 mg PO 09,2100 [facility] Stop: 11/15/19 09:01 Last Admin: 11/11/19 08:38 Dose: 75 mg Pantoprazole Sodium (Protonix Iv*) 40 mg IV BID [facility] Last Admin: 11/11/19 08:37 Dose: 40 mg Fluticasone/Salmeterol (Advair Diskus 250-50*) 1 puff INH DAILY [facility] Last Admin: 11/11/19 07:17 Dose: 1 puff Throat Lozenges (Chloraseptic Kemi*) 1 kemi MT Q6H PRN PRN Reason: SORE THROAT Last Admin: 11/11/19 04:42 Dose: 1 kemi Vital Signs - 8 hr 11/11/19 11/11/19 11/11/19 07:36 08:00 08:59 Temperature 97.9 F Pulse Rate 86 Respiratory 15 18 16 Rate Blood Pressure 130/60 (mmHg) O2 Sat by Pulse 92 Oximetry Oxygen Devices in Use Now: None Eyes: No Scleral Icterus Ears/Nose/Mouth/Throat: NL Teeth, Lips, Gums Neck: NL Appearance and Movements; NL JVP Respiratory: Symmetrical Chest Expansion and Respiratory Effort Cardiovascular: NL Sounds; No Murmurs; No JVD Abdominal: NL Sounds; No Tenderness; No Distention Extremities: No Edema Skin: No Rash or Ulcers Neurological: Alert and Oriented x 3 Result Diagrams: 11/11/19 04:06 11/10/19 06:05 Microbiology and Other Data: Microbiology 11/09/19 11:04 Stool Occult Blood (JONH) - Final Stool Assess/Plan/Problems-Billing Assessment: 69 yo white male with PMHx asthma, anxiety/depression, migraines, and colostomy s/p sigmoid colectomy presents with SOB, palpitations, and melena. - Patient Problems (1) Anxiety Current Visit: Yes Status: Acute Code(s): F41.9 - ANXIETY DISORDER, UNSPECIFIED SNOMED Code(s): 95992767 Comment: -continue duloxetine (2) GI bleed Current Visit: Yes Status: Acute Code(s): K92.2 - GASTROINTESTINAL HEMORRHAGE, UNSPECIFIED SNOMED Code(s): 64591759 Comment: -presented with melenic output from colostomy and SOB with exertion, found to have anemia -suspected GI bleed given EGD findings of duodenal ulcers, but not active bleeding per Dr. Nora Gibson -she did note some duodenal inflammation that is blocking a motile food bolus, but was unable to scope past this so an actively bleeding ulcer cannot be ruled out -will continue BID IV ppx and H&H checks, continue to monitor -still with melena today -clear liquid diet to full diet today due to large, undigested food bolus on EGD (3) Influenza B Current Visit: Yes Status: Acute Code(s): J10.1 - FLU DUE TO OTH IDENT INFLUENZA VIRUS W OTH RESP MANIFEST SNOMED Code(s): 31591895 Comment: -tested positive -c/o sore throat and body aches -afebrile -starting tamiflu 75mg BID (4) History of heroin use Current Visit: Yes Status: Acute Code(s): Z87.898 - PERSONAL HISTORY OF OTHER SPECIFIED CONDITIONS SNOMED Code(s): 921689220 Comment: -continue methadone (5) Melena Current Visit: Yes Status: Acute Code(s): K92.1 - MELENA SNOMED Code(s): 1768586 Comment: -sec GI bleed -Improved (6) Asthma Current Visit: No Status: Acute Code(s): J45.909 - UNSPECIFIED ASTHMA, UNCOMPLICATED SNOMED Code(s): 705776895 Comment: -prn albuterol Status and Disposition: inpatient for further mgmt.Full liq.Advance to soft in am if tolerated.Oximetry on a mbulation.possible d/c in am if improved
[2019-11-11] MEDS: DULoxetine DR CAP* 60 MG CAP.DR PO SCH (21:30)
[2019-11-12 06:23] LABS: ABS Eosinophils 0.1 10^3/ul (0-0.6); ABS Lymphocytes 0.6 10^3/ul (1.0-4.8); ABS Monocytes 0.5 10^3/ul (0-0.8); ABS Neutrophils 2.7 10^3/ul (1.5-7.7); Eosinophil % 1.3 %; Hematocrit 28 % (42-52); Hemoglobin 9.3 g/dL (14.0-18.0); Lymphocyte % 14.9 %; Mean Corpuscular HGB Conc 34 g/dL (31-36); Mean Corpuscular Hemoglobin 29 pg (27-31); Mean Corpuscular Volume 87 fL (80-94); Mean Platelet Volume 7.1 fL (7.4-10.4); Nucleated Red Blood Cells % 0.1; Platelet Count 194 10^3/uL (150-450); Red Blood Count 3.19 10^6 /uL (4.18-5.48); Red Cell Distribution Width 14 % (10-15); White Blood Count 3.9 10^3/uL (3.5-10.8)
[2019-11-12 06:43] LABS: BUN/Creatinine Ratio 17.8 (8-20); Calcium 8.4 mg/dL (8.6-10.3); EGFR African American 129.7 (>60); EGFR Non-African American 107.2 (>60); Potassium 3.3 mmol/L (3.5-5.0)
[2019-11-12] MEDS: Oseltamivir CAP* 75 MG CAP PO SCH ×2 (07:51→21:39)
[2019-11-12] MEDS: Pantoprazole IV* 40 MG IV SCH (07:51)
[2019-11-12] MEDS: Cetirizine* 10 MG TAB PO SCH (07:51)
[2019-11-12] MEDS: Fluticasone-Salmeterol 250-50* DISKUS INH SCH (08:08)
[2019-11-12] MEDS: Methadone TAB* 10 MG PO SCH (10:18)
[2019-11-12] MEDS: KCL 20 MEQ/100 ML IVPREMIX* 20 MEQ/100 ML BAG IV SCH ×2 (10:20→17:42)
[2019-11-12] MEDS: Acetaminophen TAB* 325 MG PO PRN ×2 (11:12→16:40)
[2019-11-12] MEDS ORDERED: KCL 20 MEQ/100 ML IVPREMIX* 20 MEQ/100 ML BAG IV ONE (17:00)
--- NOTE | 2019-11-12 17:31 | PN ---
Subjective Date of Service: 11/12/19 Interval History: Mr. Macias states that he is feeling poorly today. He states that he has body aches, sweats without chills. He c/o cough. He had 1 bout of melena within the last 24h; denies abd pain, n/v/d. He states that he has decreased PO intake , as he is not offered much food and states that he is eager to eat more. No other complaints today. Family History: Unchanged from Admission Social History: Unchanged from Admission Past Medical History: Unchanged from Admission Objective Active Medications: Acetaminophen (Tylenol Tab*) 650 mg PO Q4H PRN PRN Reason: MILD PAIN or TEMP > 100.4 Last Admin: 11/12/19 16:40 Dose: 650 mg Albuterol (Ventolin Hfa Inhaler*) 2 puff INH Q4H PRN PRN Reason: SOB/WHEEZING Cetirizine HCl (Zyrtec*) 10 mg PO DAILY [facility] Last Admin: 11/12/19 07:51 Dose: 10 mg Duloxetine HCl (Cymbalta Cap*) 60 mg PO BEDTIME [facility] Last Admin: 11/11/19 21:30 Dose: 60 mg Potassium Chloride (Potassium Chloride 20 Meq/100 Ml Ivpremix*) 20 meq in 100 mls @ 50 mls/hr IV ONCE ONE Stop: 11/12/19 18:59 Last Admin: 11/12/19 16:35 Dose: 50 mls/hr Methadone HCl (Dolophine Tab*) 70 mg PO DAILY [facility] Last Admin: 11/12/19 10:18 Dose: 70 mg Oseltamivir Phosphate (Tamiflu Cap*) 75 mg PO 0900,2100 [facility] Stop: 11/15/19 09:01 Last Admin: 11/12/19 07:51 Dose: 75 mg Pantoprazole Sodium (Protonix Tab*) 40 mg PO BID [facility] Fluticasone/Salmeterol (Advair Diskus 250-50*) 1 puff INH DAILY [facility] Last Admin: 11/12/19 08:08 Dose: 1 puff Throat Lozenges (Chloraseptic Kemi*) 1 kemi MT Q6H PRN PRN Reason: SORE THROAT Last Admin: 11/11/19 04:42 Dose: 1 kemi Vital Signs: Temp Pulse Resp BP Pulse Ox 97.9 F 81 18 131/73 96 11/12/19 11:15 11/12/19 11:15 11/12/19 12:48 11/12/19 11:15 11/12/19 11:15 Oxygen Devices in Use Now: None Appearance: Mr. Macias is a pale, older white male who appears acutely ill; no acute distress, no respiratory distress. Eyes: No Scleral Icterus, PERRLA Ears/Nose/Mouth/Throat: NL Teeth, Lips, Gums, Clear Oropharnyx, Mucous Membranes Moist Neck: NL Appearance and Movements; NL JVP, Trachea Midline Respiratory: Symmetrical Chest Expansion and Respiratory Effort, - - end expiratory wheezing, without rhonchi, rales Cardiovascular: NL Sounds; No Murmurs; No JVD, RRR, No Edema Abdominal: NL Sounds; No Tenderness; No Distention, No Hepatosplenomegaly, - - LLQ colostomy intact and in place with small amount of output Extremities: No Edema, No Clubbing, Cyanosis Neurological: Alert and Oriented x 3 Result Diagrams: 11/12/19 05:35 11/12/19 05:35 Microbiology and Other Data: Microbiology 11/09/19 11:04 Stool Occult Blood (JONH) - Final Stool Assess/Plan/Problems-Billing Assessment: 69 yo white male with PMHx asthma, anxiety/depression, migraines, and colostomy s/p sigmoid colectomy presents with SOB, palpitations, and melena and is found to have GI bleeding due to ulcers and influenza. - Patient Problems (1) GI bleed Comment: -presented with melenic output from colostomy and SOB with exertion, found to have anemia -suspected GI bleed given EGD findings of duodenal ulcers, but not active bleeding per Dr. Nora Gibson -she did note some duodenal inflammation that is blocking a motile food bolus, but was unable to scope past this so an actively bleeding ulcer cannot be ruled out -will continue BID PPI, transition to PO -continue to monitor H&H -still with melena today -advance to soft today (2) Influenza B Comment: -influenza B positive -c/o sore throat and body aches -afebrile -continue tamiflu 75mg BID (3) Chronic migraine Comment: -uses frequent NSAIDs for chronic migraines -discussed need to d/c NSAID use in setting up GI bleed (4) Anxiety Comment: -continue duloxetine (5) Asthma Comment: -advair diskus -prn albuterol (6) History of heroin use Comment: -continue methadone (7) DVT prophylaxis Comment: -SCDs -chemoprophylaxis contraindicated in the setting of GIB (8) Full code status Status and Disposition: Inpatient. Discharge when stable.
[2019-11-12] MEDS: Pantoprazole TAB * 40 MG TAB PO SCH (21:39)
[2019-11-12] MEDS: DULoxetine DR CAP* 60 MG CAP.DR PO SCH (21:39)
[2019-11-13] MEDS: Acetaminophen TAB* 325 MG PO PRN ×2 (03:32→21:21)
[2019-11-13 06:01] LABS: BUN/Creatinine Ratio 14.3 (8-20); Calcium 8.3 mg/dL (8.6-10.3); EGFR African American 121.9 (>60); EGFR Non-African American 100.8 (>60)
[2019-11-13] MEDS: Fluticasone-Salmeterol 250-50* DISKUS INH SCH (08:43)
[2019-11-13] MEDS: Cetirizine* 10 MG TAB PO SCH (09:11)
[2019-11-13] MEDS: Oseltamivir CAP* 75 MG CAP PO SCH ×2 (09:11→21:21)
[2019-11-13] MEDS: Pantoprazole TAB * 40 MG TAB PO SCH ×2 (09:11→21:21)
[2019-11-13] MEDS: Methadone TAB* 10 MG PO SCH (09:12)
[2019-11-13 10:17] LABS: ABS Eosinophils 0.1 10^3/ul (0-0.6); ABS Lymphocytes 0.9 10^3/ul (1.0-4.8); ABS Monocytes 0.5 10^3/ul (0-0.8); ABS Neutrophils 2.1 10^3/ul (1.5-7.7); Eosinophil % 1.6 %; Hematocrit 29 % (42-52); Hemoglobin 9.8 g/dL (14.0-18.0); Lymphocyte % 25.6 %; Mean Corpuscular HGB Conc 34 g/dL (31-36); Mean Corpuscular Hemoglobin 30 pg (27-31); Mean Corpuscular Volume 87 fL (80-94); Mean Platelet Volume 7.9 fL (7.4-10.4); Nucleated Red Blood Cells % 0.1; Platelet Count 211 10^3/uL (150-450); Red Blood Count 3.29 10^6 /uL (4.18-5.48); Red Cell Distribution Width 14 % (10-15); White Blood Count 3.5 10^3/uL (3.5-10.8)
--- NOTE | 2019-11-13 10:19 | PN ---
Subjective Date of Service: 11/13/19 Interval History: Mr. Macias states he is feeling unwell today. He c/o dizziness/LH, SOB with ambulation. He reports that his lungs feel congested. He has been tolerating a soft diet well without n/v/abd pain. He denies CP. No other complaints today. Family History: Unchanged from Admission Social History: Unchanged from Admission Past Medical History: Unchanged from Admission Objective Active Medications: Acetaminophen (Tylenol Tab*) 650 mg PO Q4H PRN PRN Reason: MILD PAIN or TEMP > 100.4 Last Admin: 11/13/19 03:32 Dose: 650 mg Albuterol (Ventolin 2.5 Mg/3 Ml Neb.Ivy*) 2.5 mg INH [id number] AWAKE [facility] Cetirizine HCl (Zyrtec*) 10 mg PO DAILY [facility] Last Admin: 11/13/19 09:11 Dose: 10 mg Duloxetine HCl (Cymbalta Cap*) 60 mg PO BEDTIME [facility] Last Admin: 11/12/19 21:39 Dose: 60 mg Methadone HCl (Dolophine Tab*) 70 mg PO DAILY [facility] Last Admin: 11/13/19 09:12 Dose: 70 mg Oseltamivir Phosphate (Tamiflu Cap*) 75 mg PO 899,2099 [facility] Stop: 11/15/19 09:01 Last Admin: 11/13/19 09:11 Dose: 75 mg Pantoprazole Sodium (Protonix Tab*) 40 mg PO BID [facility] Last Admin: 11/13/19 09:11 Dose: 40 mg Prednisone (Deltasone 20 Mg Tab) 40 mg PO DAILY [facility] Fluticasone/Salmeterol (Advair Diskus 250-50*) 1 puff INH DAILY [facility] Last Admin: 11/13/19 08:43 Dose: 1 puff Throat Lozenges (Chloraseptic Kemi*) 1 kemi MT Q6H PRN PRN Reason: SORE THROAT Last Admin: 11/11/19 04:42 Dose: 1 kemi Vital Signs: Temp Pulse Resp BP Pulse Ox 98 F 85 18 149/79 96 11/13/19 03:47 11/13/19 08:49 11/13/19 09:12 11/13/19 03:47 11/13/19 08:49 Oxygen Devices in Use Now: Nasal Cannula Appearance: Mr. Macias is an older middle-aged white male who is sitting up in bed. He appears acutely ill; is breathing comfortably on room air. Eyes: No Scleral Icterus, PERRLA Ears/Nose/Mouth/Throat: NL Teeth, Lips, Gums, Clear Oropharnyx, Mucous Membranes Moist Neck: NL Appearance and Movements; NL JVP, Trachea Midline Respiratory: Symmetrical Chest Expansion and Respiratory Effort, - - diminished breath sounds and end expiratory wheezing throughout b/l lung burroughs Abdominal: NL Sounds; No Tenderness; No Distention, No Hepatosplenomegaly, - - colostomy in place to LLQ Extremities: No Edema, No Clubbing, Cyanosis Neurological: Alert and Oriented x 3 Result Diagrams: 11/13/19 05:31 11/13/19 05:31 Microbiology and Other Data: Microbiology 11/09/19 11:04 Stool Occult Blood (JONH) - Final Stool Assess/Plan/Problems-Billing Assessment: 69 yo white male with PMHx asthma, anxiety/depression, migraines, and colostomy s/p sigmoid colectomy presents with SOB, palpitations, and melena and is found to have GI bleeding due to ulcers and influenza. - Patient Problems (1) Asthma Comment: -end expiratory wheeze throughout b/l lung burroughs -CXR pending -low suspicion for pna- pt without leukocytosis, fever -susepct asthma exacerbation -round the clock nebulizers -continue advair diskus -no steroids in setting of recent GIB from ulcer (2) GI bleed Comment: -presented with melenic output from colostomy and SOB with exertion, found to have anemia -suspected GI bleed given EGD findings of duodenal ulcers, but not active bleeding per Dr. Nora Gibson -she did note some duodenal inflammation that is blocking a motile food bolus, but was unable to scope past this so an actively bleeding ulcer cannot be ruled out -will continue BID PPI PO -continue to monitor H&H- trending up -still with melena today -tolerating soft diet- will continue (3) Influenza B Comment: -influenza B positive -c/o sore throat and body aches -afebrile -continue tamiflu 75mg BID (4) Chronic migraine Comment: -uses frequent NSAIDs for chronic migraines -discussed need to d/c NSAID use in setting up GI bleed (5) Anxiety Comment: -continue duloxetine (6) History of heroin use Comment: -continue methadone (7) DVT prophylaxis Comment: -SCDs -chemoprophylaxis contraindicated in the setting of GIB (8) Full code status Status and Disposition: Inpatient. Discharge when stable.
[2019-11-13] MEDS ORDERED: methylPREDNISolone SOD 40 MG* 1 ML VIAL IV SCH (11:00)
[2019-11-13] MEDS ORDERED: Albuterol 2.5 MG/3 ML NEB.SOL* (0.083%) INH SCH ×2 (11:00→15:00)
[2019-11-13] MEDS ORDERED: Albuterol 2.5 MG/3 ML NEB.SOL* (0.083%) INH PRN (13:20)
[2019-11-13] MEDS: Albuterol 2.5 MG/3 ML NEB.SOL* (0.083%) INH SCH (20:31)
[2019-11-13] MEDS: DULoxetine DR CAP* 60 MG CAP.DR PO SCH (21:21)
[2019-11-13] MEDS: Benzocaine/Menthol LOZ* 1 LOZENGE MT PRN (21:21)
[2019-11-14] MEDS: Albuterol 2.5 MG/3 ML NEB.SOL* (0.083%) INH SCH (02:31)
[2019-11-14] MEDS: Acetaminophen TAB* 325 MG PO PRN ×2 (05:44→10:48)
[2019-11-14 06:25] LABS: ABS Lymphocytes 0.6 10^3/ul (1.0-4.8); ABS Monocytes 0.4 10^3/ul (0-0.8); ABS Neutrophils 2.7 10^3/ul (1.5-7.7); Hematocrit 27 % (42-52); Hemoglobin 9.4 g/dL (14.0-18.0); Lymphocyte % 15.5 %; Mean Corpuscular HGB Conc 34 g/dL (31-36); Mean Corpuscular Hemoglobin 30 pg (27-31); Mean Corpuscular Volume 86 fL (80-94); Mean Platelet Volume 7.1 fL (7.4-10.4); Platelet Count 224 10^3/uL (150-450); Red Blood Count 3.19 10^6 /uL (4.18-5.48); Red Cell Distribution Width 14 % (10-15); White Blood Count 3.7 10^3/uL (3.5-10.8)
[2019-11-14] MEDS: Fluticasone-Salmeterol 250-50* DISKUS INH SCH (08:24)
[2019-11-14] MEDS: Methadone TAB* 10 MG PO SCH (10:37)
[2019-11-14] MEDS: Cetirizine* 10 MG TAB PO SCH (10:38)
[2019-11-14] MEDS: Oseltamivir CAP* 75 MG CAP PO SCH ×2 (10:38→21:48)
[2019-11-14] MEDS: Pantoprazole TAB * 40 MG TAB PO SCH ×2 (10:39→21:48)
[2019-11-14] MEDS ORDERED: Furosemide IV* 10 MG/ML 2 ML VIAL (20 MG) IV ONE (13:15)
--- NOTE | 2019-11-14 17:55 | PN ---
Subjective Date of Service: 11/14/19 Interval History: Mr. Macias states that he has had MAURICIO. He reports that he has no dark output from colostomy. He denies recent travel, leg trauma. No other complaints today. Mr. Macias was seen later, and reports improvement in dyspnea with lasix dose. Family History: Unchanged from Admission Social History: Unchanged from Admission Past Medical History: Unchanged from Admission Objective Active Medications: Acetaminophen (Tylenol Tab*) 650 mg PO Q4H PRN PRN Reason: MILD PAIN or TEMP > 100.4 Last Admin: 11/14/19 10:48 Dose: 650 mg Albuterol (Ventolin 2.5 Mg/3 Ml Neb.Ivy*) 2.5 mg INH [id number] AWAKE PRN PRN Reason: scheduled order already exists Cetirizine HCl (Zyrtec*) 10 mg PO DAILY [facility] Last Admin: 11/14/19 10:38 Dose: 10 mg Duloxetine HCl (Cymbalta Cap*) 60 mg PO BEDTIME [facility] Last Admin: 11/13/19 21:21 Dose: 60 mg Methadone HCl (Dolophine Tab*) 70 mg PO DAILY [facility] Last Admin: 11/14/19 10:37 Dose: 70 mg Oseltamivir Phosphate (Tamiflu Cap*) 75 mg PO 0900,2100 [facility] Stop: 11/15/19 09:01 Last Admin: 11/14/19 10:38 Dose: 75 mg Pantoprazole Sodium (Protonix Tab*) 40 mg PO BID [facility] Last Admin: 11/14/19 10:39 Dose: 40 mg Fluticasone/Salmeterol (Advair Diskus 250-50*) 1 puff INH DAILY [facility] Last Admin: 11/14/19 08:24 Dose: 1 puff Throat Lozenges (Chloraseptic Kemi*) 1 kemi MT Q6H PRN PRN Reason: SORE THROAT Last Admin: 11/13/19 21:21 Dose: 1 kemi Vital Signs: Temp Pulse Resp BP Pulse Ox 98.2 F 77 18 134/71 94 11/14/19 11:31 11/14/19 11:31 11/14/19 11:31 11/14/19 11:31 11/14/19 11:31 Oxygen Devices in Use Now: Nasal Cannula Appearance: Mr. Colleen is a middle-aged white male who is laying in bed with LE elevated. He is breathing comfortably on room air and appears to be in no acute distress. He appears acutely ill. Eyes: No Scleral Icterus, PERRLA Ears/Nose/Mouth/Throat: NL Teeth, Lips, Gums, Clear Oropharnyx, Mucous Membranes Moist Neck: NL Appearance and Movements; NL JVP, Trachea Midline Respiratory: Symmetrical Chest Expansion and Respiratory Effort, - - mild end expiratory wheezing Cardiovascular: NL Sounds; No Murmurs; No JVD, RRR, No Edema Abdominal: NL Sounds; No Tenderness; No Distention, No Hepatosplenomegaly Extremities: No Edema, No Clubbing, Cyanosis Neurological: Alert and Oriented x 3 Result Diagrams: 11/14/19 05:23 11/13/19 05:31 Microbiology and Other Data: Microbiology 11/09/19 11:04 Stool Occult Blood (JONH) - Final Stool Assess/Plan/Problems-Billing Assessment: 69 yo white male with PMHx asthma, anxiety/depression, migraines, and colostomy s/p sigmoid colectomy presents with SOB, palpitations, and melena and is found to have GI bleeding due to ulcers and influenza. - Patient Problems (1) Asthma Comment: -end expiratory wheeze throughout b/l lung burroughs -CXR unremarkable -low suspicion for pna- pt without leukocytosis, fever, CXR abnormality -susepct asthma exacerbation -round the clock nebulizers -continue advair diskus -no steroids in setting of recent GIB from ulcer -lasix 20 IV x1 with good improvement (2) GI bleed Comment: -presented with melenic output from colostomy and SOB with exertion, found to have anemia -suspected GI bleed given EGD findings of duodenal ulcers, but not active bleeding per Dr. Gallagher -she did note some duodenal inflammation that is blocking a motile food bolus, but was unable to scope past this so an actively bleeding ulcer cannot be ruled out -will continue BID PPI PO -continue to monitor H&H- trending up -no melena over last 2 day -tolerating soft diet (3) Influenza B Comment: -influenza B positive -afebrile -continue tamiflu 75mg BID (4) Chronic migraine Comment: -uses frequent NSAIDs for chronic migraines -discussed need to d/c NSAID use in setting up GI bleed (5) Anxiety Comment: -continue duloxetine (6) History of heroin use Comment: -continue methadone (7) DVT prophylaxis Comment: -SCDs -chemoprophylaxis contraindicated in the setting of GIB (8) Full code status Status and Disposition: Inpatient. Discharge when stable.
--- NOTE | 2019-11-14 17:56 | PN ---
Hospitalist Progress Note Date of Service: 11/14/19 D-dimer was WNL; therefore, will not pursue CTA chest.
[2019-11-14] MEDS: DULoxetine DR CAP* 60 MG CAP.DR PO SCH (21:49)
[2019-11-15 06:24] LABS: Albumin 3.5 g/dL (3.2-5.2); Albumin/Globulin Ratio 1.2 (1-3); BUN/Creatinine Ratio 30.9 (8-20); EGFR African American 96.9 (>60); Globulin 2.9 g/dL (2-4); Potassium 3.7 mmol/L (3.5-5.0); Total Bilirubin 0.5 mg/dL (0.2-1.0); Total Protein 6.4 g/dL (6.4-8.9)
[2019-11-15] MEDS: Methadone TAB* 10 MG PO SCH (09:37)
[2019-11-15] MEDS: Cetirizine* 10 MG TAB PO SCH (09:37)
[2019-11-15] MEDS: Oseltamivir CAP* 75 MG CAP PO SCH (09:37)
[2019-11-15] MEDS: Pantoprazole TAB * 40 MG TAB PO SCH (09:37)
--- NOTE | 2019-11-15 11:08 | PN ---
Subjective Date of Service: 11/15/19 Interval History: Patient seen and examined at bedside. Mr. Macias is very anxious, stating he felt better yesterday and was hopeful to go home but feels weak and worn out this morning. He just had a coughing fit. Denies CP. States he always has breathing problems. He reports that he did have increased urination yesterday but this has since stopped. No dark output from colostomy. Family History: Unchanged from Admission Social History: Unchanged from Admission Past Medical History: Unchanged from Admission Objective Active Medications: Acetaminophen (Tylenol Tab*) 650 mg PO Q4H PRN PRN Reason: MILD PAIN or TEMP > 100.4 Last Admin: 11/14/19 10:48 Dose: 650 mg Albuterol (Ventolin 2.5 Mg/3 Ml Neb.Ivy*) 2.5 mg INH [id number] AWAKE PRN PRN Reason: scheduled order already exists Cetirizine HCl (Zyrtec*) 10 mg PO DAILY [facility] Last Admin: 11/15/19 09:37 Dose: 10 mg Duloxetine HCl (Cymbalta Cap*) 60 mg PO BEDTIME [facility] Last Admin: 11/14/19 21:49 Dose: 60 mg Methadone HCl (Dolophine Tab*) 70 mg PO DAILY [facility] Last Admin: 11/15/19 09:37 Dose: 70 mg Pantoprazole Sodium (Protonix Tab*) 40 mg PO BID [facility] Last Admin: 11/15/19 09:37 Dose: 40 mg Fluticasone/Salmeterol (Advair Diskus 250-50*) 1 puff INH DAILY [facility] Last Admin: 11/14/19 08:24 Dose: 1 puff Throat Lozenges (Chloraseptic Kemi*) 1 kemi MT Q6H PRN PRN Reason: SORE THROAT Last Admin: 11/13/19 21:21 Dose: 1 kemi Vital Signs - 8 hr 11/15/19 11/15/19 11/15/19 03:33 07:15 09:37 Temperature 97.2 F Pulse Rate 78 76 Respiratory 12 12 16 Rate Blood Pressure 147/77 145/85 (mmHg) O2 Sat by Pulse 96 95 Oximetry Oxygen Devices in Use Now: None Appearance: 69 yo male, lying in bed, NAD but anxious. Able to talk in complete sentences. Eyes: No Scleral Icterus, PERRLA Ears/Nose/Mouth/Throat: Clear Oropharnyx, Mucous Membranes Moist Neck: NL Appearance and Movements; NL JVP Respiratory: Symmetrical Chest Expansion and Respiratory Effort, Clear to Auscultation Cardiovascular: NL Sounds; No Murmurs; No JVD, RRR, No Edema Abdominal: NL Sounds; No Tenderness; No Distention, - - left ostomy Extremities: No Clubbing, Cyanosis Skin: No Rash or Ulcers Neurological: Alert and Oriented x 3, NL Muscle Strength and Tone Result Diagrams: 11/14/19 05:23 11/15/19 05:31 Microbiology and Other Data: Microbiology 11/09/19 11:04 Stool Occult Blood (JONH) - Final Stool Assess/Plan/Problems-Billing Assessment: 69 yo white male with PMHx asthma, anxiety/depression, migraines, and colostomy s/p sigmoid colectomy presents with SOB, palpitations, and melena and is found to have GI bleeding due to ulcers and influenza. - Patient Problems (1) Asthma Code(s): J45.909 - UNSPECIFIED ASTHMA, UNCOMPLICATED Comment: -no wheezing noted this morning -CXR unremarkable -low suspicion for pna- pt without leukocytosis, fever, CXR abnormality -suspect asthma exacerbation -round the clock nebulizers, now prn -continue advair diskus -no steroids in setting of recent GIB from ulcer -lasix 20 IV x1 with good improvement (2) Influenza B Code(s): J10.1 - FLU DUE TO OTH IDENT INFLUENZA VIRUS W OTH RESP MANIFEST Comment: -influenza B positive -afebrile -continue tamiflu 75mg BID x 5 days (3) GI bleed Code(s): K92.2 - GASTROINTESTINAL HEMORRHAGE, UNSPECIFIED Comment: -presented with melenic output from colostomy and SOB with exertion, found to have anemia -suspected GI bleed given EGD findings of duodenal ulcers, but not active bleeding per Dr. Gallagher -she did note some duodenal inflammation that is blocking a motile food bolus, but was unable to scope past this so an actively bleeding ulcer cannot be ruled out -will continue BID PPI PO -continue to monitor H&H- trending up -no melena over last 2 day -tolerating soft diet -follow up outpatient with Dr. Gallagher (4) Chronic migraine Code(s): G43.709 - CHRONIC MIGRAINE W/O AURA, NOT INTRACTABLE, W/O STAT MIGR Comment: -uses frequent NSAIDs for chronic migraines -discussed need to d/c NSAID use in setting up GI bleed (5) Anxiety Code(s): F41.9 - ANXIETY DISORDER, UNSPECIFIED Comment: -continue duloxetine (6) History of heroin use Code(s): Z87.898 - PERSONAL HISTORY OF OTHER SPECIFIED CONDITIONS Comment: -continue methadone (7) DVT prophylaxis Code(s): VZH5573 - Comment: -SCDs -chemoprophylaxis contraindicated in the setting of GIB (8) Full code status Code(s): Z78.9 - OTHER SPECIFIED HEALTH STATUS Status and Disposition: Inpatient. Discharge when stable, possibly later today. Attending: Saloni Smith
[2019-11-15 11:50] VITALS: BP 143/70
[2019-11-15] MEDS: Fluticasone-Salmeterol 250-50* DISKUS INH SCH (11:56)
[2019-11-15] MEDS: Acetaminophen TAB* 325 MG PO PRN (14:03)
--- NOTE | 2019-11-16 00:13 | DS ---
AMENDED REPORT NOW INCLUDES DESIGNATED COSIGNER - ESIGNED BEFORE ADJUSTMENTS CC: Dr. Shazia Domingo * MEDICINE DISCHARGE SUMMARY: DATE OF ADMISSION: 11/09/19 DATE OF DISCHARGE: 11/15/19 PROVIDER: Ngozi Snadhu NP ATTENDING PHYSICIAN: Saloni Smith MD * (as dictated by Ngozi Sandhu NP) PRIMARY CARE PROVIDER: Shazia Domingo DO at [facility]. CONSULTING PROVIDER: Ludy Gallagher MD, Gastroenterology. PRIMARY DISCHARGE DIAGNOSES: 1. Upper gastrointestinal hemorrhage secondary to duodenal ulcers. 2. Acute blood loss anemia. 3. Influenza B. SECONDARY DISCHARGE DIAGNOSES: 1. Asthma. 2. Migraines. 3. Anxiety. 4. Depression. 5. Diverticulosis. 6. History of constipation. 7. History of Clostridium difficile. 8. History of polysubstance abuse. 9. Opioid use disorder, on methadone. MEDICATIONS AT DISCHARGE: 1. Methadone 70 mg daily. The patient obtained this from [facility] in [place], [place]. 2. Advair 250/50 one puff inhaled b.i.d. 3. Duloxetine ER 50 mg at bedtime. 4. Albuterol inhaler 2 puffs inhaled q.4 hours p.r.n. 5. Acetaminophen 650 q.4 hours p.r.n. 6. Protonix 40 mg b.i.d. 7. Tamiflu 75 mg x2 additional days. HOSPITAL COURSE OF STAY: For full details, please refer to the H and P provided by Loni Clifford on admission. In summary, this is a 69-year-old male who presented to the ER with concerns for shortness of breath and palpitations. He was noted to have normocytic anemia upon evaluation and was admitted and supported with Protonix bolus and drip with a plan of CTA. He also had shortness of breath that was concerning. Upon further evaluation, he was found to have positive flu on 11/10/19, was placed on droplet precautions. He did have chest x-rays done with concern for pneumonia, but it was thought that most of his respiratory symptoms were secondary to his asthma and recent diagnosis of influenza B. He was placed on Tamiflu supported with [id number] nebulizers and his respiratory support medications including Advair. He was given a dose of Lasix on 11/14/19, with good result and appropriate diuresis. In regards to his gastrointestinal bleeding during this time here, he did have an EGD, which noted some duodenal inflammation. He was noted to have food bolus , the physician was unable to move the scope past this and was unable to see if there is an actively bleeding ulcer. He has been continued on b.i.d. PPI and will continue this as an outpatient. He is recommended followup as an outpatient with Dr. Gallagher. On the day of discharge, Mr. Macias initially reports that he had a coughing spell and felt very anxious about going home, felt very weak. After rest and supportive care, he was able to demonstrate ambulation around the unit with appropriate O2 saturations and agreed to go home. He has a plan to follow up tomorrow at [facility] to resume his methadone treatment. Does not need a script for that today. OUTPATIENT FOLLOWUP NEEDS: He is to follow up with his PCP and Dr. Nora Gibson. The office will call him for appointment in the [facility] and help connect him with Dr. Gallagher's office for a followup. He has been sent prescriptions to his pharmacy for his pantoprazole and for his Tamiflu. DIET: Soft diet, advance as tolerated. ACTIVITY: As tolerated. CONDITION: Improved, stable. DISPOSITION: To home. TIME SPENT: Approximately 45 minutes was spent on this discharge. Again, this is only a brief summary of the patient's hospital course of stay. For full details, please refer to the full medical record including consultations and operative report. If you have any further questions, please feel to contact me at [phone]. NGOZI SANDHU, DEANGELO [id number]/[facility] #: [id number] JACKLYN
== END 2019-11-15 16:30 | disposition home or self-care (01) | DRG 812 ==
LOC: ED 09:34 → MED 12:01 → OBSVTOIN 11-10 10:00
PROVIDERS: ADMIT Internal Medicine; ATTEND Internal Medicine
PROC: 30233N1 Transfusion of Nonautologous Red Blood Cells into Peripheral Vein, Percutaneous Approach (ICD-10-PCS; 2019-11-09)
PROC: 0DD68ZX Extraction of Stomach, Via Natural or Artificial Opening Endoscopic, Diagnostic (ICD-10-PCS; principal; 2019-11-10)
DX: D62 Acute posthemorrhagic anemia (principal); F11.20 Opioid dependence, uncomplicated; K92.1 Melena; K26.9 Duodenal ulcer, unspecified as acute or chronic, without hemorrhage or perforation; J10.1 Influenza due to other identified influenza virus with other respiratory manifestations; J45.909 Unspecified asthma, uncomplicated; F41.9 Anxiety disorder, unspecified; F32.9 Major depressive disorder, single episode, unspecified; G43.709 Chronic migraine without aura, not intractable, without status migrainosus; Z93.3 Colostomy status; Z79.51 Long term (current) use of inhaled steroids; Z79.899 Other long term (current) drug therapy; Z88.8 Allergy status to other drugs, medicaments and biological substances; Z82.69 Family history of other diseases of the musculoskeletal system and connective tissue; Z87.891 Personal history of nicotine dependence
CPT/HCPCS: 36415; 71045; 71046; 80048; 80053; 82270; 83735; 84443; 84484; 85014; 85018; 85025; 85049; 85379; 85610; 85730; 86850; 86900; 86901; 86922; 87070; 87077; 93005; 94640; 99156; 99157; 99284; A9270-GY; G0378; J1200; J1940; J2250; J2920; J3010; J3480; P9040

== ENCOUNTER 2020-04-01 09:45 | Inpatient (IN) ==
[~2020-04-01 09:45] MED LIST changes: +Buffered Lidocaine 1% SYRIN 1 ml INTRADERM ONE; +ERTApenem(*) 1 GM in NS 0.9% 50 ML 50 ML IVPB SCH; +Lactated Ringers 1000 ml BAG 1,000 ML IV SCH; -Sulfamethox/Trimethoprim DS 800/160* TAB PO ONE
[2020-04-01] MEDS ORDERED: Midazolam 2 mg/2 ml VIAL 1 mg/ml 2 ml VIAL (2 mg) ONE ×2 (09:50→17:47)
[2020-04-01] MEDS ORDERED: Propofol 10 MG/ML 20 ML BTL ONE (09:50)
[2020-04-01] MEDS ORDERED: Lidocaine 0.5% SDV 50 ML VIAL ONE (09:50)
[2020-04-01] MEDS ORDERED: fentaNYL 250 mcg/5 ml 50 MCG/ML 5 ml VIAL (250 MCG) ONE (09:50)
[2020-04-01] MEDS ORDERED: Heparin 5000 UNITS/ML 1 mL VIAL ONE (10:39)
[2020-04-01] MEDS ORDERED: Buffered Lidocaine 1% SYRIN 1 ml INTRADERM ONE (10:39)
[2020-04-01] MEDS ORDERED: Bupivacaine 0.25% EPI 200,000 30 ML SDV ONE ×2 (11:01→15:34)
[2020-04-01] MEDS ORDERED: Succinylcholine 200 mg VIAL 20 mg/ml 10 ml VIAL (200 mg) ONE ×2 (11:35→17:46)
[2020-04-01] MEDS ORDERED: Rocuronium 50 mg VIAL 10 mg/ml 5 ml VIAL (50 mg) ONE ×2 (11:35→18:16)
[2020-04-01] MEDS ORDERED: METHADONE 10 MG/ML PO ONE (11:52)
[2020-04-01] MEDS ORDERED: Dexamethasone IV 4 MG/ML VIAL 1 ml VIAL ONE (12:14)
[2020-04-01] MEDS ORDERED: diPHENhydraMINE IV 50 MG/ML 1 ml VIAL (BENADRYL) ONE (12:15)
[2020-04-01 12:28] LABS: Urine Benzodiazepine Screen None Detected (None Detect); Urine Buprenorphine Screen None Detected (None Detect); Urine Fentanyl Screen Presumptive Positive (None Detect); Urine Hydrocodone Screen None Detected (None Detect); Urine Opiates Screen None Detected (None Detect)
[2020-04-01] MEDS ORDERED: HYDROmorphone 1 MG/1 ML SYRINGE ONE ×2 (12:51→16:43)
[2020-04-01] MEDS ORDERED: Ondansetron 4 mg VIAL 2 MG/ML 2 ml VIAL IV PRN (15:55)
[2020-04-01] MEDS ORDERED: Albuterol/Ipratropium NEB.SOL (2.5/0.5 MG) 3 ML NEB.SOLN INH PRN (16:00)
[2020-04-01] MEDS ORDERED: Naloxone 0.4 mg VIAL 0.4 mg/ml 1 ml VIAL IV PRN (16:40)
[2020-04-01] MEDS: HYDROmorphone 1 MG/1 ML SYRINGE IV PRN ×5 (16:44→17:31)
[2020-04-01 17:36] LABS: ABS Lymphocytes 0.4 10^3/ul (1.0-4.8); ABS Monocytes 0.4 10^3/ul (0-0.8); Hematocrit 32 % (42-52); Hemoglobin 10.9 g/dL (14.0-18.0); Lymphocyte % 2.7 %; Mean Corpuscular HGB Conc 35 g/dL (31-36); Mean Corpuscular Hemoglobin 30 pg (27-31); Mean Corpuscular Volume 87 fL (80-94); Mean Platelet Volume 7.3 fL (7.4-10.4); Platelet Count 169 10^3/uL (150-450); Red Blood Count 3.66 10^6 /uL (4.18-5.48); Red Cell Distribution Width 14 % (10-15); White Blood Count 14.2 10^3/uL (3.5-10.8)
[2020-04-01] MEDS ORDERED: fentaNYL 100 mcg/2 ml 50 MCG/ML VIAL ONE (17:47)
[2020-04-01] MEDS ORDERED: Sugammadex 500 MG/5 ML 5 ml VIAL IV PUSH ONE (19:00)
[2020-04-01] MEDS: HYDROmorphone 0.5 MG/0.5 ML SYRINGE IV SLOW PU PRN (21:32)
[2020-04-01] MEDS: Lactated Ringers 1000 ml BAG 1,000 ML IVPB SCH (21:34)
[2020-04-02] MEDS: HYDROmorphone 0.5 MG/0.5 ML SYRINGE IV SLOW PU PRN ×9 (00:38→22:42)
[2020-04-02] MEDS ORDERED: Heparin 5000 UNITS/ML 1 mL VIAL SUBCUT SCH (06:00)
[2020-04-02 07:14] LABS: BUN/Creatinine Ratio 22.7 (8-20); Calcium 7.8 mg/dL (8.6-10.3); EGFR African American 104.2 (>60); EGFR Non-African American 86.1 (>60); Magnesium 1.2 mg/dL (1.9-2.7); Potassium 3.8 mmol/L (3.5-5.0)
[2020-04-02] MEDS: Lactated Ringers 1000 ml BAG 1,000 ML IVPB SCH ×2 (07:32→19:11)
[2020-04-02 09:48] LABS: Hematocrit 24 % (42-52); Hemoglobin 8.2 g/dL (14.0-18.0); Mean Corpuscular HGB Conc 35 g/dL (31-36); Mean Corpuscular Hemoglobin 29 pg (27-31); Mean Corpuscular Volume 84 fL (80-94); Mean Platelet Volume 7.3 fL (7.4-10.4); Platelet Count 133 10^3/uL (150-450); Red Blood Count 2.82 10^6 /uL (4.18-5.48); Red Cell Distribution Width 16 % (10-15); White Blood Count 10.7 10^3/uL (3.5-10.8)
[2020-04-02 09:59] LABS: INR 1.3 (0.82-1.09)
[2020-04-02] MEDS ORDERED: Pantoprazole VIAL 40 MG VIAL IV SCH (11:00)
[2020-04-02 12:20] LABS: Hematocrit 23 % (42-52); Hemoglobin 7.8 g/dL (14.0-18.0)
[2020-04-02] MEDS ORDERED: Magnesium Sulfate 2 gm BAG 2 GM/50 ML BAG IVPB SCH (13:00)
[2020-04-02] MEDS ORDERED: Magnesium Sulfate 4 GM IV IVPB ONE (13:15)
[2020-04-02] MEDS: Albuterol HFA INHALER 8 gm MDI INH PRN ×2 (13:17→20:34)
[2020-04-02 17:35] LABS: Hematocrit 23 % (42-52); Hemoglobin 7.9 g/dL (14.0-18.0)
[2020-04-03] MEDS: HYDROmorphone 0.5 MG/0.5 ML SYRINGE IV SLOW PU PRN ×8 (00:46→19:28)
[2020-04-03] MEDS: Lactated Ringers 1000 ml BAG 1,000 ML IVPB SCH (05:09)
[2020-04-03 05:15] LABS: ABS Lymphocytes 0.6 10^3/ul (1.0-4.8); ABS Monocytes 0.6 10^3/ul (0-0.8); Eosinophil % 0.1 %; Hematocrit 22 % (42-52); Hemoglobin 7.6 g/dL (14.0-18.0); Lymphocyte % 9.7 %; Mean Corpuscular HGB Conc 35 g/dL (31-36); Mean Corpuscular Hemoglobin 29 pg (27-31); Mean Corpuscular Volume 83 fL (80-94); Mean Platelet Volume 7.1 fL (7.4-10.4); Platelet Count 118 10^3/uL (150-450); Red Blood Count 2.61 10^6 /uL (4.18-5.48); Red Cell Distribution Width 16 % (10-15); White Blood Count 6.7 10^3/uL (3.5-10.8)
[2020-04-03 05:28] LABS: BUN/Creatinine Ratio 20.9 (8-20); Calcium 7.9 mg/dL (8.6-10.3); EGFR African American 142.7 (>60); Magnesium 1.9 mg/dL (1.9-2.7); Phosphorus 1.9 mg/dL (2.5-5.0); Potassium 3.1 mmol/L (3.5-5.0)
[2020-04-03] MEDS: Albuterol HFA INHALER 8 gm MDI INH PRN ×2 (08:24→22:33)
[2020-04-03] MEDS ORDERED: KCL 20 MEQ/100 ML IVPREMIX 20 MEQ/100 ML BAG IV SCH (09:00)
[2020-04-03] MEDS ORDERED: Potassium Phosphate IV 15 MMOLE in NS 0.9% 250 ml 250 ML IVPB ONE (09:30)
[2020-04-03] MEDS: D5W 1/2 NS KCl 20 meq 1000 ml 1,000 ML IV SCH (09:31)
[2020-04-03] MEDS: Mometasone/Formoter 200/5 MDI INH SCH (09:43)
[2020-04-04] MEDS: HYDROmorphone 0.5 MG/0.5 ML SYRINGE IV SLOW PU PRN ×5 (01:10→21:40)
[2020-04-04] MEDS: D5W 1/2 NS KCl 20 meq 1000 ml 1,000 ML IV SCH ×2 (01:30→14:50)
[2020-04-04 04:43] LABS: ABS Lymphocytes 0.8 10^3/ul (1.0-4.8); ABS Monocytes 0.6 10^3/ul (0-0.8); Eosinophil % 0.5 %; Hematocrit 21 % (42-52); Hemoglobin 7.2 g/dL (14.0-18.0); Lymphocyte % 14.1 %; Mean Corpuscular HGB Conc 34 g/dL (31-36); Mean Corpuscular Hemoglobin 29 pg (27-31); Mean Corpuscular Volume 86 fL (80-94); Mean Platelet Volume 7.4 fL (7.4-10.4); Platelet Count 123 10^3/uL (150-450); Red Blood Count 2.45 10^6 /uL (4.18-5.48); Red Cell Distribution Width 16 % (10-15); White Blood Count 5.8 10^3/uL (3.5-10.8)
[2020-04-04 04:58] LABS: BUN/Creatinine Ratio 10.2 (8-20); Calcium 7.4 mg/dL (8.6-10.3); EGFR African American 165.3 (>60); EGFR Non-African American 136.6 (>60); Magnesium 1.7 mg/dL (1.9-2.7); Phosphorus 2.4 mg/dL (2.5-5.0); Potassium 3.4 mmol/L (3.5-5.0)
[2020-04-04] MEDS: Mometasone/Formoter 200/5 MDI INH SCH (09:12)
[2020-04-04] MEDS: Albuterol HFA INHALER 8 gm MDI INH PRN ×2 (09:12→21:39)
[2020-04-04] MEDS ORDERED: Potassium Chlor 20 meq TAB.ER PO ONE (12:29)
[2020-04-04] MEDS: Potassium & Sodium Phos 250 mg = 1 PACKET PO SCH ×2 (13:11→21:39)
[2020-04-05] MEDS: HYDROmorphone 0.5 MG/0.5 ML SYRINGE IV SLOW PU PRN ×4 (01:59→20:59)
[2020-04-05] MEDS: D5W 1/2 NS KCl 20 meq 1000 ml 1,000 ML IV SCH (04:27)
[2020-04-05 07:17] LABS: Hematocrit 22 % (42-52); Hemoglobin 7.6 g/dL (14.0-18.0); Mean Corpuscular HGB Conc 35 g/dL (31-36); Mean Corpuscular Hemoglobin 30 pg (27-31); Mean Corpuscular Volume 86 fL (80-94); Mean Platelet Volume 7.4 fL (7.4-10.4); Platelet Count 136 10^3/uL (150-450); Red Blood Count 2.54 10^6 /uL (4.18-5.48); Red Cell Distribution Width 16 % (10-15); White Blood Count 7.9 10^3/uL (3.5-10.8)
[2020-04-05 07:32] LABS: BUN/Creatinine Ratio 8.2 (8-20); Calcium 7.8 mg/dL (8.6-10.3); EGFR African American 159.1 (>60); EGFR Non-African American 131.5 (>60); Magnesium 1.6 mg/dL (1.9-2.7); Phosphorus 2.6 mg/dL (2.5-5.0); Potassium 3.8 mmol/L (3.5-5.0)
[2020-04-05] MEDS: Mometasone/Formoter 200/5 MDI INH SCH (09:21)
[2020-04-05] MEDS: Albuterol HFA INHALER 8 gm MDI INH PRN (20:58)
[2020-04-06 05:04] LABS: Hematocrit 25 % (42-52); Hemoglobin 8.5 g/dL (14.0-18.0); Mean Corpuscular HGB Conc 34 g/dL (31-36); Mean Corpuscular Hemoglobin 29 pg (27-31); Mean Corpuscular Volume 86 fL (80-94); Mean Platelet Volume 7.3 fL (7.4-10.4); Platelet Count 160 10^3/uL (150-450); Red Cell Distribution Width 16 % (10-15); White Blood Count 6.1 10^3/uL (3.5-10.8)
[2020-04-06] MEDS: Mometasone/Formoter 200/5 MDI INH SCH (08:45)
[2020-04-06] MEDS: Heparin 5000 UNITS/ML 1 mL VIAL SUBCUT SCH ×2 (13:20→21:32)
[2020-04-07] MEDS: Heparin 5000 UNITS/ML 1 mL VIAL SUBCUT SCH (05:13)
[2020-04-07] MEDS: Mometasone/Formoter 200/5 MDI INH SCH (08:27)
[2020-04-07 11:42] VITALS: BP 143/78
== END 2020-04-07 11:45 | disposition home health service (06) | DRG 330 ==
LOC: AA 10:42 → SSU 21:05
PROVIDERS: ADMIT Surgery; ATTEND Surgery

== ENCOUNTER 2022-11-06 20:05 | Inpatient (IN) ==
[2022-11-06] MEDS ORDERED: Acetaminophen IV 1 GM/100ML 1,000 MG/100 ML BAG IV ONE (21:06)
[2022-11-06 22:07] LABS: ABS Lymphocytes 0.5 10^3/ul (1.0-4.8); ABS Monocytes 0.3 10^3/ul (0-0.8); Eosinophil % 0.1 %; Hematocrit 36 % (42-52); Hemoglobin 11.7 g/dL (14.0-18.0); Lymphocyte % 5.3 %; Mean Corpuscular HGB Conc 33 g/dL (31-36); Mean Corpuscular Hemoglobin 28 pg (27-31); Mean Corpuscular Volume 87 fL (80-94); Mean Platelet Volume 7.1 fL (7.4-10.4); Platelet Count 221 10^3/uL (150-450); Red Cell Distribution Width 15 % (10-15); Venous Bicarbonate HCO3 24.5 mmol/L (24-28); White Blood Count 8.8 10^3/uL (3.5-10.8)
[2022-11-06 22:33] LABS: High Sens Troponin Baseline 14 pg/mL (<20)
[2022-11-06 22:49] LABS: CO2 Carbon Dioxide 24 mmol/L (22-32); Calcium 9.4 mg/dL (8.6-10.3); Chloride 107 mmol/L (101-111); Sodium 141 mmol/L (135-145)
[2022-11-06 22:55] LABS: ALT 20 U/L (7-52); Albumin/Globulin Ratio 1.2 (1-3); Alcohol, S < 13 mg/dL (<13); Alkaline Phosphatase 67 U/L (35-149); Blood Urea Nitrogen 35 mg/dL (6-24); Creatinine, Serum 1.02 mg/dL (0.67-1.17); Globulin 3.4 g/dL (2-4); Glucose 109 mg/dL (70-100); Total Protein 7.4 g/dL (6.4-8.9); eGFR CKD-EPI 79.1 (>60)
[2022-11-06 23:00] LABS: INR 1.21 (0.88-1.18)
[2022-11-06 23:21] LABS: AST 40 U/L (13-39); Anion Gap 10 mmol/L (2-11); Potassium 3.6 mmol/L (3.5-5.0)
[2022-11-06 23:26] LABS: High Sensitivity Troponin 1 Hr 15 pg/mL (<20)
[2022-11-06 23:53] LABS: Urine Appearance Clear; Urine Bilirubin Negative (Negative); Urine Blood Negative (Negative); Urine Color Yellow; Urine Glucose Negative (Negative); Urine Ketones 1+ (Negative); Urine Nitrite Negative (Negative); Urine Protein Negative (Negative); Urine Urobilinogen Negative (Negative)
[2022-11-07] MEDS ORDERED: Iohexol 350 (CONTRAST) 500 ML MDV IV ONE (00:02)
[2022-11-07 00:14] LABS: Urine Benzodiazepine Screen Presumptive Positive (None Detect); Urine Cannabinoids Screen None Detected (None Detect); Urine Opiates Screen Presumptive Positive (None Detect)
[2022-11-07] MEDS ORDERED: Droperidol 5 MG/2 ML 2 ML VIAL IV ONE (04:49)
[2022-11-07] MEDS ORDERED: Albuterol HFA INHALER 8 gm MDI INH PRN (05:20)
[2022-11-07] MEDS ORDERED: Lactated Ringers 1000 ml BAG 1,000 ML IV ONE (09:07)
[2022-11-07 12:59] LABS: INR 1.23 (0.88-1.18)
[2022-11-07 13:02] LABS: ABS Basophils 0.1 10^3/ul (0-0.2); ABS Eosinophils 0.1 10^3/ul (0-0.6); ABS Lymphocytes 1.1 10^3/ul (1.0-4.8); ABS Monocytes 0.4 10^3/ul (0-0.8); ABS Neutrophils 4.9 10^3/ul (1.5-7.7); Eosinophil % 2.1 %; Hematocrit 35 % (42-52); Hemoglobin 11.4 g/dL (14.0-18.0); Lymphocyte % 16.5 %; Mean Corpuscular HGB Conc 33 g/dL (31-36); Mean Corpuscular Hemoglobin 29 pg (27-31); Mean Corpuscular Volume 88 fL (80-94); Platelet Count 209 10^3/uL (150-450); Red Blood Count 3.96 10^6 /uL (4.18-5.48); Red Cell Distribution Width 15 % (10-15); White Blood Count 6.6 10^3/uL (3.5-10.8)
[2022-11-07 13:23] LABS: Creatinine, Serum 1.12 mg/dL (0.67-1.17); Potassium 3.8 mmol/L (3.5-5.0); eGFR CKD-EPI 70.7 (>60)
[2022-11-07] MEDS ORDERED: ceFAZolin 2 GM in NS PREMIX 2 GM/100 ML BAG IVPB ONE (13:44)
[2022-11-07] MEDS ORDERED: Lidocaine 2% PF 5 ML VIAL ONE (14:43)
[2022-11-07] MEDS ORDERED: Propofol 10 MG/ML 20 ML BTL ONE (14:43)
[2022-11-07] MEDS ORDERED: Rocuronium 50 mg VIAL 10 mg/ml 5 ml VIAL (50 mg) ONE (14:44)
[2022-11-07] MEDS ORDERED: fentaNYL 100 mcg/2 ml 50 MCG/ML VIAL ONE (14:44)
[2022-11-07] MEDS ORDERED: Midazolam 2 mg/2 ml VIAL 1 mg/ml 2 ml VIAL (2 mg) ONE (14:47)
[2022-11-07] MEDS ORDERED: Ondansetron 4 mg VIAL 2 MG/ML 2 ml VIAL ONE (16:23)
[2022-11-07] MEDS ORDERED: Dexamethasone IV 4 MG/ML VIAL 1 ml VIAL ONE (16:23)
[2022-11-07] MEDS ORDERED: Vancomycin 1,000 MG VIAL ONE (16:30)
[2022-11-07] MEDS ORDERED: Artificial Tear OPHTH.OINT 3.5 GM ONE (16:35)
[2022-11-07] MEDS ORDERED: HYDROmorphone 0.5 MG/0.5 ML SYRINGE ONE (17:10)
[2022-11-07] MEDS ORDERED: Acetaminophen IV 1 GM/100ML 1,000 MG/100 ML BAG IV ONE (17:11)
[2022-11-07] MEDS ORDERED: Phenylephrine 40 mcg/mL 10mL (400mcg) SYRINGE ONE (17:11)
[2022-11-07] MEDS ORDERED: Naloxone 0.4 mg VIAL 0.4 mg/ml 1 ml VIAL IV PRN (17:58)
[2022-11-07] MEDS ORDERED: HYDROmorphone 1 MG/1 ML SYRINGE IV PRN (17:58)
[2022-11-07] MEDS ORDERED: fentaNYL 100 mcg/2 ml 50 MCG/ML VIAL IV PRN (17:58)
[2022-11-07 20:27] LABS: Hepatitis B Surface Antigen Nonreactive (Nonreactive)
[2022-11-07 20:44] LABS: Hepatitis C Antibody Negative (Negative)
[2022-11-07 20:48] LABS: HIV 4th Generation Nonreactive (Nonreactive)
[2022-11-08] MEDS: ceFAZolin 2 GM in NS PREMIX 2 GM/100 ML BAG IVPB SCH ×3 (00:32→16:21)
[2022-11-08] MEDS: Acetaminophen IV 1 GM/100ML 1,000 MG/100 ML BAG IV PRN ×2 (05:19→19:39)
[2022-11-08 07:37] LABS: ABS Lymphocytes 0.6 10^3/ul (1.0-4.8); ABS Monocytes 0.6 10^3/ul (0-0.8); ABS Neutrophils 7.7 10^3/ul (1.5-7.7); Eosinophil % 0.1 %; Hematocrit 27 % (42-52); Mean Corpuscular HGB Conc 33 g/dL (31-36); Mean Corpuscular Hemoglobin 29 pg (27-31); Mean Corpuscular Volume 88 fL (80-94); Platelet Count 171 10^3/uL (150-450); Red Blood Count 3.08 10^6 /uL (4.18-5.48); Red Cell Distribution Width 15 % (10-15); White Blood Count 8.9 10^3/uL (3.5-10.8)
[2022-11-08 07:46] LABS: Creatinine, Serum 1.13 mg/dL (0.67-1.17); Magnesium 1.8 mg/dL (1.9-2.7); Potassium 3.7 mmol/L (3.5-5.0); eGFR CKD-EPI 69.9 (>60)
[2022-11-08] MEDS: Enoxaparin 40 MG/0.4 ML SYR SUBCUT SCH (08:29)
[2022-11-09 08:10] LABS: Hematocrit 26 % (42-52); Hemoglobin 8.5 g/dL (14.0-18.0)
[2022-11-09] MEDS: Enoxaparin 40 MG/0.4 ML SYR SUBCUT SCH (08:32)
[2022-11-09 09:08] LABS: Calcium 7.7 mg/dL (8.6-10.3); Magnesium 1.8 mg/dL (1.9-2.7); Potassium 3.8 mmol/L (3.5-5.0)
[2022-11-09] MEDS: Acetaminophen IV 1 GM/100ML 1,000 MG/100 ML BAG IV PRN (09:37)
[2022-11-09] MEDS ORDERED: Senna TAB 8.6 mg TAB PO PRN (09:54)
[2022-11-09] MEDS ORDERED: NS 0.9% 1000 ml BAG 1,000 ML IV ONE (09:54)
[2022-11-09] MEDS ORDERED: Polyethylene Glycol 3350 17 GM PACKET PO SCH (10:00)
[2022-11-09 10:47] LABS: Creatinine, Serum 1.14 mg/dL (0.67-1.17); eGFR CKD-EPI 69.2 (>60)
[2022-11-09] MEDS: Magnesium Hydroxide LIQ 30 ML UDC PO SCH ×2 (10:55→20:08)
[2022-11-09 19:29] LABS: High Sensitivity Troponin 1 Hr 8 pg/mL (<20)
[2022-11-10 08:00] LABS: Hematocrit 24 % (42-52); Hemoglobin 7.6 g/dL (14.0-18.0)
[2022-11-10] MEDS ORDERED: Polyethylene Glycol 3350 17 GM PACKET PO PRN (08:41)
[2022-11-10] MEDS: Enoxaparin 40 MG/0.4 ML SYR SUBCUT SCH (09:42)
[2022-11-10] MEDS: Acetaminophen IV 1 GM/100ML 1,000 MG/100 ML BAG IV PRN (10:40)
[2022-11-10] MEDS: Lactated Ringers 1000 ml BAG 1,000 ML IV SCH (11:52)
[2022-11-11] MEDS: Acetaminophen IV 1 GM/100ML 1,000 MG/100 ML BAG IV PRN ×2 (03:40→19:50)
[2022-11-11 08:06] LABS: Hematocrit 26 % (42-52); Hemoglobin 8.5 g/dL (14.0-18.0)
[2022-11-11] MEDS: Enoxaparin 40 MG/0.4 ML SYR SUBCUT SCH (08:40)
[2022-11-11 08:53] LABS: Calcium 8.1 mg/dL (8.6-10.3); Creatinine, Serum 0.82 mg/dL (0.67-1.17); Magnesium 2.1 mg/dL (1.9-2.7); eGFR CKD-EPI 94.5 (>60)
[2022-11-11 10:17] LABS: Potassium 4.2 mmol/L (3.5-5.0)
[2022-11-11] MEDS: Lactated Ringers 1000 ml BAG 1,000 ML IV SCH (19:57)
[2022-11-11] MEDS ORDERED: Calcium Carb (TUMS) 500 mg CHEW TAB PO ONE (21:12)
[2022-11-11] MEDS ORDERED: Lactated Ringers 1000 ml BAG 1,000 ML IV SCH (21:12)
[2022-11-11] MEDS: Calcium Carb (TUMS) 500 mg CHEW TAB ONE ×2 (22:15→23:37)
[2022-11-12] MEDS: Enoxaparin 40 MG/0.4 ML SYR SUBCUT SCH (08:53)
[2022-11-12] MEDS: Acetaminophen IV 1 GM/100ML 1,000 MG/100 ML BAG IV PRN (16:09)
[2022-11-13] MEDS: Enoxaparin 40 MG/0.4 ML SYR SUBCUT SCH (08:35)
[2022-11-14 05:59] LABS: Hematocrit 28 % (42-52); Hemoglobin 9.5 g/dL (14.0-18.0)
[2022-11-14] MEDS: Enoxaparin 40 MG/0.4 ML SYR SUBCUT SCH (08:03)
[2022-11-14] MEDS ORDERED: Butalb/Acetamin/Caff TAB 325-50-40MG PO PRN (09:31)
[2022-11-14] MEDS ORDERED: ASA-APAP-CAFFEINE ES (NF) TAB PO SCH (10:00)
[2022-11-14 11:27] VITALS: BP 132/72
== END 2022-11-14 14:57 | disposition swing bed (61) | DRG 522 ==
LOC: ED 20:05 → EDHOLD 11-07 05:06 → SUATTDRO 11-07 05:06 → EDHOLD 11-07 07:48 → SSU 11-07 08:12
PROVIDERS: ADMIT Hospitalist; ATTEND Internal Medicine

== ENCOUNTER 2022-11-14 08:59 | Inpatient (IN) ==
[2022-11-14] MEDS ORDERED: Polyethylene Glycol 3350 17 GM PACKET PO PRN ×2 (13:51→13:58)
[2022-11-14] MEDS ORDERED: Senna TAB 8.6 mg TAB PO PRN ×2 (13:51→13:58)
[2022-11-14] MEDS ORDERED: Albuterol HFA INHALER 8 gm MDI INH PRN (13:58)
[2022-11-14] MEDS ORDERED: Butalb/Acetamin/Caff TAB 325-50-40MG PO PRN ×2 (14:00→17:00)
[2022-11-14] MEDS: Enoxaparin 40 MG/0.4 ML SYR SUBCUT SCH (15:07)
[2022-11-15] MEDS: Ondansetron 4 mg VIAL 2 MG/ML 2 ml VIAL IV ONE ×2 (09:37→13:06)
[2022-11-15] MEDS: Enoxaparin 40 MG/0.4 ML SYR SUBCUT SCH (13:06)
[2022-11-16] MEDS: Enoxaparin 40 MG/0.4 ML SYR SUBCUT SCH (15:06)
[2022-11-17] MEDS: Enoxaparin 40 MG/0.4 ML SYR SUBCUT SCH (13:47)
[2022-11-17 17:43] LABS: Albumin 3.5 g/dL (3.2-5.2); Albumin/Globulin Ratio 1.4 (1-3); Calcium 8.9 mg/dL (8.6-10.3); Creatinine, Serum 0.87 mg/dL (0.67-1.17); Globulin 2.5 g/dL (2-4); Phosphorus 2.3 mg/dL (2.5-5.0); Potassium 4.4 mmol/L (3.5-5.0); Total Bilirubin 0.6 mg/dL (0.2-1.0); eGFR CKD-EPI 92.8 (>60)
[2022-11-17] MEDS: Potassium & Sodium Phos 250 mg = 1 PACKET PO SCH ×3 (18:19→22:24)
[2022-11-18] MEDS: Potassium & Sodium Phos 250 mg = 1 PACKET PO SCH (01:54)
[2022-11-18 07:14] LABS: Calcium 8.6 mg/dL (8.6-10.3); Creatinine, Serum 0.8 mg/dL (0.67-1.17); Phosphorus 2.5 mg/dL (2.5-5.0); Potassium 3.7 mmol/L (3.5-5.0); eGFR CKD-EPI 95.2 (>60)
[2022-11-18] MEDS ORDERED: Potassium EFFERVES 25 meq TAB PO ONE (08:35)
[2022-11-18 10:58] VITALS: BP 132/80
[2022-11-18] MEDS: Enoxaparin 40 MG/0.4 ML SYR SUBCUT SCH (14:31)
== END 2022-11-18 14:30 | disposition home health service (06) | DRG 536 ==
LOC: SUATTDRO 15:03 → SSU 15:03
PROVIDERS: ADMIT Hospitalist; ATTEND Internal Medicine

== ENCOUNTER 2022-11-21 14:41 | Inpatient (IN) ==
[2022-11-21] MEDS ORDERED: Lactated Ringers 1000 ml BAG 1,000 ML IV ONE ×2 (15:21→19:13)
[2022-11-21 15:39] LABS: Venous Bicarbonate HCO3 26.8 mmol/L (24-28)
[2022-11-21 16:02] LABS: High Sens Troponin Baseline 11 pg/mL (<20)
[2022-11-21 16:24] LABS: ALT 17 U/L (7-52); Albumin 3.9 g/dL (3.2-5.2); Albumin/Globulin Ratio 1.3 (1-3); Alkaline Phosphatase 82 U/L (35-149); Blood Urea Nitrogen 29 mg/dL (6-24); CO2 Carbon Dioxide 32 mmol/L (22-32); Calcium 9.6 mg/dL (8.6-10.3); Chloride 104 mmol/L (101-111); Creatine Kinase 164 U/L (10-223); Creatinine, Serum 1.51 mg/dL (0.67-1.17); Globulin 2.9 g/dL (2-4); Glucose 107 mg/dL (70-100); Lipase 24 U/L (11.0-82.0); Magnesium 2.1 mg/dL (1.9-2.7); Sodium 141 mmol/L (135-145); Total Protein 6.8 g/dL (6.4-8.9); eGFR CKD-EPI 49.4 (>60)
[2022-11-21 16:34] LABS: Hematocrit 34 % (42-52); Mean Corpuscular HGB Conc 32 g/dL (31-36); Mean Corpuscular Hemoglobin 29 pg (27-31); Mean Corpuscular Volume 90 fL (80-94); Red Blood Count 3.77 10^6 /uL (4.18-5.48); Red Cell Distribution Width 16 % (10-15); White Blood Count 7.7 10^3/uL (3.5-10.8)
[2022-11-21 16:36] LABS: Anion Gap 5 mmol/L (2-11)
[2022-11-21 16:37] LABS: TSH Ultra Thyroid Stim Horm 0.68 mcIU/mL (0.34-5.60)
[2022-11-21 16:38] LABS: Free T4 1.31 ng/dL (0.61-1.12)
[2022-11-21 16:54] LABS: Direct Bilirubin 0.1 mg/dL (0.03-0.18); Indirect Bilirubin 0.4 mg/dL (0.3-1.0); Potassium Redraw 3.6 mmol/L (3.5-5.0); Total Bilirubin 0.5 mg/dL (0.2-1.0)
[2022-11-21 17:04] LABS: High Sensitivity Troponin 1 Hr 11 pg/mL (<20)
[2022-11-21 17:26] LABS: ABS Basophils 0.1 10^3/ul (0-0.2); ABS Eosinophils 0.2 10^3/ul (0-0.6); ABS Lymphocytes 0.8 10^3/ul (1.0-4.8); ABS Monocytes 0.6 10^3/ul (0-0.8); Eosinophil % 2.3 %; Lymphocyte % 10.9 %; Nucleated Red Blood Cells % 0.2; Platelet Count Platelets clumped. 10^3/uL (150-450)
[2022-11-21] MEDS ORDERED: Albuterol HFA INHALER 8 gm MDI INH PRN (19:14)
[2022-11-21 19:36] LABS: C Reactive Protein 33.86 mg/L (<8.01)
[2022-11-21] MEDS ORDERED: Enoxaparin 40 MG/0.4 ML SYR SUBCUT SCH (21:00)
[2022-11-21] MEDS ORDERED: Senna TAB 8.6 mg TAB PO SCH (21:00)
[2022-11-21 21:57] LABS: Urine Appearance Cloudy; Urine Bilirubin Negative (Negative); Urine Blood 1+ (Negative); Urine Color Amber; Urine Glucose Negative (Negative); Urine Ketones Negative (Negative); Urine Nitrite Negative (Negative); Urine Protein Negative (Negative); Urine Specific Gravity 1.017 (1.002-1.030); Urine Urobilinogen Negative (Negative)
[2022-11-21 22:02] LABS: Urine Bacteria Absent (Absent); Urine Red Blood Cell Trace(0-2/hpf) (Absent); Urine Squamous Epithelial Cell Present (Absent); Urine White Blood Cell Absent (Absent)
[2022-11-21 22:12] LABS: Urine Benzodiazepine Screen Presumptive Positive (None Detect); Urine Cannabinoids Screen None Detected (None Detect); Urine Opiates Screen Presumptive Positive (None Detect)
[2022-11-22 06:58] LABS: ABS Basophils 0.1 10^3/ul (0-0.2); ABS Eosinophils 0.2 10^3/ul (0-0.6); ABS Monocytes 0.4 10^3/ul (0-0.8); ABS Neutrophils 1.8 10^3/ul (1.5-7.7); Hematocrit 26 % (42-52); Hemoglobin 8.7 g/dL (14.0-18.0); Lymphocyte % 29.4 %; Mean Corpuscular HGB Conc 34 g/dL (31-36); Mean Corpuscular Hemoglobin 30 pg (27-31); Mean Corpuscular Volume 89 fL (80-94); Mean Platelet Volume 7.3 fL (7.4-10.4); Platelet Count 256 10^3/uL (150-450); Red Blood Count 2.92 10^6 /uL (4.18-5.48); Red Cell Distribution Width 15 % (10-15); White Blood Count 3.5 10^3/uL (3.5-10.8)
[2022-11-22 07:10] LABS: Albumin 2.8 g/dL (3.2-5.2); Albumin/Globulin Ratio 1.3 (1-3); Calcium 8.5 mg/dL (8.6-10.3); Creatinine, Serum 1.25 mg/dL (0.67-1.17); Globulin 2.1 g/dL (2-4); Potassium 3.9 mmol/L (3.5-5.0); Total Bilirubin 0.7 mg/dL (0.2-1.0); Total Protein 4.9 g/dL (6.4-8.9); eGFR CKD-EPI 61.9 (>60)
[2022-11-22] MEDS ORDERED: Polyethylene Glycol 3350 17 GM PACKET PO SCH (09:00)
[2022-11-22 13:27] LABS: Hematocrit 30 % (42-52); Hemoglobin 9.8 g/dL (14.0-18.0); Mean Corpuscular HGB Conc 33 g/dL (31-36); Mean Corpuscular Hemoglobin 29 pg (27-31); Mean Corpuscular Volume 88 fL (80-94); Mean Platelet Volume 7.1 fL (7.4-10.4); Platelet Count 302 10^3/uL (150-450); Red Blood Count 3.36 10^6 /uL (4.18-5.48); Red Cell Distribution Width 15 % (10-15); White Blood Count 4.2 10^3/uL (3.5-10.8)
[2022-11-22 17:53] VITALS: BP 137/72
== END 2022-11-22 19:45 | disposition home or self-care (01) | DRG 92 ==
LOC: ED 14:41 → EDHOLD 18:50 → SUATTDRO 18:50 → MED 22:29
PROVIDERS: ADMIT Internal Medicine; ATTEND Internal Medicine

== ENCOUNTER 2023-02-23 09:25 | Inpatient (IN) ==
[2023-02-23 10:38] LABS: ABS Lymphocytes 0.4 10^3/uL (1.0-4.8); ABS Monocytes 0.5 10^3/uL (0.0-1.1); ABS Neutrophils 3.9 10^3/uL (1.5-7.6); ABS Nucleated RBC 0.01 10^3/ul; Eosinophil % 0.3 %; Hematocrit 28.7 % (38-53); Hemoglobin 9.5 g/dL (13.2-16.3); Lymphocyte % 8.6 %; Mean Corpuscular Hemoglobin 27.5 pg (27-33); Mean Corpuscular Hgb Conc 33.1 g/dL (31-36); Mean Corpuscular Volume 83.2 fL (80-97); Mean Platelet Volume 7.1 fL (7.5-11.2); Nucleated Red Blood Cells % 0.1 /100 WBC (0.0-0.4); Platelet Count 198 10^3/uL (150-450); Red Blood Count 3.45 10^6/uL (4.06-5.63); Red Cell Distribution Width 16.3 % (12-17); White Blood Count 4.8 10^3/uL (3.6-10.2)
[2023-02-23 10:45] LABS: ALT 10 U/L (7-52); AST 23 U/L (13-39); Albumin 3.6 g/dL (3.2-5.2); Albumin/Globulin Ratio 1.1 (1-3); Anion Gap 7 mmol/L (2-16); Blood Urea Nitrogen 27 mg/dL (6-24); CO2 Carbon Dioxide 28 mmol/L (22-32); Calcium 8.6 mg/dL (8.6-10.3); Chloride 103 mmol/L (101-111); Creatinine, Serum 1.24 mg/dL (0.67-1.17); Globulin 3.2 g/dL (2-4); Glucose 87 mg/dL (70-100); Magnesium 1.8 mg/dL (1.9-2.7); Phosphorus 2.5 mg/dL (2.5-5.0); Potassium 3.8 mmol/L (3.5-5.0); Sodium 138 mmol/L (135-145); Total Protein 6.8 g/dL (6.4-8.9); eGFR CKD-EPI 62.2 (>60)
[2023-02-23] MEDS ORDERED: Magnesium Sulfate 2 gm BAG 2 GM/50 ML BAG IVPB ONE (10:48)
[2023-02-23 10:49] LABS: Rapid Strep Molecular Negative (Negative)
[2023-02-23 11:13] LABS: Alkaline Phosphatase 66 U/L (35-149)
[2023-02-23 12:10] LABS: Alcohol, S < 13 mg/dL (<13)
[2023-02-23] MEDS ORDERED: Senna TAB 8.6 mg TAB PO PRN (12:22)
[2023-02-23] MEDS ORDERED: Polyethylene Glycol 3350 17 GM PACKET PO PRN (12:22)
[2023-02-23] MEDS ORDERED: Albuterol HFA INHALER 8 gm MDI INH PRN ×4 (12:26→13:32)
[2023-02-23] MEDS: Mometasone/Formoter 200/5 MDI INH SCH ×2 (13:00→19:40)
[2023-02-23] MEDS: Enoxaparin 30 MG/0.3 ML SYR SUBCUT SCH (13:01)
[2023-02-23] MEDS ORDERED: Remdesivir 100 mg Vial 200 MG in NS 0.9% 250 ml 210 ML IV ONE (14:30)
[2023-02-24 06:39] LABS: ABS Lymphocytes 0.3 10^3/uL (1.0-4.8); ABS Monocytes 0.2 10^3/uL (0.0-1.1); ABS Neutrophils 1.6 10^3/uL (1.5-7.6); Hematocrit 31.5 % (38-53); Hemoglobin 10.4 g/dL (13.2-16.3); Lymphocyte % 14.9 %; Mean Corpuscular Hemoglobin 27.9 pg (27-33); Mean Corpuscular Hgb Conc 33.1 g/dL (31-36); Mean Corpuscular Volume 84.3 fL (80-97); Mean Platelet Volume 6.9 fL (7.5-11.2); Nucleated Red Blood Cells % 0.1 /100 WBC (0.0-0.4); Platelet Count 216 10^3/uL (150-450); Red Blood Count 3.74 10^6/uL (4.06-5.63); Red Cell Distribution Width 16.4 % (12-17); White Blood Count 2.1 10^3/uL (3.6-10.2)
[2023-02-24 06:46] LABS: INR 1.2 (0.88-1.18)
[2023-02-24 06:52] LABS: Albumin 3.6 g/dL (3.2-5.2); Albumin/Globulin Ratio 1.1 (1-3); Calcium 8.7 mg/dL (8.6-10.3); Creatinine, Serum 0.98 mg/dL (0.67-1.17); Globulin 3.4 g/dL (2-4); Potassium 4.1 mmol/L (3.5-5.0); Total Bilirubin 0.3 mg/dL (0.2-1.0); eGFR CKD-EPI 82.4 (>60)
[2023-02-24] MEDS: Mometasone/Formoter 200/5 MDI INH SCH ×2 (07:38→20:08)
[2023-02-24 07:54] LABS: Magnesium 2.2 mg/dL (1.9-2.7)
[2023-02-24] MEDS: Enoxaparin 30 MG/0.3 ML SYR SUBCUT SCH (12:42)
[2023-02-24] MEDS ORDERED: Remdesivir 100 mg Vial 100 MG in NS 0.9% 250 ml 230 ML IV SCH (21:00)
[2023-02-25] MEDS: Mometasone/Formoter 200/5 MDI INH SCH (07:59)
[2023-02-25 08:38] LABS: ABS Lymphocytes 0.6 10^3/uL (1.0-4.8); ABS Monocytes 0.3 10^3/uL (0.0-1.1); ABS Neutrophils 5.9 10^3/uL (1.5-7.6); Hematocrit 31.6 % (38-53); Hemoglobin 10.5 g/dL (13.2-16.3); Lymphocyte % 9.3 %; Mean Corpuscular Hemoglobin 27.8 pg (27-33); Mean Corpuscular Hgb Conc 33.3 g/dL (31-36); Mean Corpuscular Volume 83.3 fL (80-97); Mean Platelet Volume 6.7 fL (7.5-11.2); Platelet Count 241 10^3/uL (150-450); Red Blood Count 3.79 10^6/uL (4.06-5.63); Red Cell Distribution Width 16.2 % (12-17); White Blood Count 6.9 10^3/uL (3.6-10.2)
[2023-02-25 08:59] LABS: INR 1.12 (0.88-1.18)
[2023-02-25 09:04] LABS: Albumin 3.6 g/dL (3.2-5.2); Albumin/Globulin Ratio 1.1 (1-3); Calcium 9.1 mg/dL (8.6-10.3); Creatinine, Serum 0.85 mg/dL (0.67-1.17); Globulin 3.4 g/dL (2-4); Potassium 4.1 mmol/L (3.5-5.0); Total Bilirubin 0.3 mg/dL (0.2-1.0); eGFR CKD-EPI 92.9 (>60)
[2023-02-25 13:28] VITALS: BP 140/67
[2023-02-25] MEDS: Enoxaparin 30 MG/0.3 ML SYR SUBCUT SCH (14:51)
== END 2023-02-25 15:15 | disposition home or self-care (01) | DRG 177 ==
LOC: ED 09:25 → EDHOLD 09:25 → MEDTELE 15:09 → SUATTDRO 15:10
PROVIDERS: ADMIT Internal Medicine; ATTEND Hospitalist